=== PATIENT | female | born 1950 | race Caucasian/White ===

== ENCOUNTER 2017-02-08 09:54 | Emergency (ER) | payer MEDICARE ==
[~2017-02-08] VITALS: Ht 165.1 cm; Wt 76.8 kg
[~2017-02-08 09:54] MED LIST: BACL20TA PO; INSU100I13 SUBQ; INSU100I18 SUBQ; LEVO112T4 PO; MAGN400T4 PO; MERO1VIA IV; MULT-1073 PO; MUPI1OIN6 TP; NIAC500C3 PO; NYST15PO5 TP; POTA20TA16 PO; VANC125C3 PO; WARF3TAB7 PO
[2017-02-08 09:59] VITALS: BP 129/77; PULSE 107; RESP 17; O2SAT 94
--- NOTE | 2017-02-08 10:11 | ED.REPORT ---
HPI-General Illness Date of Service Feb 08, 2017 ED Provider: Vinny Salmon MD The patient is a 67 year old female with history of MS with paresis (diagnosed in 1983), hypertension, diabetes mellitus, recurrent UTIs, atrial fibrillation on Coumadin, and breast cancer s/p mastectomy, who presents to the emergency department for a fever and lethargy that was noted by her family member this morning. The patient has had similar symptoms in the past when she has has UTIs. She has a suprapubic catheter in place. She denies cough, shortness of breath, diarrhea, vomiting or rash. Nursing Notes Stated Complaint: FEVER,DEC LOC Chief Complaint: General Complaint Nursing Notes Reviewed: Yes Allergies: Coded Allergies: metronidazole (Verified Allergy, Severe, N/V, 02/17/16) Cephalosporins (Verified Allergy, Unknown, UNKNOWN (IS TAKING ORAL CEFTIN) , 02/17/16) Quinolones (Verified Allergy, Unknown, UNKNOWN Reaction is to Cipro, ) ciprofloxacin (Verified Allergy, Unknown, 02/17/16) levofloxacin (Verified Allergy, Unknown, UNKNOWN, 02/17/16) metoclopramide HCl (Verified Allergy, Unknown, UNKNOWN, 02/17/16) nitrofurantoin (Verified Allergy, Unknown, UNKNOWN, 02/17/16) scopolamine (Verified Allergy, Unknown, UNKNOWN, 02/17/16) trimethoprim (Verified Allergy, Unknown, TONGUE SWELLING, 03/04/16) Leloqgq-Njh-Xlk Reductase Inhibitor (Verified Adverse Reaction, Severe, ELEVATED LIVER ENZYMES, 02/17/16) Sulfa (Sulfonamide Antibiotics) (Verified Adverse Reaction, Severe, NUMB MOUTH, 02/17/16) Uncoded Allergies: HOSPITAL LINENS (Allergy, Unknown, UNKNOWN, 01/10/14) PLASTIC TAPE (Adverse Reaction, Severe, SKIN IRRITATION, BLISTERS, 01/10/14) Scheduled Baclofen (Baclofen) 20 Mg Tablet 20 MG PO BID Insulin Glargine (Lantus U100 Solostar Insulin Pen) 100 Unit/1 Ml Insuln.pen 30 UNIT SUBQ QAM Insulin Glargine (Lantus U100 Solostar Insulin Pen) 100 Unit/1 Ml Insuln.pen 40 UNIT SUBQ QPM Levothyroxine (Levothyroxine) 112 Mcg Tablet 112 MCG PO DAILY Magnesium Oxide (Magnesium Oxide) 400 Mg Tablet 400 MG PO DAILY Meropenem (Meropenem) 1 Gm Vial 1 GM IV BID Multivits-Min/FA/Lycopene/Lut (Centrum Silver Tablet) 1 Each Tablet 1 EACH PO DAILY Mupirocin (Mupirocin) 2 % Oin.pf.david 0.25 GM TP BID Niacin (Niacin) 500 Mg Capsule.er 500 MG PO BID Nystatin (Nystatin) 15 Gm Powder 1 APPLIC TP TID Potassium Chloride (Potassium Chloride) 20 Meq Tab.er.prt 20 MEQ PO DAILY TAKE WITH FOOD Vancomycin (Vancomycin) 125 Mg Capsule 125 MG PO Q12 Warfarin Sodium (Warfarin Sodium) 3 Mg Tablet 0.5-2 TAB PO DAILY Scheduled PRN Insulin Lispro (HumaLOG U100 Insulin Pen) 100 Unit/1 Ml Insuln.pen 5-10 UNIT SUBQ SS PRN PRN hyperglycemia sliding scale insulin General Time Seen by MD: 10:10 Chief Complaint Fever Hx Obtained From: Patient, Daughter Arrived By: Wheelchair Sudden in Onset?: No Onset Occurred: 5 - 8 hours ago Symptom Duration: Since onset Severity: Current: No pain currently Severity: Maximum: No pain Recent Healthcare: No recent hospitalization Similar Sx Previous: Yes Past Medical History Past Medical History Multiple Sclerosis with paresis Nephrolithiasis Recurrent sacral decubitus ulcers Hypothyroid Chronic coumadin anticoagulation DVT and PE Breast cancer Mouth cancer AFib Aspiration penumonia GI Bleeds Liver Disease MRSA Reports: Diabetes mellitus, Hypertension Past Surgical History Mastectomy (Right) Chronic suprapubic catheter Colostomy Pacemaker Family History Noncontributory Smoking History Never Smoker Social History Other Social History: Good social support, Local resident Ambulatory Status Wheelchair Review of Systems Full Review of Systems Constitutional: Reports: Fatigue, Fever, Lethargy Respiratory: Denies: Non-productive cough, Shortness of breath GI: Denies: Diarrhea, Vomiting Skin: Denies Rash Complete sys rev & neg: except as marked. Physical Exam Vital Signs Vital Signs Date Time Temp Pulse Resp B/P Pulse Ox O2 Delivery O2 Flow Rate FiO2 02/08/17 09:59 37.1 107 17 129/77 94 Room Air Initial VS: Reviewed Head / Eyes: Atraumatic, Normocephalic, PERRL ENT: Mucous membranes moist, Conjunctiva normal, No scleral icterus Neck: Supple, Non-tender, Full range of motion Respiratory: Breath sounds normal, Clear to auscultation, No respiratory distress Cardiovascular: Regular rate & rhythm, Heart sounds normal, Intact distal pulses Abdomen / GI: Soft, Non-tender, No guarding, No rebound, No distention Lymphatic: No lymphadenopathy Extremities: No swelling, No tenderness Skin: Warm, Dry, No cyanosis Neurologic: Alert, Oriented, Nonfocal Psychiatric: Mood/affect normal, Behavior normal, Normal thought content General/Constitutional: Awake, Alert, Cooperative Wheelchair bound. Sleepy but alert, and easily arousable. Interpretation & Diagnostics Lab Results Interpretation Test 02/08/17 10:40 Urine Color Bloody (YELLOW) Urine Appearance Turbid (CLEAR,HAZY) Urine pH 8.5 (5.0-8.0) Urine Specific [place] 1.020 (1.003-1.035) Urine Protein 100mg/dL (NEG,TRACE) Urine Glucose (UA) Negativemg/dL (NEGATIVE) Urine Ketones Negativemg/dL (NEGATIVE) Urine Occult Blood Large (NEGATIVE) Urine Nitrite Negative (NEGATIVE) Urine Bilirubin Negative (NEGATIVE) Urine Urobilinogen Normalmg/dL (NORMAL) Urine Leukocyte Esterase Large (NEGATIVE) Urine RBC 11-50/hpf (0-2) Urine WBC 11-50/hpf (0-5) Urine Epithelial Cells Occasional/hpf (NONE-MOD) Urine Crystals None seen (NONE SEEN) Urine Bacteria Moderate/hpf (NONE-FEW) Urine Hyaline Casts None/lpf (NONE) Urine Granular Casts None seen (NONE SEEN) Urine Waxy Casts None seen (NONE SEEN) Urine Red Blood Cell Casts None seen (NONE SEEN) Urine White Blood Cell Casts None seen (NONE SEEN) Urine Mucus Present (None Seen) Urine Trichomonas None seen (NONE SEEN) Urine Yeast None (NONE SEEN) Urinalysis Comment None Urine Culture Reflexed Indicated Re-Eval/Medical Decision Source of Hx: Old records, Family Time of Eval: 11:44 Re-Evaluation/Progress Note: Rechecked the patient. Discussed plan for discharge with antibiotics. She understands and agrees. All questions were addressed. Consultation : Referral / Consult Name: Akbar Marroquin MD Call Returned at: 11:42 Note: Spoke with infectious disease specialist, Dr. Marroquin. He recommends fosfomycin 3 g by mouth once. Counseled Regarding: Diagnosis, Lab results, Need for follow-up, When/why to return to ED Discharge & Departure Primary Impression: Urinary tract infection Urinary tract infection type: catheter-associated UTI Encounter type: initial encounter Qualified Code: T83.51XA - Infection and inflammatory reaction due to indwelling urinary catheter, initial encounter Disposition: Home Discharge Condition All VS Reviewed: Yes Condition: Stable Patient Instructions: Urinary Tract Infection in Women (ED) Additional Instructions: Thank you for entrusting us with your care today. Your urinalysis does show evidence of a urinary tract infection. After speaking with Dr. Marroquin he recommended a one time dose of fosfomycin. We have given you the dose in the emergency department today. Make sure to drink plenty of fluids. Call Dr. Marroquin's office today to schedule a close followup appointment. I also recommend following up with an assembly leader to look further into your drug allergies. Please return to the emergency department if you develop a fever, vomiting, rash, difficulty breathing, or any other new or concerning symptoms. Referrals: Tali Menjivar MD (PCP) Akbar Marroquin MD Attestation Portions of this note were transcribed by Rita Cuevas. I, Dr. Salmon personally performed the history, physical exam and medical decision-making; I reviewed and confirmed the accuracy of the information in the transcribed note. Signed by: Oscar Weston, 02/08/2017 and 1200. copies to: Tali Menjivar MD; Akbar Marroquin MD, Kirk H MD Feb 08, 2017 10:11 Rita Cuevas Feb 08, 2017 10:19 Rita Cuevas Feb 08, 2017 10:19
[2017-02-08 11:11] LABS: APPEARANCE,URINE TURBID (CLEAR,HAZY); COLOR,URINE BLOODY (YELLOW); OCCULT BLOOD,URINE LARGE (NEGATIVE); PH,URINE 8.5 (5.0-8.0); UROBILINOGEN,URINE NORMAL (NORMAL)
[2017-02-08 12:06] VITALS: BP 106/63; PULSE 99; RESP 16; O2SAT 99
[2017-05-07] MEDS ORDERED: DIPH1TAB PO (08:11)
[2017-05-07] MEDS ORDERED: SODI126M NS (08:11)
== END 2017-02-08 12:09 | disposition home or self-care (01) ==
LOC: SED 09:54
DX: T83.511A Infection and inflammatory reaction due to indwelling urethral catheter, initial encounter (principal); R53.83 Other fatigue; B96.89 Other specified bacterial agents as the cause of diseases classified elsewhere; I11.9 Hypertensive heart disease without heart failure; E11.59 Type 2 diabetes mellitus with other circulatory complications; I48.91 Unspecified atrial fibrillation; G35 Multiple sclerosis; E03.9 Hypothyroidism, unspecified; Z86.14 Personal history of Methicillin resistant Staphylococcus aureus infection; Z87.440 Personal history of urinary (tract) infections; Z95.0 Presence of cardiac pacemaker; Z79.01 Long term (current) use of anticoagulants; Z79.4 Long term (current) use of insulin; Z88.1 Allergy status to other antibiotic agents; Z88.2 Allergy status to sulfonamides; Z88.8 Allergy status to other drugs, medicaments and biological substances

== ENCOUNTER 2017-02-24 11:25 | Inpatient (IN) | payer MEDICARE ==
[~2017-02-24] VITALS: Ht 165.1 cm; Wt 78.3 kg
[2017-02-24 11:29] VITALS: BP 122/64; PULSE 95; RESP 18; O2SAT 95
--- NOTE | 2017-02-24 11:52 | ED.REPORT ---
HPI-Abd Pain F 40 and Over Date of Service Feb 24, 2017 ED Provider: Dr. Washington Pt is a 67 y/o female w/ a hx of MS, A-fib on Coumadin, GI bleed, HTN, IDDM, presenting to the ED c/o generalized weakness onset 2 days ago. She c/o associated generalized confusion, nausea, subjective fever, decreased appetite. Pt denies abdominal pain, vomiting, chills, flank pain. She has had UTIs previously with very similar symptoms. Nursing Notes Stated Complaint: POSSIBLE UTI Chief Complaint: Female Abdominal Pain Nursing Notes Reviewed: Yes Allergies: Coded Allergies: metronidazole (Verified Allergy, Severe, N/V, 02/24/17) Cephalosporins (Verified Allergy, Unknown, UNKNOWN (IS TAKING ORAL CEFTIN) , 02/24/17) Quinolones (Verified Allergy, Unknown, UNKNOWN Reaction is to Cipro, ) ciprofloxacin (Verified Allergy, Unknown, 02/24/17) levofloxacin (Verified Allergy, Unknown, UNKNOWN, 02/24/17) metoclopramide HCl (Verified Allergy, Unknown, UNKNOWN, 02/24/17) nitrofurantoin (Verified Allergy, Unknown, UNKNOWN, 02/24/17) scopolamine (Verified Allergy, Unknown, UNKNOWN, 02/24/17) trimethoprim (Verified Allergy, Unknown, TONGUE SWELLING, 02/24/17) Mnbejyg-Aix-Par Reductase Inhibitor (Verified Adverse Reaction, Severe, ELEVATED LIVER ENZYMES, 02/24/17) Sulfa (Sulfonamide Antibiotics) (Verified Adverse Reaction, Severe, NUMB MOUTH, 02/24/17) Uncoded Allergies: HOSPITAL LINENS (Allergy, Unknown, UNKNOWN, 01/10/14) PLASTIC TAPE (Adverse Reaction, Severe, SKIN IRRITATION, BLISTERS, 01/10/14) Scheduled Baclofen (Baclofen) 20 Mg Tablet 20 MG PO BID Levothyroxine (Levothyroxine) 112 Mcg Tablet 112 MCG PO DAILY Magnesium Oxide (Magnesium Oxide) 400 Mg Tablet 400 MG PO DAILY Multivits-Min/FA/Lycopene/Lut (Centrum Silver Tablet) 1 Each Tablet 1 EACH PO DAILY NPH, Human Insulin Isophane (HUMulin-N U100 Insulin Vial) 100 Unit/1 Ml Vial 35 UNIT SUBQ QAM NPH, Human Insulin Isophane (HUMulin-N U100 Insulin Vial) 100 Unit/1 Ml Vial 45 UNIT SUBQ QPM Niacin (Niacin) 500 Mg Capsule.er 500 MG PO BID Potassium Chloride (Potassium Chloride) 20 Meq Tab.er.prt 20 MEQ PO DAILY TAKE WITH FOOD Tamsulosin (Flomax) 0.4 Mg Capsule 0.4 MG PO HS Warfarin Sodium (Warfarin Sodium) 4 Mg Tablet 4 MG PO DAILY Scheduled PRN Insulin Lispro (HumaLOG U100 Insulin Pen) 100 Unit/1 Ml Insuln.pen 5-10 UNIT SUBQ ACHS PRN PRN hyperglycemia sliding scale insulin Nystatin (Nystatin) 15 Gm Powder 1 APPLIC TP TID PRN PRN rash General Time Seen by MD: 11:51 Chief Complaint Other (Weakness) Hx Obtained From: Patient, Spouse Arrived By: Wheelchair Sudden in Onset?: No Onset Occurred: 2 days ago Symptom Duration: Since onset Severity: Current: No pain currently Severity: Maximum: No pain Recent Healthcare: Previous diagnosis Similar Sx Previous: Yes Past Medical History Past Medical History Multiple Sclerosis with paresis Nephrolithiasis Recurrent sacral decubitus ulcers Hypothyroid Chronic coumadin anticoagulation DVT and PE Breast cancer Mouth cancer AFib Aspiration penumonia GI Bleeds Liver Disease MRSA Hx UTIs Reports: Diabetes mellitus, Hypertension Past Surgical History Mastectomy (Right) Chronic suprapubic catheter Colostomy Pacemaker Family History Noncontributory Smoking History Never Smoker Social History Other Social History: Good social support, Local resident Ambulatory Status Wheelchair Review of Systems Constitutional: Reports: Fatigue, Fever, Weakness - generalized, Denies: Chills Cardiovascular: Denies: Chest pain, Dyspnea on exertion GI: Reports: Nausea, Denies: Abdominal pain, Vomiting Complete sys rev & neg: except as marked. Physical Exam Vital Signs Vital Signs (First) Date Time Temp Pulse Resp B/P Pulse Ox O2 Delivery O2 Flow Rate FiO2 02/24/17 11:29 36.8 95 18 122/64 95 Room Air Initial VS: Reviewed, Vital signs normal Head / Eyes: Atraumatic, Normocephalic, PERRL ENT: Mucous membranes moist, Conjunctiva normal, No scleral icterus Neck: Supple, Full range of motion Extremities: Vascular intact, No swelling, No tenderness Skin: Warm, Dry, No cyanosis Neurologic: Alert, Oriented Psychiatric: Mood/affect normal, Behavior normal, Normal thought content General/Constitutional: Awake, Alert, No acute distress, Cooperative, Not toxic appearing Respiratory / Chest: Atraumatic, Breath sounds NL, Breath sounds = bilat, No respiratory distress, No rales, No rhonchi, No wheezing, No retractions, No stridor, No chest tenderness, No chest wall deformity, No crepitus Cardiovascular: Heart rate NL, Regular rhythm, Heart sounds NL, No gallop, No murmurs, No rubs, Cap refill not delayed, Peripheral circulation NL Abdomen: Atraumatic, Soft, Non-tender, No guarding, No rebound, No distention Colostomy in place Suprapubic catheter with cloudy urine in place Back: Painless range of motion, No CVA tenderness Interpretation & Diagnostics Interpretation & Diagnostics: CT KUB w/out contrast: IMPRESSION: 1. Bilateral renal calcifications. 2. Less prominent appearance of calcifications within the left kidney, particularly the layering renal pelvic calcifications, as described above. There is a distal left ureteral calcification measuring 5 mm causing moderate hydronephrosis and hydroureter. 3. Unchanged appearance of Peacock catheter within the bladder and numerous bladder calcifications. 4. Unchanged cholelithiasis. 5. Poorly defined area of questionable low attenuation along the anterior aspect of the liver as described above. This could represent artifact or variability of hepatic steatosis. However, a mass within this region cannot be definitively excluded. Followup with focal ultrasound is recommended. Dictated by: Melody Rea M.D. on 02/24/2017 at 14:28 Approved by: Melody Rea M.D. on 02/24/2017 at 14:35 Lab Results Interpretation Result Diagram: 02/24/17 1240 02/24/17 1240 Test 02/24/17 12:14 02/24/17 12:15 02/24/17 12:40 02/24/17 13:13 Urine Color Straw (YELLOW) Urine Appearance Cloudy (CLEAR,HAZY) Urine pH 8.5 (5.0-8.0) Urine Specific [place] 1.010 (1.003-1.035) Urine Protein 100mg/dL (NEG,TRACE) Urine Glucose (UA) Negativemg/dL (NEGATIVE) Urine Ketones Tracemg/dL (NEGATIVE) Urine Occult Blood Moderate (NEGATIVE) Urine Nitrite Positive (NEGATIVE) Urine Bilirubin Negative (NEGATIVE) Urine Urobilinogen Normalmg/dL (NORMAL) Urine Leukocyte Esterase Large (NEGATIVE) Urine RBC 3-10/hpf (0-2) Urine WBC 0-5/hpf (0-5) Urine Epithelial Cells Occasional/hpf (NONE-MOD) Urine Crystals Triple phosphate Urine Bacteria Many/hpf (NONE-FEW) Urine Hyaline Casts None/lpf (NONE) Urine Granular Casts None seen (NONE SEEN) Urine Waxy Casts None seen (NONE SEEN) Urine Red Blood Cell Casts None seen (NONE SEEN) Urine White Blood Cell Casts None seen (NONE SEEN) Urine Mucus None seen (None Seen) Urine Trichomonas None seen (NONE SEEN) Urine Yeast None (NONE SEEN) Urinalysis Comment None Urine Culture Reflexed Indicated Hold Urine Received (Received) White Blood Count 11.9th/mm3 (3.8-10.1) Red Blood Count 3.93mil/mm3 (3.90-5.20) Hemoglobin 10.9g/dL (12.0-15.6) Hematocrit 34.0% (35.0-46.0) Mean Corpuscular Volume 86.5fL (81-100) Mean Corpuscular Hemoglobin 27.7pg (27.0-35.0) Mean Corpuscular Hemoglobin Concent 32.1% (32.0-37.0) Red Cell Distribution Width 15.5% (12.3-15.4) Platelet Count 184bil/L (150-400) Neutrophils (%) (Auto) 86.3% (40-74) Lymphocytes (%) (Auto) 6.3% (14-46) Monocytes (%) (Auto) 6.4% (4-12) Eosinophils (%) (Auto) 0.3% (0-5) Basophils (%) (Auto) 0.2% (0-3) Sodium Level 134mEq/L (134-144) Potassium Level 4.7mEq/L (3.5-5.2) Chloride Level 100mEq/L (97-108) Carbon Dioxide Level 15mmol/L (18-29) Blood Urea Nitrogen 46mg/dL (8-27) Creatinine 2.30mg/dL (0.57-1.00) Estimat Glomerular Filtration Rate 30mL/min (>59) Glucose Level 310mg/dL (60-99) Lactic Acid Level 1.8mmol/L (0.4-2.0) Calcium Level 10.5mg/dL (8.5-10.1) Hold Grider Top Tube Received (Received) Ketones Negative (Negative) Hold Purple Top Tube Received (Received) Hold Blue Top Tube Received (Received) Procalcitonin 51.38ng/mL (0.00-0.08) Hold [place] Top Tube Received (Received) Re-Eval/Medical Decision Med Decision/Clinical Course Acute kidney injury and probable UTI, incidentally there is a left kidney stone. Urology is consulted for this. Cefuroxime will be given IV. After discussion with the patient, her , and the admitting physician this seemed like the most reasonable choice as the patient has tolerated this in the past. Given the acute kidney injury, patient will be admitted for IV hydration. Source of Hx: Old records Re-Evaluation/Progress : Time of Eval: 13:24 Re-Evaluation/Progress Note: Pt rechecked. Informed pt of need for admission for kidney injury management. Pt understands and agrees with plan for admission. All questions addressed. Consultation #1: Referral / Consult Name: Krishna Leary MD Consulted With: Hospitalist Call Returned at: 13:39 Furrier Apprentice: Will see patient, Agrees with eval, Agrees with plan, Accepts admit Note: Recommends to give Cefuroxime 13:50 - I called back Dr. Leary regarding the patient's allergies. The patient's states she had an anaphylactic reaction the last time it was given. He would still like Cefuroxime to be administered. Consultation #2: Referral / Consult Name: Leigha Arora MD Consulted With: Urology Call Returned at: 15:08 Furrier Apprentice: Agrees with eval, Agrees with plan Note: Agrees with plan for admit for hydration and antibiotics, at this point there is no indication for stenting, keep NPO at midnight, will have PA come and see her. Counseled Regarding: Diagnosis, Lab results, Need for admission Discharge & Departure Primary Impression: Acute kidney injury Disposition: ADMITTED TO HOSPITAL Discharge Condition All VS Reviewed: Yes Condition: Stable Referrals: Tali Menjivar MD (PCP) Scribe Attestation Portions of this note were transcribed by Sancho Irizarry. I, Dr. Washington, personally performed the history, physical exam and medical decision-making; I reviewed and confirmed the accuracy of the information in the transcribed note. Signed by Oscar Mensah, 02/24/17 - 1230 copies to: Tali Menjivar MD, Timothy S DO Feb 24, 2017 11:52 SANCHO IRIZARRY Feb 24, 2017 12:18
[2017-02-24] MEDS ORDERED: 0.9% Sodium Chloride 500 ML IV ONE (12:15)
[2017-02-24 12:50] LABS: BASOPHILS % (AUTO) 0.2 % (0-3); EOSINOPHILS % (AUTO) 0.3 % (0-5); MONOCYTES % (AUTO) 6.4 % (4-12); Mean Corpuscular Hemoglobin 27.7 pg (27.0-35.0); Mean Corpuscular Volume 86.5 fL (81-100); NEUTROPHILS % (AUTO) 86.3 % (40-74); Platelet Count 184 bil/L (150-400)
[2017-02-24 13:10] LABS: APPEARANCE,URINE CLOUDY (CLEAR,HAZY); COLOR,URINE STRAW (YELLOW); OCCULT BLOOD,URINE MODERATE (NEGATIVE); PH,URINE 8.5 (5.0-8.0); UROBILINOGEN,URINE NORMAL (NORMAL)
[2017-02-24] MEDS ORDERED: NPH,100V11 SUBQ ×2 (13:43)
[2017-02-24] MEDS ORDERED: WARF4TAB6 PO (13:43)
[2017-02-24] MEDS ORDERED: TAMS0.4C98 PO (13:44)
[2017-02-24] MEDS ORDERED: Cefuroxime Inj 1,500 MG in Dextrose 5% 100 ML IV ONE (13:50)
[2017-02-24] MEDS ORDERED: 0.9% Sodium Chloride 1,000 ML IV SCH (14:02)
[2017-02-24] MEDS ORDERED: Alum-Mag Hydrox-Simeth 30 mL Suspension PO PRN ×2 (14:05→14:10)
[2017-02-24] MEDS ORDERED: Ondansetron 2 mg/mL 2 mL Inj IVPUSH PRN ×2 (14:05→14:10)
[2017-02-24] MEDS ORDERED: Polyethylene Glycol (PEG) 17 Gm Powder PO PRN (14:10)
[2017-02-24] MEDS: 0.9% Sodium Chloride 1,000 ML IV SCH ×3 (14:11→20:27)
--- NOTE | 2017-02-24 14:36 | DRSVH ---
PROCEDURE: CT KUB ([id number]) INDICATIONS: leukocytosis, h/o stones, UTI TECHNIQUE: Noncontrast 5 mm thick sections acquired from the diaphragms to the symphysis. 5 mm thick coronal an d sagittal reformats were then performed. For radiation dose reduction, the following was used: aut omated exposure control, adjustment of mA and/or kV according to patient size. COMPARISON: [facility], CT, CT KUB, 09/17/2016, 13:17. FINDINGS: Image quality: Excellent. Lung bases: Lung bases are clear. Heart size is normal. Urinary system: Both kidneys are mildly atrophic. The right kidney demonstrates an unchanged exophyt ic cyst with partial rim calcification. There are several punctate nonobstructing calcifications with in the inferior pole. There are unchanged. The left kidney demonstrates approximately 10-12 calcifica tions throughout the kidney the largest in the posterior aspect of the midpole measuring approximatel y 10 mm Hounsfield units 376. There are dependent layering calcifications within the renal pelvis, a less prominent when compared to prior exam. There is a distal right ureteral calculus measuring 5 mm, Hounsfield units to 72. There is moderate hydronephrosis and hydroureter on the left. A suprapubic F oley catheter is present. Once again, there are multiple calcifications within the bladder lumen. Other solid organs: Liver and spleen are normal in size. There is poorly defined questionable low a ttenuation along the anterior left and right hepatic lobes seen on series 2 image 22. The liver overa ll demonstrates steatosis. Gallbladder demonstrate a large luminal calcification without wall thicken ing. No interval change.. Pancreas is normal in contours. No adrenal nodules. Peritoneum and bowel: Unenhanced bowel loops demonstrate normal wall thickness and caliber. No free fluid or air. Nodes and vessels: No retroperitoneal or mesenteric adenopathy by size criteria. Aorta and inferior vena cava are normal in caliber. Abdominal wall: No ventral hernias. Pelvis: No free pelvic fluid. No inguinal hernias or adenopathy. Bones: No suspicious bony lesions. No vertebral body compression fractures. IMPRESSION: 1. Bilateral renal calcifications. 2. Less prominent appearance of calcifications within the left kidney, particularly the layering ora l pelvic calcifications, as described above. There is a distal left ureteral calcification measuring 5 mm causing moderate hydronephrosis and hydroureter. 3. Unchanged appearance of Peacock catheter within the bladder and numerous bladder calcifications. 4. Unchanged cholelithiasis. 5. Poorly defined area of questionable low attenuation along the anterior aspect of the liver as desc ribed above. This could represent artifact or variability of hepatic steatosis. However, a mass withi n this region cannot be definitively excluded. Followup with focal ultrasound is recommended. Dictated by: Melody Rea M.D. on 02/24/2017 at 14:28 Approved by: Melody Rea M.D. on 02/24/2017 at 14:35
[2017-02-24 14:55] VITALS: BP 144/84; PULSE 104; RESP 18; O2SAT 94
[2017-02-24 14:56] VITALS: BP 144/84; PULSE 104; RESP 18; O2SAT 94
[2017-02-24 16:41] LABS: INR 1.12 ratio
--- NOTE | 2017-02-24 17:17 | PCM.PNSURG ---
Subjective Date of Service: Feb 24, 2017 Date of Service: Feb 24, 2017 Visit Information: Reason for Visit [place] Date of Admission: Feb 24, 2017 at 14:38 Hospital Day #1 Subjective: Pt went for renal u/s during time of visit, unable to see her as she was not yet brought [place] [facility] [place] Vital Sign- Last 8 Hours Date Time Temp Pulse Resp B/P Pulse Ox O2 Delivery O2 Flow Rate FiO2 02/24/17 14:56 36.8 104 18 144/84 94 Room Air 02/24/17 14:55 104 18 144/84 94 Room Air 02/24/17 11:29 36.8 95 18 122/64 95 Room Air Result Diagram: 02/24/17 1240 02/24/17 1240 Diagnostics: CT KUB 02/24/17: 1. Bilateral renal calcifications. 2. Less prominent appearance of calcifications within the left kidney, particularly the layering renal pelvic calcifications, as described above. There is a distal left ureteral calcification measuring 5 mm causing moderate hydronephrosis and hydroureter. 3. Unchanged appearance of Peacock catheter within the bladder and numerous bladder calcifications. 4. Unchanged cholelithiasis. 5. Poorly defined area of questionable low attenuation along the anterior aspect of the liver as described above. This could represent artifact or variability of hepatic steatosis. However, a mass within this region cannot be definitively excluded. Followup with focal ultrasound is recommended Assessment & Plan Impression Pt is a 67YOF with PMH significant for MS, afib on coumadin, GI bleed, HTN, DM, known to our service for h/o bladder neck contractures, chronic suprapubic catheter, and nephrolithiasis. She presented to the ER today with c/o weakness, confusion, nausea, subjective fever, poor appetite ongoing x 2 days. She denied any abdominal or flank pain, denied any vomiting, chills. CT revealed 5mm LEFT distal ureteral calculus with moderate associated hydroureteronephrosis. 1) Acute Kidney Injury- Pt admitted for IV hydration and treatment of presumed UTI with IV antibiotics. Elevated Creatinine 2.30 on admission, Baseline around 1.0, will continue to monitor 2) LEFT ureteral calculus- We will continue medical management, no indication for stent placement at this time. Pt should remain NPO. We will continue to monitor. Indications for stent placement include unresolved kidney injury, fever , signs of sepsis. 3) UTI- Urine culture is pending , pt started on IV Cefuroxime 4) Leukocytosis- WBC 11.9 on admission, will continue to monitor 5) NPO- please keep NPO at midnight Problems: Chelita Vega PA-C Feb 24, 2017 17:17
[2017-02-24 17:49] VITALS: PULSE 93
--- NOTE | 2017-02-24 17:59 | NUR ---
admission patient arrived to bed 249-1 at 1745hrs. denies any pain/discomfort. denies SOB, N/V, dizziness, or lightheaded. patient total care, bedrest secondary to MS history. Homa lift to wheelchair at baseline.
--- NOTE | 2017-02-24 18:11 | DRSVH ---
PROCEDURE: US RENAL SONOGRAM INDICATIONS: Possible Hydronephrosis TECHNIQUE: Real-time scanning was performed of the kidneys and bladder, with image documentation. COMPARISON: [facility], CT, CT KUB, 02/24/2017, 14:19. FINDINGS: Kidneys: Kidneys are normal in size. Right kidney measures 11.3 cm long; left kidney measures 15.6 cm long. Right renal cortical thickness is 1.5 cm; left renal cortical thickness is 1.2 cm. there i s a 4.0 x 3.0 x 3.3 cm right renal cyst with mural calcification. This measured 3.6 x 3.0 x 3.3 cm on the study dated 01/21/16. There is severe left hydronephrosis. A cluster of punctate renal calculi ar e present within the central left renal collecting system. The nonobstructing calcifications are also present within the left lower pole. The proximal left ureter is markedly dilated. Bladder: The bladder is decompressed and a Peacock catheter is present. Miscellaneous: No free pelvic fluid. IMPRESSION: 1. Severe left hydronephrosis with multiple nonobstructing calculi. 2. Right renal cyst with mural calcification. If further characterization is warranted, renal mass pr otocol CT may be helpful to evaluate for mural nodularity. Dictated by: Carmen Matias M.D. on 02/24/2017 at 18:04 Approved by: Carmen Matias M.D. on 02/24/2017 at 18:09
[2017-02-24 18:54] VITALS: BP 128/69; PULSE 102; RESP 22; O2SAT 95
--- NOTE | 2017-02-24 20:09 | PCM.CONPHA ---
Subjective Date of Service: Feb 24, 2017 Reason for Pharmacy Consult: Anticoagulation Management Objective Vital Signs Date Time Temp Pulse Resp B/P Pulse Ox O2 Delivery O2 Flow Rate FiO2 02/24/17 18:54 37.2 102 22 128/69 95 Room Air 02/24/17 17:49 93 02/24/17 14:56 36.8 104 18 144/84 94 Room Air 02/24/17 14:55 104 18 144/84 94 Room Air 02/24/17 11:29 36.8 95 18 122/64 95 Room Air Weight (Kilograms): 76.82 Height (Feet): 5 Height (Inches): 5 Test 02/24/17 12:14 02/24/17 12:15 02/24/17 12:40 02/24/17 13:13 Urine Color Straw (YELLOW) Urine Appearance Cloudy (CLEAR,HAZY) Urine pH 8.5 (5.0-8.0) Urine Specific [place] 1.010 (1.003-1.035) Urine Protein 100mg/dL (NEG,TRACE) Urine Glucose (UA) Negativemg/dL (NEGATIVE) Urine Ketones Tracemg/dL (NEGATIVE) Urine Occult Blood Moderate (NEGATIVE) Urine Nitrite Positive (NEGATIVE) Urine Bilirubin Negative (NEGATIVE) Urine Urobilinogen Normalmg/dL (NORMAL) Urine Leukocyte Esterase Large (NEGATIVE) Urine RBC 3-10/hpf (0-2) Urine WBC 0-5/hpf (0-5) Urine Epithelial Cells Occasional/hpf (NONE-MOD) Urine Crystals Triple phosphate Urine Bacteria Many/hpf (NONE-FEW) Urine Hyaline Casts None/lpf (NONE) Urine Granular Casts None seen (NONE SEEN) Urine Waxy Casts None seen (NONE SEEN) Urine Red Blood Cell Casts None seen (NONE SEEN) Urine White Blood Cell Casts None seen (NONE SEEN) Urine Mucus None seen (None Seen) Urine Trichomonas None seen (NONE SEEN) Urine Yeast None (NONE SEEN) Urinalysis Comment None Urine Culture Reflexed Indicated Hold Urine Received (Received) White Blood Count 11.9th/mm3 (3.8-10.1) Red Blood Count 3.93mil/mm3 (3.90-5.20) Hemoglobin 10.9g/dL (12.0-15.6) Hematocrit 34.0% (35.0-46.0) Mean Corpuscular Volume 86.5fL (81-100) Mean Corpuscular Hemoglobin 27.7pg (27.0-35.0) Mean Corpuscular Hemoglobin Concent 32.1% (32.0-37.0) Red Cell Distribution Width 15.5% (12.3-15.4) Platelet Count 184bil/L (150-400) Neutrophils (%) (Auto) 86.3% (40-74) Lymphocytes (%) (Auto) 6.3% (14-46) Monocytes (%) (Auto) 6.4% (4-12) Eosinophils (%) (Auto) 0.3% (0-5) Basophils (%) (Auto) 0.2% (0-3) Sodium Level 134mEq/L (134-144) Potassium Level 4.7mEq/L (3.5-5.2) Chloride Level 100mEq/L (97-108) Carbon Dioxide Level 15mmol/L (18-29) Blood Urea Nitrogen 46mg/dL (8-27) Creatinine 2.30mg/dL (0.57-1.00) Estimat Glomerular Filtration Rate 30mL/min (>59) Glucose Level 310mg/dL (60-99) Lactic Acid Level 1.8mmol/L (0.4-2.0) Calcium Level 10.5mg/dL (8.5-10.1) Hold Grider Top Tube Received (Received) Ketones Negative (Negative) Hold Purple Top Tube Received (Received) Prothrombin Time 12.0sec (8.1-12.5) Prothromb Time International Ratio 1.12ratio Hold Blue Top Tube Received (Received) Procalcitonin 51.38ng/mL (0.00-0.08) Hold Germfask Top Tube Received (Received) Assessment/Plan Assessment/Plan Warfarin management per pharmacy Indication: hx of DVT/PE per previous Rx records INR goal: 2-3 Home dose: 4 mg daily per med rec; previous Rx records indicate 4 mg two days per week and 2 mg on all other days of the week. Pertinent info: - Anticoagulated with heparin 5000 u Q12H - UTI treated with cefuroxime - Pending stent placement tomorrow - INR today: 1.12 - Per RN, patient states she has not missed any doses (usually prepared by who is not present). Previous records indicate questionable compliance. - On previous admit, patient was therapeutically anticoagulated with ~3 mg daily. Given subtherapeutic INR, will give one time bolus dose tonight. Give warfarin 5 mg PO once this evening. Serial INRs x5 have been ordered. Pharmacy to continue to monitor and dose warfarin daily. Thank you, Kasandra Aguayo Pharmacist Kasandra Aguayo Feb 24, 2017 20:09
[2017-02-24] MEDS ORDERED: CEFUROXIME IV SCH (20:30)
[2017-02-24] MEDS ORDERED: DEXTROSE 5% IV SCH (20:30)
[2017-02-24] MEDS: Heparin 5,000 Unit/mL Inj SUBQ SCH (20:35)
--- NOTE | 2017-02-24 21:22 | PCM.HPMED ---
Subjective Date of Service Feb 24, 2017 Primary Provider: Admitting Physician: Krishna Leary MD Primary Care Physician: Tali Menjivar MD Attending Physician: Krishna Leary MD Admit Status: From the Emergency Department, Admit to [place] Team Chief Complaint: "Foul-smelling urine" History of Present Illness: The patient is a pleasant 67-year-old white female with history of multiple sclerosis, atrial fibrillation on Coumadin, hypertension, and insulin-dependent diabetes mellitus who presented to the emergency room department at [facility] brought in in a private vehicle by her complaining of generalized weakness onset 2 days ago. The reason she decided to come in when she did this because she had "foul-smelling urine" according to her . Patient also complained of generalized confusion, nausea, subjective fever, decreased appetite the patient denied abdominal pain, vomiting, chills, flank pain. Patient has had a history of recurrent urinary tract infections previously with very similar symptoms. The patient was evaluated in the emergency room by Dr. Curt Galdamez who felt that the patient had an acute kidney injury and probable urinary tract infection. Incidentally noted that there was a left ureteral stone. Urology was consulted for this after consultation with possible cervicitis or cefuroxime was given in the emergency room. Patient has multiple drug allergies. The patient tolerated the cefuroxime very well. The patient was admitted to the hospital service for further evaluation and treatment. Review of Systems: General the patient has not lost any weight recently or has any other constitutional symptoms. HEENT: Patient has no headache, patient has no diplopia, patient has no changes in vision. Patient has no problems with their ears, nose or throat. Patient has no known new dental problems. Patient has no pharyngitis or history of thrush. Neck: Patient has no stiffness in the neck. Patient has no lymphadenopathy. Patient has no other problems with their neck. Pulmonary: Patient has no shortness of breath, no cough, no expectoration of sputum. Patient has no pleurisy. Patient has no chest pain. Patient has no history of asthma or COPD. Cardiovascular: Patient has no chest pain. Patient has no history of heart murmur. Patient has no palpitations. Patient has no history of myocardial infarction. Patient has no history of coronary artery disease. Patient has a pacemaker and has a history of atrial fibrillation. Gastrointestinal: Patient has no history of hepatitis A, B or C. Patient has no history of peptic ulcer disease. Patient has no history of gastroesophageal reflux disease. Patient has no history of nausea, vomiting, or diarrhea. Patient has no history of hematemesis, hematochezia, or melena. Patient has no history of colitis. The computerized history states that the patient has a history of liver disease. However, she is unaware of this and her Angel is unaware of this. Renal: Patient has no history of kidney disease. However, patient has a history of recurrent kidney stones and has been told to stop drinking ice tea to help reduce the number of stones. She is also had recurrent urinary tract infections. Genitourinary: Patient has no history of dysuria, frequency, or incontinence. Patient has no previous history of genitourinary problems. Musculoskeletal: Patient has no history of muscular skeletal problems. Neurologic: The patient has a history of multiple sclerosis and is bedridden and has been so for probably 10 years. She is unable to move her lower extremities. Patient has no history of stroke, no history of seizure, no history of TIA. Psychiatric: Patient has no history of psychiatric problems. The remainder of the entire review of systems was reviewed with patient and is as mentioned above otherwise negative. Allergies Coded Allergies: metronidazole (Verified Allergy, Severe, N/V, 02/24/17) Cephalosporins (Verified Allergy, Unknown, UNKNOWN (IS TAKING ORAL CEFTIN) , 02/24/17) Quinolones (Verified Allergy, Unknown, UNKNOWN Reaction is to Cipro, ) ciprofloxacin (Verified Allergy, Unknown, 02/24/17) levofloxacin (Verified Allergy, Unknown, UNKNOWN, 02/24/17) metoclopramide HCl (Verified Allergy, Unknown, UNKNOWN, 02/24/17) nitrofurantoin (Verified Allergy, Unknown, UNKNOWN, 02/24/17) scopolamine (Verified Allergy, Unknown, UNKNOWN, 02/24/17) trimethoprim (Verified Allergy, Unknown, TONGUE SWELLING, 02/24/17) Wvpajpv-Fcp-Ubp Reductase Inhibitor (Verified Adverse Reaction, Severe, ELEVATED LIVER ENZYMES, 02/24/17) Sulfa (Sulfonamide Antibiotics) (Verified Adverse Reaction, Severe, NUMB MOUTH, 02/24/17) Uncoded Allergies: HOSPITAL LINENS (Allergy, Unknown, UNKNOWN, 01/10/14) PLASTIC TAPE (Adverse Reaction, Severe, SKIN IRRITATION, BLISTERS, 01/10/14) Home Medications Scheduled Baclofen (Baclofen) 20 Mg Tablet 20 MG PO BID Levothyroxine (Levothyroxine) 112 Mcg Tablet 112 MCG PO DAILY Magnesium Oxide (Magnesium Oxide) 400 Mg Tablet 400 MG PO DAILY Multivits-Min/FA/Lycopene/Lut (Centrum Silver Tablet) 1 Each Tablet 1 EACH PO DAILY NPH, Human Insulin Isophane (HUMulin-N U100 Insulin Vial) 100 Unit/1 Ml Vial 35 UNIT SUBQ QAM NPH, Human Insulin Isophane (HUMulin-N U100 Insulin Vial) 100 Unit/1 Ml Vial 45 UNIT SUBQ QPM Niacin (Niacin) 500 Mg Capsule.er 500 MG PO BID Potassium Chloride (Potassium Chloride) 20 Meq Tab.er.prt 20 MEQ PO DAILY TAKE WITH FOOD Tamsulosin (Flomax) 0.4 Mg Capsule 0.4 MG PO HS Warfarin Sodium (Warfarin Sodium) 4 Mg Tablet 4 MG PO DAILY Scheduled PRN Insulin Lispro (HumaLOG U100 Insulin Pen) 100 Unit/1 Ml Insuln.pen 5-10 UNIT SUBQ ACHS PRN PRN hyperglycemia sliding scale insulin Nystatin (Nystatin) 15 Gm Powder 1 APPLIC TP TID PRN PRN rash PMH Multiple Sclerosis with paresis. Patient and her estimates that she has had multiple sclerosis for approximately 30 years. Nephrolithiasis. Patient states that she has had frequent recurrences of nephrolithiasis. She has been told to stop drinking iced tea. Recurrent sacral decubitus ulcers History of Hypothyroid after thyroidectomy resection and radiation therapy Chronic coumadin anticoagulation History of DVT and PE History of Breast cancer History of Mouth cancer History of AFib History of Aspiration penumonia History of GI Bleeds listed in the computerized record. However, the patient and the patient's do not recall this history. History of Liver Disease is listed in the computerized record. However, the patient and the patient's are also unaware this History of MRSA History of recurrent UTIs History of insulin-dependent Diabetes mellitus History of Hypertension Surgical History Mastectomy (Right) performed by Dr. Akbar Elizalde. Chronic suprapubic catheter placement Colostomy Pacemaker Muscle flap for decubitus ulcer 2 Tonsillectomy Family History Patient's mother at 82 Conditions of dementia. Patient's father at the age of 80 of leukemia. Patient has one cousin with multiple sclerosis Patient's great grandfather had multiple sclerosis Patient has 2 brothers one has prostate cancer and one has a melanoma with metastasis to the brain and is on chemotherapy. Social History Hx Alcohol Use: Yes (occasional) Hx Substance Use: No Hx Tobacco Use: No Smoking Status: Never Smoker Living Arrangement: with Family (The patient lives with her Angel) Additional Information The patient was born in [place] and grew up in [place]. Her great grandfather was Joby Tracey who founded [place] and there is a statue of him in town. The patient went to [employer] and graduated. The patient went to [employer] for 1 year and had a tough time with chemistry and dropped out. 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 The patient met her Angel through her best friend and she has been for 43 years. She is today 2 children one boy who is in [place] and one girl who was in [place] living with the patient and Angel. The patient has been bedbound for approximately 10 years now. She has a lift to get her into a wheelchair for transportation. Exam Vital Signs Vital Sign - Last Date Time Temp Pulse Resp B/P Pulse Ox O2 Delivery O2 Flow Rate FiO2 02/24/17 18:54 37.2 102 22 128/69 95 Room Air Exam General: Patient is in no apparent distress. She is lying comfortably supine in bed. HEENT: Head is atraumatic and normocephalic. Eyes: Pupils are equally round and reactive to light and accommodation. Extraocular muscles are intact. Sclera are white, anicteric. Subconjunctival mucosa is pink. Ears and nose are unremarkable. Oropharynx: There is no mucosal lesions, there is no thrush, there is no pharyngitis. Dentition is poor Neck: Is supple, there are no nodes, or masses or tenderness. Chest: Is clear to auscultation and percussion. There are no rales, rhonchi, wheezes or rubs. Heart: Rate is controlled, rhythm is irregular. There is no murmur, rub or gallop. Abdomen: Good bowel sounds are present. Abdomen is obese, soft, nontender, no organomegaly or masses were appreciated. Colostomy bag is present on the left side of the abdomen as well functional. There is a suprapubic catheter. Extremities: Are symmetrical and well perfused. There is no edema, there is no cellulitis, no rash. She has a small decubitus ulcer in the sacral area which is only a few millimeters in diameter and appears to have some purulent drainage. Neurologic: Cranial nerves II through XII are intact. The patient is essentially paraplegic with no movement of the lower extremities. Her upper extremities are weak but strength is symmetrical. There is bilateral foot drop. Psychiatric: Patients mood is calm and shows no sign of agitation. Genital: Deferred Rectal: Deferred Lab and Diagnostics Result Diagram: 02/24/17 1240 02/24/17 1240 Microbiology 1 and urine cultures are pending. X-Rays, CTs and MRIs PROCEDURE: US RENAL SONOGRAM INDICATIONS: Possible Hydronephrosis TECHNIQUE: Real-time scanning was performed of the kidneys and bladder, with image documentation. COMPARISON: [facility], CT, CT KUB, 02/24/2017, 14:19. FINDINGS: Kidneys: Kidneys are normal in size. Right kidney measures 11.3 cm long; left kidney measures 15.6 cm long. Right renal cortical thickness is 1.5 cm; left renal cortical thickness is 1.2 cm. there is a 4.0 x 3.0 x 3.3 cm right renal cyst with mural calcification. This measured 3.6 x 3.0 x 3.3 cm on the study dated 01/21/16. There is severe left hydronephrosis. A cluster of punctate renal calculi are present within the central left renal collecting system. The nonobstructing calcifications are also present within the left lower pole. The proximal left ureter is markedly dilated. Bladder: The bladder is decompressed and a Peacock catheter is present. Miscellaneous: No free pelvic fluid. IMPRESSION: 1. Severe left hydronephrosis with multiple nonobstructing calculi. 2. Right renal cyst with mural calcification. If further characterization is warranted, renal mass protocol CT may be helpful to evaluate for mural nodularity. Dictated by: Carmen Matias M.D. on 02/24/2017 at 18:04 Approved by: Carmen Matias M.D. on 02/24/2017 at 18:09 PROCEDURE: CT KUB ([id number]) INDICATIONS: leukocytosis, h/o stones, UTI TECHNIQUE: Noncontrast 5 mm thick sections acquired from the diaphragms to the symphysis. 5 mm thick coronal and sagittal reformats were then performed. For radiation dose reduction, the following was used: automated exposure control, adjustment of mA and/or kV according to patient size. COMPARISON: [facility], CT, CT KUB, 09/17/2016, 13:17. FINDINGS: Image quality: Excellent. Lung bases: Lung bases are clear. Heart size is normal. Urinary system: Both kidneys are mildly atrophic. The right kidney demonstrates an unchanged exophytic cyst with partial rim calcification. There are several punctate nonobstructing calcifications within the inferior pole. There are unchanged. The left kidney demonstrates approximately 10-12 calcifications throughout the kidney the largest in the posterior aspect of the midpole measuring approximately 10 mm Hounsfield units 376. There are dependent layering calcifications within the renal pelvis, a less prominent when compared to prior exam. There is a distal right ureteral calculus measuring 5 mm, Hounsfield units to 72. There is moderate hydronephrosis and hydroureter on the left. A suprapubic Peacock catheter is present. Once again, there are multiple calcifications within the bladder lumen. Other solid organs: Liver and spleen are normal in size. There is poorly defined questionable low attenuation along the anterior left and right hepatic lobes seen on series 2 image 22. The liver overall demonstrates steatosis. Gallbladder demonstrate a large luminal calcification without wall thickening. No interval change.. Pancreas is normal in contours. No adrenal nodules. Peritoneum and bowel: Unenhanced bowel loops demonstrate normal wall thickness and caliber. No free fluid or air. Nodes and vessels: No retroperitoneal or mesenteric adenopathy by size criteria. Aorta and inferior vena cava are normal in caliber. Abdominal wall: No ventral hernias. Pelvis: No free pelvic fluid. No inguinal hernias or adenopathy. Bones: No suspicious bony lesions. No vertebral body compression fractures. IMPRESSION: 1. Bilateral renal calcifications. 2. Less prominent appearance of calcifications within the left kidney, particularly the layering renal pelvic calcifications, as described above. There is a distal left ureteral calcification measuring 5 mm causing moderate hydronephrosis and hydroureter. 3. Unchanged appearance of Peacock catheter within the bladder and numerous bladder calcifications. 4. Unchanged cholelithiasis. 5. Poorly defined area of questionable low attenuation along the anterior aspect of the liver as described above. This could represent artifact or variability of hepatic steatosis. However, a mass within this region cannot be definitively excluded. Followup with focal ultrasound is recommended. Dictated by: Melody Rea M.D. on 02/24/2017 at 14:28 Approved by: Melody Rea M.D. on 02/24/2017 at 14:35 Assessment & Plan The patient is a pleasant 67-year-old white female with history of multiple sclerosis, atrial fibrillation on Coumadin, hypertension, and insulin-dependent diabetes mellitus who presented to the emergency room department at [facility] brought in in a private vehicle by her complaining of generalized weakness onset 2 days ago. The reason she decided to come in when she did this because she had "foul-smelling urine" according to her . Patient also complained of generalized confusion, nausea, subjective fever, decreased appetite the patient denied abdominal pain, vomiting, chills, flank pain. Patient has had a history of recurrent urinary tract infections previously with very similar symptoms. The patient was evaluated in the emergency room by Dr. Curt Galdamez who felt that the patient had an acute kidney injury and probable urinary tract infection. Incidentally noted that there was a left ureteral stone. Urology was consulted for this after consultation with possible cervicitis or cefuroxime was given in the emergency room. Patient has multiple drug allergies. The patient tolerated the cefuroxime very well. The patient was admitted to the hospital service for further evaluation and treatment. # Urinary tract infection with sepsis presenting with confusion, nausea and subjective fever and decreased appetite. - Patient has numerous drug allergies (see list) we have decided to treat the patient was cefuroxime which she has tolerated in the past. - Continue cefuroxime awaiting urine culture results. - Patient tolerated her first dose of cefuroxime quite well. - IV hydration # Multiple sclerosis - Patient is bedridden with suprapubic catheter and is unable to move her lower extremities. - She has a constant risk for recurrent infection despite having a suprapubic catheter changed every 2 weeks. - Patient is a small decubitus ulcer which we will culture and consult the wound care team. - Continue supportive care. - We will consult physical therapy and occupational therapy. # Atrial fibrillation - Rate appears to be controlled with pacemaker - We will continue Coumadin per pharmacy - Check daily PT/INR # Nephrolithiasis - Urology has been consulted and appreciate their input. Will follow the recommendations - Patient to be nothing by mouth after midnight in the event she may need surgery due to severe hydronephrosis on the left with left ureteral calculi as seen on ultrasound. - Continue IV hydration and cefuroxime. - Continue Flomax. # History of DVT and pulmonary embolism - Continue Coumadin per pharmacy. # History of MRSA nasal swab. - We will repeat nasal swab for MRSA. - Check decubitus ulcer, which is quite small, for culture # Decreased level of consciousness - Likely due to sepsis from the urinary tract infection - We will have speech therapy evaluate the patient. Disposition: Patient is admitted as an inpatient as patient is to be for more than 2 midnights for the evaluation and treatment of the above condition. Pain Evaluation: Adequate Pain Control GI Prophylaxis: Not indicated VTE Prophylaxis: Sub-Q Heparin (Unfractionated) Resuscitation Status: CPR: Attempt Resuscitation Krishna Leary MD Feb 24, 2017 21:22
[2017-02-24] MEDS: Insulin Human NPH 100 Unit/mL 3 mL Inj SUBQ SCH (21:26)
[2017-02-24 23:00] VITALS: BP 135/71; PULSE 101; RESP 16; O2SAT 94
[2017-02-25] VITALS (8 sets, daily range): BP systolic 126–153; BP diastolic 53–78; PULSE 54–104; RESP 16–20; O2SAT 94–98
[2017-02-25] MEDS: CEFUROXIME IV SCH ×2 (02:04→13:45)
[2017-02-25] MEDS: DEXTROSE 5% IV SCH ×2 (02:04→13:45)
[2017-02-25] MEDS: 0.9% Sodium Chloride 1,000 ML IV SCH ×5 (02:40→22:50)
--- NOTE | 2017-02-25 06:04 | NUR ---
Shift note Pt. care started at 1900, a/o but forgetful tonight, continues with IVF and intermittent IV ABO, pt. on bedrest unable to ambulate r/t hx. of MS, 2 RN's skin checks done, pressure ulcer protocol initiated, pt. placed on P500 SANDRA bed, Q2 hours turned, heels and elbow protection foam on, noted open area on her tailbone wound care consulting this am, noted of mucous thread in urine, chest xray done, mrsa swab sent results pending, attempted to obtain wound drain sample, wound checkedx2, no drainage throughout night, special call light within pt. reach, qhourly checks done.
[2017-02-25 06:31] LABS: BASOPHILS % (AUTO) 0.2 % (0-3); EOSINOPHILS % (AUTO) 0.7 % (0-5); MONOCYTES % (AUTO) 6.2 % (4-12); Mean Corpuscular Hemoglobin 27.9 pg (27.0-35.0); Mean Corpuscular Volume 87.9 fL (81-100); NEUTROPHILS % (AUTO) 85.3 % (40-74); Platelet Count 174 bil/L (150-400)
[2017-02-25 06:48] LABS: INR 1.44 ratio
[2017-02-25 08:27] LABS: Magnesium 2.1 mg/dL (1.6-2.6)
[2017-02-25] MEDS: Potassium Chloride 20 mEq SR Tablet PO SCH (08:30)
[2017-02-25] MEDS: Heparin 5,000 Unit/mL Inj SUBQ SCH ×2 (09:26→21:18)
[2017-02-25] MEDS: Insulin Human NPH 100 Unit/mL 3 mL Inj SUBQ SCH ×2 (09:29→21:23)
--- NOTE | 2017-02-25 10:07 | DRSVH ---
PROCEDURE: X-RAY CHEST ONE VIEW, PORTABLE ([id number]) INDICATIONS: Possible infiltrate/decreaseasedlevel of conscious TECHNIQUE: One view of the chest was acquired. COMPARISON: [facility], CR, XR CHEST 1VW, 09/20/2016, 12:53. [facility], CR , XR CHEST 1VW (PORTABLE), 01/23/2016, 15:19. FINDINGS: Surgical changes and devices: Stable positioning of left cardiac pacer. Right breast surgical clips redemonstrated.. Lungs and pleura: No pleural effusions or pneumothorax. Elevation of the right hemidiaphragm and me dial right basilar airspace opacity present. Mediastinum: Mediastinal contours appear normal. Heart size is normal. Bones and chest wall: No suspicious bony lesions. Overlying soft tissues appear unremarkable. IMPRESSION: 1. Right atelectasis versus aspiration or pneumonia. Correlate clinically. Dictated by: Vineet Price RRA Interpreted: Criss Roach MD on 02/25/2017 at 10:06 Transcribed by: JULIETA on 02/25/2017 at 10:06 Approved by: Criss Roach MD, PhD on 02/25/2017 at 16:31
--- NOTE | 2017-02-25 10:08 | PCM.PHAPRO ---
Progress Date of Service: Feb 25, 2017 Warfarin dosing Date Feb 25-Jan INR 1.12 1.44 INR change 0.32 Warf Dose 5 mg 5 mg Jeff Galeana Feb 25, 2017 10:08
--- NOTE | 2017-02-25 10:55 | NUR ---
Screened pt. for OT need. Discussed with her the home setup/arrangement, ADL routine, caregiver support. provides most needs. Live-in daughter contributes. Bath aid 3 times weekly. Pt. bedbound except for when she's up in her power wheelchair for doctor appointments. She reports general satisfaction with routine. She presented as positive in demeanor and thankful for family and support. No further OT needs identified. Physical therapy notified with this information. No charge. Ismael Manriquez, OTR/L
--- NOTE | 2017-02-25 12:42 | PCM.PNSURG ---
Subjective Date of Service: Feb 25, 2017 Date of Service: Feb 25, 2017 Visit Information: Reason for Visit [place] Date of Admission: Feb 24, 2017 at 14:38 Hospital Day #2 Subjective: pt supine during in bed, denies any LEFT flank pain, denies any nausea, denies any new complaints at this time. Postop General: No Shortness of Breath, No Chest Pain Neurological: Weakness Postop Activity: Ambulating Independently Objective Vital Sign- Last 8 Hours Date Time Temp Pulse Resp B/P Pulse Ox O2 Delivery O2 Flow Rate FiO2 02/25/17 11:27 36.9 103 16 127/72 94 Room Air 02/25/17 05:40 37.0 90 16 138/76 98 Room Air 02/25/17 05:08 93 Intake and Output- Last 8 Hour 02/25/17 Cumulative From/Thru 07:00 02/24/17 11:29 - 02/25/17 05:42 Intake Total 1420 ml 1920 ml Output Total 1550 ml 1550 ml Balance -130 ml 370 ml Intake Oral 120 ml 120 ml IV Total 1300 ml 1800 ml Output Urine Total 1050 ml 1050 ml Stool Total 500 ml 500 ml General: Alert (sleepy during exam), No Acute Distress Neck: Supple Lungs: Normal Air Movement Abdomen: Soft, Non-tender, Non-distended, Other (colostomy in place) Extremities: Distal Pulses Palpable Neuro: Grossly Neurologically Intact Catheters: Suprapubic (cloudy urine, catheter draining well) Result Diagram: 02/25/17 0615 02/25/17 0615 Lab & Micro Results: WBC 02/24/17 11.9 WBC 02/25/17 9.5 Final UA culture 02/25/17 mixed urogenital dary Diagnostics: CT KUB 02/24/17 1. Bilateral renal calcifications. 2. Less prominent appearance of calcifications within the left kidney, particularly the layering renal pelvic calcifications, as described above. There is a distal left ureteral calcification measuring 5 mm causing moderate hydronephrosis and hydroureter. 3. Unchanged appearance of Peacock catheter within the bladder and numerous bladder calcifications. 4. Unchanged cholelithiasis. 5. Poorly defined area of questionable low attenuation along the anterior aspect of the liver as described above. This could represent artifact or variability of hepatic steatosis. However, a mass within this region cannot be definitively excluded. Followup with focal ultrasound is recommended. Renal u/s 1. Severe left hydronephrosis with multiple nonobstructing calculi. 2. Right renal cyst with mural calcification. If further characterization is warranted, renal mass protocol CT may be helpful to evaluate for mural nodularity. Assessment & Plan Plan Pt is a pleasant 67YOF with PMH significant for MS, afib on coumadin, GI bleed, HTN, DM, known to our service for h/o bladder neck contractures, chronic suprapubic catheter, and nephrolithiasis. She presented to the ER today with c/ o weakness, confusion, nausea, subjective fever, poor appetite ongoing x 2 days. She denied any abdominal or flank pain, denied any vomiting, chills. CT revealed 5mm LEFT distal ureteral calculus with moderate associated hydroureteronephrosis. 1) Acute Kidney Injury- Pt admitted for IV hydration and treatment of presumed UTI with IV antibiotics. Elevated Creatinine 2.30 on admission, Baseline around 1.0, today is 1.87, will continue to monitor 2) LEFT ureteral calculus- We will continue medical management, no indication for stent placement at this time as pt is afebrile, WBC trending down, no pain. Pt should remain NPO. We will continue to monitor. Indications for stent placement include unresolved kidney injury, fever, signs of sepsis. 3) UTI- Final urine culture showed mixed urogenital dary , continue IV Cefuroxime for now, continue flomax and IV hydration 4) Leukocytosis- WBC 11.9 on admission, trending down at 9.5 today, will continue to monitor 5) Diet- Pt may resume PO diet today, please make NPO at midnight tonight VTE Prophylaxis: Sub-Q Heparin (Unfractionated) Resuscitation Status: CPR: Attempt Resuscitation Chelita Vega PA-C Feb 25, 2017 12:42 - She has a constant risk for recurrent infection despite having a suprapubic catheter changed every 2 weeks. - Patient is a small decubitus ulcer which we will culture and consult the wound care team. - Continue supportive care. - We will consult physical therapy and occupational therapy. # Atrial fibrillation - Rate appears to be controlled with pacemaker - We will continue Coumadin per pharmacy - Check daily PT/INR # Nephrolithiasis - Urology has been consulted and appreciate their input. Will follow the recommendations - Patient to be nothing by mouth after midnight in the event she may need surgery due to severe hydronephrosis on the left with left ureteral calculi as seen on ultrasound. - Continue IV hydration and cefuroxime. - Continue Flomax. # History of DVT and pulmonary embolism - Continue Coumadin per pharmacy. # History of MRSA nasal swab. - We will repeat nasal swab for MRSA. - Check decubitus ulcer, which is quite small, for culture # Decreased level of consciousness - Likely due to sepsis from the urinary tract infection - We will have speech therapy evaluate the champ. VTE Prophylaxis: Sub-Q Heparin (Unfractionated) Resuscitation Status: CPR: Attempt Resuscitation Chelita Vega PA-C Feb 25, 2017 12:42
[2017-02-25] MEDS ORDERED: fentaNYL-PF 50 mCg/mL 2 mL Inj ONE (14:00)
[2017-02-25] MEDS ORDERED: Propofol 10,000 mCg/mL 20 mL Inj ONE (14:00)
--- NOTE | 2017-02-25 16:16 | CONS ---
[address] [address] CONSULTATION REPORT PATIENT: GARY GORDON : 1950 MR#: [id number] ADMIT: 02/24/2017 JOB ID: [id number] DATE OF SERVICE: 02/25/2017 INFECTIOUS DISEASE CONSULTATION: REASON FOR CONSULTATION: Complicated urinary tract infection in a patient with advanced multiple sclerosis. HISTORY OF PRESENT ILLNESS: The patient is a 67-year-old white female, known to me from numerous prior admissions related to complications arising from her multiple sclerosis. Most recently, the patient was admitted to this facility in August when she had a complicated urinary tract infection with upper tract disease and a left-sided stone. She had a stent placed at that time, and did well. She was subsequently seen in the emergency department here about two weeks ago for what appeared to be another urinary tract infection. I was contacted by the ED physician, and we decided to try fosfomycin rather than admit the patient immediately. She did reasonably well until just a couple days ago when she developed weakness, confusion, nausea, malaise and some fever. It was also noted that her urine was malodorous. These are often the symptoms that suggest she has another complicated urinary tract infection, and for that reason, she was brought to the hospital and admitted. Imaging has shown another left-sided stone and there are plans to address this surgically tomorrow. ID consultation was requested by Dr. Leary, whom I thank for this consult, regarding antibiotic choice and management in this woman with an extraordinary history of allergies to antibiotics and other related problems. The patient was seen in her room this afternoon. She reports she is already feeling better and denies fevers, chills, sweats today. She states that she is already thinking about going home as she is feeling so much improved. She denies any ongoing pulmonary symptoms. PAST MEDICAL HISTORY: 1. Multiple sclerosis with paraplegia, neurogenic bladder and multiple decubitus ulcers. 2. History of multi-drug resistant urinary tract infections. 3. History of MRSA wound infections. 4. Recurrent aspiration pneumonia. 5. Insulin-dependent type 2 diabetes. 6. Hypothyroidism. 7. Chronic DVTs with pulmonary embolism, chronic anticoagulation. 8. History of breast cancer. 9. History of tongue cancer. 10. Paroxysmal atrial fibrillation. 11. History of GI bleeds. ALLERGIES: 1. SULFA DRUGS. 2. CEPHALOSPORINS. 3. QUINOLONES. 4. NITROFURANTOIN. 5. METRONIDAZOLE. 6. The patient tolerates carbapenems quite well and is currently tolerating cefuroxime. SOCIAL HISTORY: The patient lives in [place] with her and one daughter. She neither drinks nor smokes. FAMILY HISTORY: Negative for TB in first degree relatives. REVIEW OF SYSTEMS: Was done. The patient says she has no headache, no sore throat. No cough, shortness of breath, chest pain. She did have some nausea earlier but it has resolved. No vomiting or diarrhea. She voids through a suprapubic tube and has for many, many years. She notes that her weakness and diffuse malaise seem to be improving. Otherwise review of systems negative. PHYSICAL EXAMINATION: Reveals an afebrile woman. Temperature 36.9, pulse 87, respiratory rate 16, blood pressure 127/72. She is saturating well on room air. She appears about as she has on many prior admissions when I have seen her. Examination of the head: No trauma. Eyes without conjunctivitis. Oral cavity, no thrush or pharyngitis. Neck without appreciable abnormality, not stiff. Lungs relatively clear bilaterally. Cardiac tones: Irregular rate and rhythm without a significant murmur. Abdomen: Somewhat obese, soft and nontender. The patient has a colostomy on the left and suprapubic catheter in the midline. These appear functional and noninfected. Lower extremities showed considerable atrophy without cellulitis. She has no functional strength below the waist. No evidence of synovitis. No other notable abnormalities on physical. LABORATORIES: Include white count 9500, platelet count 174. Note that her white count was 12,000 yesterday but rapidly normalized overnight. Creatinine 1.87. Her baseline appears to be around 1. Lactic acid 1.8. ALT is 41, albumin 3.0, procalcitonin 51. Procalcitonin back in December when she was last admitted here was 0.89 so this is dramatically elevated. Urinalysis strangely without white cells at the time of this admission. When she was seen in the ED back in mid January and received the fosfomycin, she had 11-50 white cells. Hep C was previously checked, was negative. Cultures from this admission of the urine growing mixed dary. Dr. Leary has asked the lab to try and figure which is her predominant organism present there. A culture from February 08 also grew mixed dary. Culture from last August had a Morganella which was quite resistant though was sensitive to second and third generation cephalosporins. It was quite resistant to cefuroxime and it was sensitive to Cipro as well as carbapenems and Bactrim. On prior admissions, there has been Proteus in the urine as well as Pseudomonas and E. coli. Chest x-ray shows atelectasis versus infiltrate on the right. The retroperitoneal ultrasound showed severe left hydronephrosis with multiple nonobstructing stones and a right renal cyst with mural calcification. IMPRESSION: This patient once again presents with a complicated urinary tract infection. This is not strictly speaking, pyelonephritis as there is a stone and abnormal anatomy present. Complicated urinary tract infections in patients such as this who are frequently hospitalized often involve multi-drug resistant organisms. The patient was started on cefuroxime in the emergency department, and Dr. Leary, the hospitalist, has decided to continue with this antibiotic despite her history of cephalosporin allergy. It does appear that the patient is tolerating the antibiotic well though I wonder if its spectrum will be adequate given that her most recent urinary isolate was Morganella back in August which was quite resistant to cefuroxime. Nonetheless, at this point, the patient seems to be doing reasonably well, and in fact, is improved over where she was admitted. RECOMMENDATIONS: 1. I am going to contact the microbiology lab and see if they can tease out a predominant organism and do susceptibilities. 2. Will continue with the cefuroxime for the time being. 3. We await urological intervention tomorrow.
--- NOTE | 2017-02-25 17:30 | NUR ---
Wound Care Wound orders received, patient seen at bedside with nursing. 67 yo female with MS who is completely dependent on others for all adl's. Presents with colostomy and super pubic catheter. Inspection of skin reveals no pressure related skin issues at this time. Colostomy appliance was changed today using a 70mm oval moldable flat 2 piece with an eakins ring. Patient is on a p500 bed and has heel and elbow pads in place. No wound care needs at this time.
--- NOTE | 2017-02-25 17:34 | NUR ---
Evaluation completed. Please go to "Notes" then click on "Assessments and Notes" (bottom left corner of screen). Then select appropriate discipline tab on top of screen.
--- NOTE | 2017-02-25 18:17 | NUR ---
Skin Patient was seen by Alejandro, wound care nurse this am, requires no further wound care need at this time. Patient pleasant, eating and drinking well. Will place on NPO after mid night per surgical team for a possible procedure tomorrow. Turning schedule implemented. Will continue to monitor.
--- NOTE | 2017-02-25 23:28 | PCM.PNMED ---
Subjective Date of Service Feb 25, 2017 Subjective Patient appears be slightly more lucid today. She is feeling a little bit better today and has no new complaints. Exam Vital Signs Vital Sign - Last Date Time Temp Pulse Resp B/P Pulse Ox O2 Delivery O2 Flow Rate FiO2 02/25/17 21:53 37.6 54 18 126/53 94 Room Air Intake and Output 02/24/17 02/24/17 02/25/17 Cumulative From/Thru 15:00 23:00 07:00 02/24/17 11:29 - 02/25/17 05:42 Intake Total 500 ml 1420 ml 1920 ml Output Total 1550 ml 1550 ml Balance 500 ml -130 ml 370 ml Intake Oral 120 ml 120 ml IV Total 500 ml 1300 ml 1800 ml Output Urine Total 1050 ml 1050 ml Stool Total 500 ml 500 ml Exam General: Patient is in no apparent distress. She is lying comfortably supine in bed. Patient is more lucid today HEENT: Head is atraumatic and normocephalic. Eyes: Pupils are equally round and reactive to light and accommodation. Extraocular muscles are intact. Sclera are white, anicteric. Subconjunctival mucosa is pink. Ears and nose are unremarkable. Oropharynx: There is no mucosal lesions, there is no thrush, there is no pharyngitis. Dentition is poor Neck: Is supple, there are no nodes, or masses or tenderness. Chest: Is clear to auscultation and percussion. There are no rales, rhonchi, wheezes or rubs. Heart: Rate is controlled, rhythm is irregular. There is no murmur, rub or gallop. Abdomen: Good bowel sounds are present. Abdomen is obese, soft, nontender, no organomegaly or masses were appreciated. Colostomy bag is present on the left side of the abdomen as well functional. There is a suprapubic catheter. Extremities: Are symmetrical and well perfused. There is no edema, there is no cellulitis, no rash. She has a small decubitus ulcer in the sacral area which is only a few millimeters in diameter and appears to have some purulent drainage. Neurologic: Cranial nerves II through XII are intact. The patient is essentially paraplegic with no movement of the lower extremities. Her upper extremities are weak but strength is symmetrical. There is bilateral foot drop. Patient is more lucid today Psychiatric: Patients mood is calm and shows no sign of agitation. Genital: Deferred Rectal: Deferred Lab and Diagnostics Result Diagram: 02/25/1761402/25/17614 Microbiology Urine culture is nonrevealing. Dr. Marroquin and I have independently called the microbiology lab and asked them to try to isolate a predominant pathogen within the "mixed dary" Blood cultures pending.. Name: GARY GORDON Age/Sex: 67/F Attend Dr: Krishna Leary Acct: [id number] Unit: [id number] Status: ADM IN Location: [facility] 249-1 Re02/24/17 Disch: Specimen: [id number] Collected: 02/24/17 Status: COMP Req#: [id number] Received: 02/25/17 Source: [facility] Guillaume Desc : Subm Dr: Krishna Leary MD Ordered: GISELLE MRSA PCR Comments: Collected by Nurse/Unit? Y/N Y Procedure Result Verified Site Microbiology GISELLE MRSA PCR Final 02/25/17-717 MRSA BY PCR NEGATIVE REFERENCE INTERVAL NEGATIVE X-Rays, CTs and MRIs PROCEDURE: US RENAL SONOGRAM INDICATIONS: Possible Hydronephrosis TECHNIQUE: Real-time scanning was performed of the kidneys and bladder, with image documentation. COMPARISON: [facility], CT, CT KUB, 02/24/2017, 14:19. FINDINGS: Kidneys: Kidneys are normal in size. Right kidney measures 11.3 cm long; left kidney measures 15.6 cm long. Right renal cortical thickness is 1.5 cm; left renal cortical thickness is 1.2 cm. there is a 4.0 x 3.0 x 3.3 cm right renal cyst with mural calcification. This measured 3.6 x 3.0 x 3.3 cm on the study dated 01/21/16. There is severe left hydronephrosis. A cluster of punctate renal calculi are present within the central left renal collecting system. The nonobstructing calcifications are also present within the left lower pole. The proximal left ureter is markedly dilated. Bladder: The bladder is decompressed and a Peacock catheter is present. Miscellaneous: No free pelvic fluid. IMPRESSION: 1. Severe left hydronephrosis with multiple nonobstructing calculi. 2. Right renal cyst with mural calcification. If further characterization is warranted, renal mass protocol CT may be helpful to evaluate for mural nodularity. Dictated by: Carmen Matias M.D. on 02/24/2017 at 18:04 Approved by: Carmen Matias M.D. on 02/24/2017 at 18:09 PROCEDURE: CT KUB ([id number]) INDICATIONS: leukocytosis, h/o stones, UTI TECHNIQUE: Noncontrast 5 mm thick sections acquired from the diaphragms to the symphysis. 5 mm thick coronal and sagittal reformats were then performed. For radiation dose reduction, the following was used: automated exposure control, adjustment of mA and/or kV according to patient size. COMPARISON: [facility], CT, CT KUB, 09/17/2016, 13:17. FINDINGS: Image quality: Excellent. Lung bases: Lung bases are clear. Heart size is normal. Urinary system: Both kidneys are mildly atrophic. The right kidney demonstrates an unchanged exophytic cyst with partial rim calcification. There are several punctate nonobstructing calcifications within the inferior pole. There are unchanged. The left kidney demonstrates approximately 10-12 calcifications throughout the kidney the largest in the posterior aspect of the midpole measuring approximately 10 mm Hounsfield units 376. There are dependent layering calcifications within the renal pelvis, a less prominent when compared to prior exam. There is a distal right ureteral calculus measuring 5 mm, Hounsfield units to 72. There is moderate hydronephrosis and hydroureter on the left. A suprapubic Peacock catheter is present. Once again, there are multiple calcifications within the bladder lumen. Other solid organs: Liver and spleen are normal in size. There is poorly defined questionable low attenuation along the anterior left and right hepatic lobes seen on series 2 image 22. The liver overall demonstrates steatosis. Gallbladder demonstrate a large luminal calcification without wall thickening. No interval change.. Pancreas is normal in contours. No adrenal nodules. Peritoneum and bowel: Unenhanced bowel loops demonstrate normal wall thickness and caliber. No free fluid or air. Nodes and vessels: No retroperitoneal or mesenteric adenopathy by size criteria. Aorta and inferior vena cava are normal in caliber. Abdominal wall: No ventral hernias. Pelvis: No free pelvic fluid. No inguinal hernias or adenopathy. Bones: No suspicious bony lesions. No vertebral body compression fractures. IMPRESSION: 1. Bilateral renal calcifications. 2. Less prominent appearance of calcifications within the left kidney, particularly the layering renal pelvic calcifications, as described above. There is a distal left ureteral calcification measuring 5 mm causing moderate hydronephrosis and hydroureter. 3. Unchanged appearance of Peacock catheter within the bladder and numerous bladder calcifications. 4. Unchanged cholelithiasis. 5. Poorly defined area of questionable low attenuation along the anterior aspect of the liver as described above. This could represent artifact or variability of hepatic steatosis. However, a mass within this region cannot be definitively excluded. Followup with focal ultrasound is recommended. Dictated by: Melody Rea M.D. on 02/24/2017 at 14:28 Approved by: Melody Rea M.D. on 02/24/2017 at 14:35 Assessment & Plan The patient is a pleasant 67-year-old white female with history of multiple sclerosis, atrial fibrillation on Coumadin, hypertension, and insulin-dependent diabetes mellitus who presented to the emergency room department at [facility] brought in in a private vehicle by her complaining of generalized weakness onset 2 days ago. The reason she decided to come in when she did this because she had "foul-smelling urine" according to her . Patient also complained of generalized confusion, nausea, subjective fever, decreased appetite the patient denied abdominal pain, vomiting, chills, flank pain. Patient has had a history of recurrent urinary tract infections previously with very similar symptoms. The patient was evaluated in the emergency room by Dr. Curt Galdaemz who felt that the patient had an acute kidney injury and probable urinary tract infection. Incidentally noted that there was a left ureteral stone. Urology was consulted for this after consultation with possible cervicitis or cefuroxime was given in the emergency room. Patient has multiple drug allergies. The patient tolerated the cefuroxime very well. The patient was admitted to the hospital service for further evaluation and treatment. # Urinary tract infection with sepsis presenting with confusion, nausea and subjective fever and decreased appetite. - Patient has numerous drug allergies (see list) we have decided to treat the patient was cefuroxime which she has tolerated in the past. - Continue cefuroxime awaiting urine culture results. - Patient tolerated her first dose of cefuroxime quite well. - IV hydration - I have consulted Dr. Akbar Holden of infectious disease referring my patient and greatly appreciate his consultation and input. I agree with continuing cefuroxime for now. Dr. Marroquin and I have both independently called microbiology lab and asked them to try to isolate a predominant pathogen from the "mixed dary". # Acute encephalopathy - History secondary to the urinary tract infection. - Continue antibiotics. - Continue hydration # Multiple sclerosis - Patient is bedridden with suprapubic catheter and is unable to move her lower extremities. - She has a constant risk for recurrent infection despite having a suprapubic catheter changed every 2 weeks. - Patient was thought to have a small decubitus ulcer. However, the wound care team sees no evidence of any decubiti. - Continue supportive care. - We will consult physical therapy and occupational therapy. # Atrial fibrillation - Rate appears to be controlled with pacemaker - We will continue Coumadin per pharmacy - Check daily PT/INR # Nephrolithiasis - Urology has been consulted and appreciate their input. Will follow the recommendations - Patient to be nothing by mouth after midnight in the event she may need surgery due to severe hydronephrosis on the left with left ureteral calculi as seen on ultrasound. - Continue IV hydration and cefuroxime. - Continue Flomax. # History of DVT and pulmonary embolism - Continue Coumadin per pharmacy. # History of MRSA nasal swab. - We will repeat nasal swab for MRSA. - Check decubitus ulcer, which is quite small, for culture # Decreased level of consciousness - Likely due to sepsis from the urinary tract infection - We will have speech therapy evaluate the patient. Disposition: Patient will likely be here at least another 48 hours for the evaluation treatment the above problem Pain Evaluation: Adequate Pain Control GI Prophylaxis: Not indicated VTE Prophylaxis: Sub-Q Heparin (Unfractionated) Resuscitation Status: CPR: Attempt Resuscitation Krishna Leary MD Feb 25, 2017 23:28
[2017-02-26] VITALS (10 sets, daily range): BP systolic 111–153; BP diastolic 44–79; PULSE 67–95; RESP 12–18; O2SAT 95–98
[2017-02-26] MEDS: 0.9% Sodium Chloride 1,000 ML IV SCH ×3 (01:19→12:35)
[2017-02-26] MEDS: CEFUROXIME IV SCH ×2 (01:19→13:31)
[2017-02-26] MEDS: DEXTROSE 5% IV SCH ×2 (01:19→13:31)
--- NOTE | 2017-02-26 02:34 | NUR ---
Temperature/Skin pt T at 2200 was 37.6. Double checked with another thermometer showed 37.9. Administered PO PRN 975 mg Tylenol, but it was ineffective (T. 37.8). after Applied cold compress,T reading trending down to 37.5 and 37.3. pt has been turning Q2 hrs, cleaned and applied skin protection. heals and elbow protection foam in place. Obtained sacral drainage sample per order. pt A&O X3, but forgetful at times. soft touch call light within reach. will continue to monitor. Addendum: 02/26/17 at 0701 by OCTAVIO SHERMAN RN T. this morning is 37.1. Denies pain. Urine out put 550 ml. colostomy output was also 550ml.
[2017-02-26 06:46] LABS: BASOPHILS % (AUTO) 0.2 % (0-3); EOSINOPHILS % (AUTO) 1.6 % (0-5); MONOCYTES % (AUTO) 8.2 % (4-12); Mean Corpuscular Hemoglobin 28.2 pg (27.0-35.0); Mean Corpuscular Volume 87.6 fL (81-100); NEUTROPHILS % (AUTO) 78.6 % (40-74); Platelet Count 161 bil/L (150-400)
[2017-02-26 07:02] LABS: INR 2.64 ratio
[2017-02-26 07:17] LABS: Magnesium 1.8 mg/dL (1.6-2.6)
[2017-02-26] MEDS: Potassium Chloride 20 mEq SR Tablet PO SCH (08:30)
--- NOTE | 2017-02-26 08:40 | PCM.PNSURG ---
Subjective Date of Service: Feb 26, 2017 Date of Service: Feb 26, 2017 Visit Information: Reason for Visit [place] Surgery/Surgery Date Post-Op Day # Date of Admission: Feb 24, 2017 at 14:38 Hospital Day # 3 Subjective: Ms Lutz states she is feeling fine--when questioned, she states she doesn't feel any weaker or ill. Postop General: No Complaints Objective Vital Sign- Last 8 Hours Date Time Temp Pulse Resp B/P Pulse Ox O2 Delivery O2 Flow Rate FiO2 02/26/17 08:00 95 02/26/17 06:04 37.1 93 16 112/63 95 Room Air 02/26/17 04:55 88 02/26/17 02:26 37.3 67 18 132/64 95 Room Air 02/26/17 00:45 37.5 Intake and Output- Last 8 Hour 02/26/17 Cumulative From/Thru 06:59 02/24/17 11:29 - 02/26/17 06:38 Intake Total 1277 ml 4880 ml Output Total 1100 ml 3600 ml Balance 177 ml 1280 ml Intake Oral 1177 ml 1997 ml IV Total 100 ml 2883 ml Output Urine Total 550 ml 2200 ml Stool Total 550 ml 1400 ml General: Alert (appearing in her normal, debilitated state) Abdomen: Benign, Soft Extremities: Warm, Other (no edema) Neuro: Cranial Nerves 2-12 nl Result Diagram: 02/26/1741 02/26/17 0641 Assessment & Plan Impression LEFT distal ureteral stone Problems: Plan We reviewed her CT findings - Bladder stones - LEFT distal ureteral stone We reviewed her clinical course - Her Cr has improved, but at HD# 3, her Cr is 1.7, whereas she has normal baseline Cr We discussed her history of developing sepsis secondary to ureteral stones Options were reviewed - Surveillance: risks are continued renal insufficiency; and while she has avoided signs of sepsis at present, this is a possible risk - Cysto and stent: we discussed stent, nature of, which she understands well, having had this before. We reviewed risks. She understands well that the stone will not be treated today in light of possible UTI. She understands definitive mgt would come at a later date. I have called the OR; time is pending for cysto and LEFT ureteral stent Very much appreciate hospitalist team managing her care. She has been NPO at [place]. Anticipate she may resume diet after her procedure this afternoon. VTE Prophylaxis: Sub-Q Heparin (Unfractionated) Resuscitation Status: CPR: Attempt Resuscitation Leigha Arora MD Feb 26, 2017 08:40
[2017-02-26] MEDS ORDERED: Ertapenem Inj 1,000 MG in 0.9% Sodium Chloride 50 ML IV ONE (09:25)
[2017-02-26] MEDS: Insulin Human NPH 100 Unit/mL 3 mL Inj SUBQ SCH ×2 (09:45→20:43)
[2017-02-26] MEDS: Heparin 5,000 Unit/mL Inj SUBQ SCH (09:46)
--- NOTE | 2017-02-26 10:11 | NUR ---
KEVIN KEVIN signed
--- NOTE | 2017-02-26 10:19 | PROG NOTE ---
[address] [address] PROGRESS NOTE PATIENT: GARY GORDON : 1950 MR#: [id number] ADMIT: 02/24/2017 JOB ID: [id number] DATE: 02/26/2017 INFECTIOUS DISEASE FOLLOW UP NOTE: REASON FOR FOLLOWUP: Complicated urinary tract infection in a multiple sclerosis patient with a suprapubic tube. INTERVAL HISTORY: The patient reports she is feeling fine. No fevers, chills, shortness of breath or abdominal pain. No skin rash noted. This case was discussed in detail with her and daughter who were present in the room this morning. PHYSICAL EXAMINATION: Revealed an afebrile woman. Temperature 37.1, pulse 95, respiratory rate 16, blood pressure 112/63. She is saturating well on room air. In no acute distress. Oral cavity negative. Lungs clear though with poor excursion. Abdomen essentially negative. Cardiac tones without new murmur. LABORATORIES: Include a white count 8700, platelet count 161. Creatinine 1.7 which is down a bit from yesterday's 1.87 and two days ago it was 2.3 so creatinine is improving. Procalcitonin is still very high. It was 51.4 when she came in, now 18.7. MRSA screen negative. Blood cultures negative. The urine is growing multiple organisms. I have asked the lab to do some additional evaluation. I discussed this in detail with the micro shelving supervisor today who believes there is probably either a Morganella or Providencia in addition to a Proteus and then several other organisms. 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 IMPRESSION: This is an unfortunate woman with advanced multiple sclerosis who has hydronephrosis due to stones and a complicated urinary tract infection. We are not certain of the organism as there are many organisms present. We are not certain which ones are causing the problem or their susceptibility pattern. She has been started on cefuroxime which she is tolerating surprisingly well and her fever and procalcitonin are improving so I think we are having a good impact. Given the fact that she is going to have surgery later today, however, I think it is reasonable to give a preop dose of ertapenem just as insurance against the possible development of a bacteremia secondary to a multi-drug resistant organism. RECOMMENDATIONS: 1. Continue with cefuroxime until we get back the susceptibilities at least. 2. A single dose of ertapenem has been ordered for 1 hour before surgery. 3. ID will continue to follow this patient with you. 4. If the patient is doing very well postop and her predominant urinary tract pathogens are due to cefuroxime, this could conceivably be switched to an oral therapy and she could be discharged. If there is ambiguity about the resistance pattern or it appears she has a multi-drug resistant organism, it may be reasonable to switch her therapy to ertapenem and watch her bit longer in the hospital.
--- NOTE | 2017-02-26 13:40 | PCM.HPANE ---
Patient Data Surgeon Admitting Provider:Krishna Leary MD Attending Provider:Krishna Leary MD Primary Care Physician:Tali Menjivar MD Other Provider: Reason for Visit CALIXTO Ht/WT & BMI Height (Feet): 5 Height (Inches): 5 Weight (Kilograms): 78.300 Body Mass Index .00 Allergies Coded Allergies: metronidazole (Verified Allergy, Severe, N/V, 02/24/17) Cephalosporins (Verified Allergy, Unknown, UNKNOWN (IS TAKING ORAL CEFTIN) , 02/24/17) Quinolones (Verified Allergy, Unknown, UNKNOWN Reaction is to Cipro, ) ciprofloxacin (Verified Allergy, Unknown, 02/24/17) levofloxacin (Verified Allergy, Unknown, UNKNOWN, 02/24/17) metoclopramide HCl (Verified Allergy, Unknown, UNKNOWN, 02/24/17) nitrofurantoin (Verified Allergy, Unknown, UNKNOWN, 02/24/17) scopolamine (Verified Allergy, Unknown, UNKNOWN, 02/24/17) trimethoprim (Verified Allergy, Unknown, TONGUE SWELLING, 02/24/17) Vwdhttd-Svp-Tby Reductase Inhibitor (Verified Adverse Reaction, Severe, ELEVATED LIVER ENZYMES, 02/24/17) Sulfa (Sulfonamide Antibiotics) (Verified Adverse Reaction, Severe, NUMB MOUTH, 02/24/17) Uncoded Allergies: HOSPITAL LINENS (Allergy, Unknown, UNKNOWN, 01/10/14) PLASTIC TAPE (Adverse Reaction, Severe, SKIN IRRITATION, BLISTERS, 01/10/14) Past Anesthesia History Anesthesia History: Positive for:: Abnormal Airway (pt describes awake intubation, last few anesthetics at [facility] c/ glidescope), Anesthesia Reactions ( DIFFICULT INTUBATIONS), Difficult Intubation, Denies:: Malignant Hyperthermia Diabetes History Hx Diabetes?: Yes Type of Diabetes: Type II Glycemic Control: Insulin Dependent Current Bedside Blood Glucose: 125 MRSA MRSA: Yes Medications Blood Thinner: Coumadin Reported Medications Tamsulosin (Flomax)0.4 Mg Capsule0.4 Mg PO HS 02/24/17 NPH, Human Insulin Isophane (HUMulin-N U100 Insulin Vial)100 Unit/1 Ml Vial45 Unit SUBQ QPM 02/24/17 NPH, Human Insulin Isophane (HUMulin-N U100 Insulin Vial)100 Unit/1 Ml Vial35 Unit SUBQ QAM 02/24/17 Warfarin Sodium 4 Mg Tablet4 Mg PO DAILY 02/24/17 Potassium Chloride 20 Meq Tab.er.prt20 Meq PO DAILY TAKE WITH FOOD 09/17/16 Nystatin 15 Gm Powder1 Applic TP TID PRN rash 09/17/16 Levothyroxine 112 Mcg Qwniqk366 Mcg PO DAILY For Thyroid Replacement 09/17/16 Baclofen 20 Mg Nnlmch60 Mg PO BID 09/07/15 Magnesium Oxide 400 Mg Icgstm957 Mg PO DAILY 10/19/14 Insulin Lispro (HumaLOG U100 Insulin Pen)100 Unit/1 Ml Insuln.pen5-10 Unit SUBQ ACHS PRN hyperglycemia sliding scale insulin 08/22/14 Niacin 500 Mg Capsule.er500 Mg PO BID 08/22/14 Multivits-Min/FA/Lycopene/Lut (Centrum Silver Tablet)1 Each Tablet1 Each PO DAILY 03/16/14 Discontinued Reported Medications Mupirocin 2 % Oin.pf.app0.25 Gm TP BID 09/17/16 Warfarin Sodium 3 Mg Tablet0.5-2 Tab PO DAILY 09/07/15 Insulin Glargine (Lantus U100 Solostar Insulin Pen)100 Unit/1 Ml Insuln.pen40 Unit SUBQ QPM 09/06/15 Insulin Glargine (Lantus U100 Solostar Insulin Pen)100 Unit/1 Ml Insuln.pen30 Unit SUBQ QAM 09/06/15 Discontinued Scripts Meropenem 1 Gm Vial1 Gm IV BID #20 VIAL Prov:Gary Ji MD 09/20/16 Vancomycin 125 Mg Slyhslt994 Mg PO Q12 #18 CAPSULE Prov:Gary Ji MD 09/20/16 History History of ENT Problems?: Yes HEENT History: Positive for:: Abnormal Airway (pt describes awake intubation, last few anesthetics at [facility] c/ glidescope) Difficult Intubation Denies:: Cataracts Dysphagia (hx aspiration pneumonia) Glaucoma Hearing Problem Sinus Problem TMJ Other HEENT Pertinent History: hx mouth ca Hx of Heart Problems?: Yes Cardiovascular History: Positive for:: Atrial Fibrillation (SVT 2002) Cardiac Surgery (S/P PACEMAKER 12/2015) Edema Hypertension (HYPERLIPIDEMIA) 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) Pacemaker (placed 12/2015) Thrombophlebitis (1994 DVT, HX PE W/ IVC FILTER) Denies:: Chest Pain Congestive Heart Failure Heart Murmur (ECHO 12/2015) Hx of Respiratory Problem?: Yes Respiratory History: Positive for:: Dyspnea (PARK) Pneumonia (hx aspiration pneumonia) Pulmonary Embolism (Hx of S/P BROOK FILTER) Denies:: Asthma COPD Chest Surgery Emphysema Hemoptysis Tuberculosis Use of C-PAP Machine (SNORES) Hx Neurologic Problems?: Yes Neurological History: Positive for:: Multiple Sclerosis (unable to use legs, wheelchair bound) Denies:: Alzheimer's Disease CVA Dementia Dizziness Headaches Parkinson's Disease Seizures Hx of GI Problems?: Yes Gastrointestinal History: Positive for:: Heartburn Denies:: Diverticulitis Gastroesphageal Reflux Gastrointestinal Bleeding Hepatitis Hiatal Hernia Rectal Bleeding Hx of Problems?: Yes Genitourinary History: Positive for:: Kidney Stones (LT KIDNEY STONE=CURRENT PROBLEM S/P CYSTO,LT STENT 02/12/16) Urinary Tract Infection (Chronic condition. Hx of urosepsis) Denies:: HX of Hemodialysis HX of Peritoneal Dialysis: No Female Hx: Positive for:: Problems with Breasts? (S/P RT BREAST BX, MASTECTOMY FOR CA) Denies:: Currently Endometriosis Pelvic Inflammatory Skin History: Positive for:: Pressure Ulcers (heels,buttocks,sacrum, wound clinic currently) Denies:: History Skin Disorders? Hx Musculoskeletal Problems?: Yes Musculoskeletal History: Denies:: Back Injury Joint Replacement Musculoskeletal Trauma Hx of Psycho/Social Problems?: No Psycho Social History: Denies:: Anxiety Bipolar Disorder Hx Depression Suicide Attempt Hx Surgeries?: Yes (colostomy placement, mastectomy, suprapubic cath,CYSTO/ STENT,IVC, Pacemaker) Hx Any Other Health Problems?: Yes Other History: Positive for:: Cancer (mouth ca, breast ca) Hospitalization (UTI, Sepsis) Thyroid Disease Denies:: Endocrine Disease History Blood Transfusions: Positive for:: Blood Transfusions Denies:: Accept Blood Products? Blood Transfuse Reaction Hx Diabetes: YesBedside Blood Glucose: 125 Hx Alcohol Use: Yes (occasional)Hx Substance Use: No Smoking Status: Never Smoker Have You Smoked inLast 12 mo: No Stop/Bang Treated for Sleep Apnea?: No Do You Have a CPAP Machine?: No S-Snoring: Do You Snore Loudly: No T-Tired: feel tired, fatigued: Yes O-Obsered: Observed not breath: No P-Blood Pressure: treated: No B- Body Mass Index > 35 kg/m2: No A- Age over 50: Yes N- Neck Large Circumference: Yes G- Gender Male: No TK Total Score: 2 TK Risk Assessment: Low Risk, <3 Yes Risk Assessment Category Category 1A: Patient has history of documented sleep apnea, and HAS NOT received any narcotic, sedative or anesthesia administration during this stay. Category 1B: Patient has history of documented sleep apnea, and HAS received any narcotic , sedative or anesthesia administration during this stay Category 2: Patient has SUSPECTED Obstructive Sleep Apnea, and HAS received any narcotic , sedative or anesthesia administration during this stay. Category 3: Patient has SUSPECTED Obstructive Sleep Apnea and HAS NOT received narcotic, sedative or anesthesia administration during this stay. Category 4: Outpatient in Procedural Areas with known sleep apnea or who screen positive for High Risk via the STOP/BANG questionnaire. Exam Exam Vital Signs Vital Signs Date Time Temp Pulse Resp B/P Pulse Ox O2 Delivery O2 Flow Rate FiO2 02/26/17 10:00 36.6 90 18 130/70 98 Room Air 02/26/17 08:00 95 02/26/17 06:04 37.1 93 16 112/63 95 Room Air General Appearance: Alert, Oriented X3, Cooperative, No Acute Distress HEENT/AIRWAY: MP 3, Neck Movement Lungs: Clear to Auscultation, Normal Air Movement Heart: Exam Unremarkable, Regular Rate/Rhythm, No Murmurs/Rubs/Gallops Meds/Labs/Diagnostics Admission Meds Current Medications Warfarin Sodium (Coumadin) 5 mg OT ONCE PO Last administered on 02/25/17t 16: 59; Start 02/25/17 at 17:00; Stop 02/25/17 at 17:01; Status DC Bedside Blood Glucose: 125 Labs Test 02/24/17 12:14 02/24/17 12:15 02/24/17 12:40 02/24/17 13:13 Urine Color Straw (YELLOW) Urine Appearance Cloudy (CLEAR,HAZY) Urine pH 8.5 (5.0-8.0) Urine Specific Dunbar 1.010 (1.003-1.035) Urine Protein 100mg/dL (NEG,TRACE) Urine Glucose (UA) Negativemg/dL (NEGATIVE) Urine Ketones Tracemg/dL (NEGATIVE) Urine Occult Blood Moderate (NEGATIVE) Urine Nitrite Positive (NEGATIVE) Urine Bilirubin Negative (NEGATIVE) Urine Urobilinogen Normalmg/dL (NORMAL) Urine Leukocyte Esterase Large (NEGATIVE) Urine RBC 3-10/hpf (0-2) Urine WBC 0-5/hpf (0-5) Urine Epithelial Cells Occasional/hpf (NONE-MOD) Urine Crystals Triple phosphate Urine Bacteria Many/hpf (NONE-FEW) Urine Hyaline Casts None/lpf (NONE) Urine Granular Casts None seen (NONE SEEN) Urine Waxy Casts None seen (NONE SEEN) Urine Red Blood Cell Casts None seen (NONE SEEN) Urine White Blood Cell Casts None seen (NONE SEEN) Urine Mucus None seen (None Seen) Urine Trichomonas None seen (NONE SEEN) Urine Yeast None (NONE SEEN) Urinalysis Comment None Urine Culture Reflexed Indicated Hold Urine Received (Received) Lactic Acid Level 1.8mmol/L (0.4-2.0) Hold Grider Top Tube Received (Received) Ketones Negative (Negative) Hold Purple Top Tube Received (Received) Hold Blue Top Tube Received (Received) Hold [place] Top Tube Received (Received) Test 02/25/17 06:15 02/26/17 06:41 Thyroid Stimulating Hormone (TSH) 1.140uIU/mL (0.450-4.500) White Blood Count 8.7th/mm3 (3.8-10.1) Red Blood Count 3.55mil/mm3 (3.90-5.20) Hemoglobin 10.0g/dL (12.0-15.6) Hematocrit 31.1% (35.0-46.0) Mean Corpuscular Volume 87.6fL (81-100) Mean Corpuscular Hemoglobin 28.2pg (27.0-35.0) Mean Corpuscular Hemoglobin Concent 32.2% (32.0-37.0) Red Cell Distribution Width 15.8% (12.3-15.4) Platelet Count 161bil/L (150-400) Neutrophils (%) (Auto) 78.6% (40-74) Lymphocytes (%) (Auto) 11.1% (14-46) Monocytes (%) (Auto) 8.2% (4-12) Eosinophils (%) (Auto) 1.6% (0-5) Basophils (%) (Auto) 0.2% (0-3) Prothrombin Time 28.8sec (8.1-12.5) Prothromb Time International Ratio 2.64ratio Sodium Level 135mEq/L (134-144) Potassium Level 4.0mEq/L (3.5-5.2) Chloride Level 106mEq/L (97-108) Carbon Dioxide Level 15mmol/L (18-29) Blood Urea Nitrogen 30mg/dL (8-27) Creatinine 1.70mg/dL (0.57-1.00) Estimat Glomerular Filtration Rate 43mL/min (>59) Glucose Level 140mg/dL (60-99) Calcium Level 9.0mg/dL (8.5-10.1) Magnesium Level 1.8mg/dL (1.6-2.6) Total Bilirubin 0.4mg/dL (0.0-1.2) Aspartate Amino Transf (AST/SGOT) 99U/L (0-50) Alanine Aminotransferase (ALT/SGPT) 111U/L (0-32) Alkaline Phosphatase 232U/L (25-165) Total Protein 5.5g/dL (6.4-8.4) Albumin 2.9g/dL (3.4-5.0) Procalcitonin 18.66ng/mL (0.00-0.08) Plan Impression Patient chart reviewed, patient interviewed and anesthestic plan with risks, benefits, and alternatives discussed, and informed consent obtained. NPO Status: 03/03 1900 ASA Physical Status: ASA3 Severe Disease Anesthetic Plan: MAC Bene/Risks/Altern/Consents: Yes HP Complete Prior to Induction: Yes Clint Li MD Feb 26, 2017 13:40
--- NOTE | 2017-02-26 14:26 | NUR ---
[facility] Patient transferred to OR for left stent placement. Report given to Jovita. Pre op Ertapenem to start right after Cefuroxime infusion. OR staff aware to run antibiotic. Thank you. Patient's ring and bracelet given to .
[2017-02-26] MEDS ORDERED: Lactated Ringer's 1,000 ML IV ONE (14:55)
--- NOTE | 2017-02-26 15:00 | PCM.PHAPRO ---
Progress Date of Service: Feb 26, 2017 Warfarin management per pharmacy Indication: hx of DVT/PE per previous Rx records INR goal: 2-3 Home dose: 4 mg daily per med rec; previous Rx records indicate 4 mg two days per week and 2 mg on all other days of the week. Date Feb 25-Feb 26-Jan INR 1.12 1.44 2.64 INR change 0.32 1.2 Warf Dose 5 mg 5 mg XXXXX Pertinent info: - Anticoagulated with heparin 5000 u Q12H -- paged Dr Leary and this has been discontinued. - UTI treated with cefuroxime - Per RN, patient states she has not missed any doses (usually prepared by who is not present). Previous records indicate questionable compliance. - On previous admit, patient was therapeutically anticoagulated with ~3 mg daily. INR is therapeutic. However, given that the uptrend has been aggressive over the last 2 days (patient received 2 bolus doses), will hold dose tonight. Dr. Leary agrees with this plan as patient is to receive a stent. Heparin has been discontinued. Pharmacy to continue to monitor and dose warfarin daily. Thank you, Kasandra Aguayo Pharmacist Kasandra Aguayo Feb 26, 2017 15:00
[2017-02-26] MEDS ORDERED: Iopamidol-300 50 mL Inj IV ONE (15:23)
[2017-02-26] MEDS ORDERED: Lactated Ringer's 500 ML IV PRN (15:42)
[2017-02-26] MEDS ORDERED: Lactated Ringer's 1,000 ML IV SCH (15:42)
[2017-02-26] MEDS ORDERED: fentaNYL-PF 50 mCg/mL 2 mL Inj IVPUSH PRN (15:45)
[2017-02-26] MEDS ORDERED: Ondansetron 2 mg/mL 2 mL Inj IVPUSH PRN (15:45)
[2017-02-26] MEDS ORDERED: HYDROmorphone 1 mg/mL Inj IVPUSH PRN (15:45)
[2017-02-26] MEDS ORDERED: EPHEDrine Sulfate 50 mg/mL Inj IVPUSH PRN (15:45)
[2017-02-26] MEDS ORDERED: Atropine 0.4 mg/mL Inj IVPUSH PRN (15:45)
[2017-02-26] MEDS ORDERED: Dexamethasone 4 mg/mL Inj IVPUSH PRN (15:45)
[2017-02-26] MEDS ORDERED: Labetalol 5 mg/mL 4 mL Inj IV PRN (15:45)
[2017-02-26] MEDS ORDERED: Phenylephrine 10,000 mCg/mL Inj IVPUSH PRN (15:45)
--- NOTE | 2017-02-26 16:13 | PCM.ANEP1 ---
Post Anesthesia Phase 1 PACU Phase 1 Assessment Date of Service: Feb 26, 2017 Vital Signs Vital Signs Date Time Temp Pulse Resp B/P Pulse Ox O2 Delivery O2 Flow Rate FiO2 02/26/17 10:00 36.6 90 18 130/70 98 Room Air Anesthetic Administered: MAC Level of Alertness: Awake, talking CHRISTIAN's with Equal Strength: No Pain: No Nausea or Vomiting: No Oxygen Delivery: Simple Mask Lungs: Clear to Auscultation, Normal Air Movement Dermatome Level: T4 (Nipple Line) Summary Patient has severe paraplegia. Clint Li MD Feb 26, 2017 16:13
--- NOTE | 2017-02-26 16:14 | PCM.ANEP2 ---
Post Anesthesia Evaluation ASA/CMS Post Anesthesia VS in Patient's Normal Range?: Yes Resp Stable; Airway Patent?: Yes CV Function & Hydration Stable: Yes Mental Status Recovered?: Yes Pain control Satisfactory?: Yes N/V Control Satisfactory?: Yes Clint Li MD Feb 26, 2017 16:14
--- NOTE | 2017-02-26 16:41 | DRSVH ---
PROCEDURE: X-RAY RETROGRADE UROGRAPHY INDICATIONS: CYSTOSCOPY, LEFT STENT PLACEMENT TECHNIQUE: 2 intra-operative images acquired by the Urology service. COMPARISON: [facility], CT, CT KUB, 02/24/2017, 14:19. FINDINGS: Exam limited to to submitted images. Within these limits IVC filter is present. There is mild dilatation of the left renal collecting system and multiple intraluminal filling defects of sherry radha sizes. Ureteral stent was placed. IMPRESSION: 1. Mild left hydronephrosis and multiple intraluminal filling defects seen within the left renal kong ecting system. Correlate with real-time examination. 2. Placement of left ureteral stent. Dictated by: Vineet NAVARRO Interpreted: Criss Roach MD on 02/26/2017 at 16:24 Transcribed by: JULIETA on 02/26/2017 at 16:25 Approved by: Criss Roach MD, PhD on 02/26/2017 at 16:39
--- NOTE | 2017-02-26 17:00 | NUR ---
[facility] [place] Patient back to [facility], S/P left Urethral stent placement, with IVF patent and infusing well. Denies any pain at this time. Resume diet per Dr. Arora. patient made comfortable in bed, will continue to monitor.
--- NOTE | 2017-02-26 17:00 | NUR ---
Social Work-initial assessment: Data & Assessment: See initial assessment. Pt is a 67 y/o female who was admitted on 02/24/17 for CALIXTO per H&P. Pt's insurance is [employer] and PCP is Tlai Menjivar MD. EMR Reviewed. Pt's readmission score is 4-high risk. SW met with patient to discuss discharge planning, initial assessment complete and SW role explained. Pt is alert and oriented x3. Pt resides at home with spouse in a single level home with one step to enter. Pt uses a electronic WC at baseline does not drive. Pt has HH with [facility] and no SNF history. Patient plans to resume HH with [facility] when discharged for Nurse, bath aide, PT and OT.. [facility] will be given access to the patient's chart. patient has 24-hour family care. Pt does not have a completed DPOA/ advanced directive and is not interested in information. Pt has no prison care or VA benefits. Pt's family have been assisting her at home. Pt's family to provide transport home at discharge. SW provided phone number and plan on white board in room. SW will continue to follow. Plan:Pt to likely discharge home with resume [facility]. Pt's family is supportive. SW will continue to follow. Darci Townsend LMSW, FREDDY Addendum: 02/26/17 at 1708 by DARCI TOWNSEND SS Amended: Links added.
--- NOTE | 2017-02-26 19:07 | OP ---
[address] [address] OPERATIVE REPORT PATIENT: LEIGHA GORDON : 1950 MR#: [id number] ADMIT: 02/24/2017 JOB ID: [id number] DATE OF SURGERY: 02/26/2017 PREOPERATIVE DIAGNOSIS(ES): 1. Left ureteral stone. 2. Bladder stones. POSTOPERATIVE DIAGNOSIS(ES): 1. Left ureteral stone. 2. Bladder stones. PROCEDURE PERFORMED: 1. Cystoscopy. 2. Cystolithotomy. 3. Left retrograde pyelogram. 4. Left ureteral stent placement. (Modifier 22 is being requested, as this procedure took well over 100% longer than the standard time for this case given the patient's limb contractures due to history of MS as well as a bladder augmentation and history of bladder neck obliteration and bladder augmentation. Her bladder was quite dysmorphic creating extreme difficulty for this procedure.). SURGEON: Leigha Arora MD CORE SHAPER SIDES: None. FINDINGS: 1. Bladder neck contracture. 2. Diffuse bullous edema within the bladder, especially over the left ureteral orifice. 3. Multiple bladder stones. 4. Bladder morphology consistent with bladder augmentation. ANESTHESIA: Monitored anesthesia care. ESTIMATED BLOOD LOSS: Less than 2 mL. DRAINS: A 6 x 22 left double-J ureteral stent. SPECIMENS: None. COMPLICATIONS: None. CONDITION: Stable. INDICATION FOR PROCEDURE: The patient is a 67-year-old woman with a history of MS. She has had multiple episodes of urinary tract stones, as well as prior history of obstructing ureteral stone in the setting of sepsis. She was hospitalized for possible urinary tract infection, as well as this left ureteral stone. She had been monitored over the past few days from her admission on February 24, 2017 and had received intravenous hydration and intravenous antibiotics. Her creatinine did improve from 2.3 on the date of admission to 1.87 yesterday and then to 1.7 today. However, considering her normal baseline and her history of septic stone, as well as multiple medical problems, it was discussed with her cystoscopy and left stent placement. DESCRIPTION OF PROCEDURE: After informed consent was obtained, the patient was taken to the operating room. Monitored anesthesia care was smoothly induced. She was placed in a modified lithotomy position given the patient's severe contractures. All pressure points were identified and appropriately padded. Her genitals were then prepped and draped in usual sterile fashion. Given her history of bladder neck obliteration and history of successful cystoscopy November 2015 with this provider, it was attempted to place a 17-Brazilian sheath within the urethra. It was advanced. Upon approaching the bladder neck, there was seen a contracture there with a thin veil of tissue that was easily bypassed with the cystoscope. Upon entry into the bladder, the bladder was surveyed. It was consistent with a history of bladder augmentation. There was quite a bit of bullous edema throughout the bladder. There were multiple stones there. The stones were evacuated through the cystoscope. There were larger stones present that will be treated at a later date, but innumerable stones were retrieved in this fashion. It was attempted to cannulate the left ureteral orifice. Several attempts were made over a lengthy procedure time of approximately over 45 minutes. Eventually with the use of a Pollack catheter and switching from a Sensor tip to a Glidewire, the left ureteral orifice was identified. While this procedure typically takes less than 2 minutes, this procedure time was quite lengthy considering her dysmorphic bladder and edema. A Glidewire was placed within the suspected renal pelvis. The Pollack was loaded over it to the mid ureter, and the Glidewire was then removed. Contrast was used for retrograde pyelogram, ensuring that the placement was correct within the ureter. This verified correct position. The Pollack was then used to guide a Sensor tip wire back into the renal pelvis. The Pollack was then removed, and the wire was backloaded into a 22-Brazilian rigid cystoscope. A 6 x 22 double-J ureteral stent was advanced to the renal pelvis as seen under fluoroscopy. The wire was then removed leaving a nice coil in the patient's bladder as seen under direct vision. The bladder was then drained. The patient was then taken to the PACU in good and stable condition. JESSY
--- NOTE | 2017-02-26 22:55 | PCM.PNMED ---
Subjective Date of Service Feb 26, 2017 Subjective Patient has no new complaints. She was seen after stent placement and was in no discomfort and no pain. She has no fever. She appears to be slightly more lucid. Exam Vital Signs Vital Sign - Last Date Time Temp Pulse Resp B/P Pulse Ox O2 Delivery O2 Flow Rate FiO2 02/26/17 22:26 36.7 94 16 153/79 96 Room Air 02/26/17 16:15 10 Intake and Output 02/25/17 02/25/17 02/26/17 Cumulative From/Thru 15:00 23:00 07:00 02/24/17 11:29 - 02/26/17 06:38 Intake Total 1683 ml 1277 ml 5030 ml Output Total 950 ml 1100 ml 3600 ml Balance 733 ml 177 ml 1430 ml Intake Oral 700 ml 100 ml 920 ml IV Total 983 ml 1177 ml 4110 ml Output Urine Total 600 ml 550 ml 2200 ml Stool Total 350 ml 550 ml 1400 ml Exam General: Patient is in no apparent distress. She is lying comfortably supine in bed. Patient is more lucid again today HEENT: Head is atraumatic and normocephalic. Eyes: Pupils are equally round and reactive to light and accommodation. Extraocular muscles are intact. Sclera are white, anicteric. Subconjunctival mucosa is pink. Ears and nose are unremarkable. Oropharynx: There is no mucosal lesions, there is no thrush, there is no pharyngitis. Dentition is poor. Neck: Is supple, there are no nodes, or masses or tenderness. Chest: Is clear to auscultation and percussion. There are no rales, rhonchi, wheezes or rubs. Heart: Rate is controlled, rhythm is irregular. There is no murmur, rub or gallop. Abdomen: Good bowel sounds are present. Abdomen is obese, soft, nontender, no organomegaly or masses were appreciated. Colostomy bag is present on the left side of the abdomen as well functional. There is a suprapubic catheter. Extremities: Are symmetrical and well perfused. There is no edema, there is no cellulitis, no rash. She has a small decubitus ulcer in the sacral area which is only a few millimeters in diameter and appears to have some purulent drainage. Neurologic: Cranial nerves II through XII are intact. The patient is essentially paraplegic with no movement of the lower extremities. Her upper extremities are weak but strength is symmetrical. There is bilateral foot drop. Patient is more lucid today Psychiatric: Patients mood is calm and she shows no sign of agitation. Genital: Deferred Rectal: Deferred Lab and Diagnostics Result Diagram: 02/26/1764002/26/17640 Microbiology Urine culture is nonrevealing. Dr. Marroquin and I have independently called the microbiology lab and asked them to try to isolate a predominant pathogen within the "mixed adry" Blood cultures pending.. Name: EVANGARY L Age/Sex: 67/F Attend Dr: Krishna Leary Acct: [id number] Unit: [id number] Status: ADM IN Location: [facility] [place] 249-1 Re02/24/17 Disch: Specimen: [id number] Collected: 02/24/17 Status: COMP Req#: [id number] Received: 02/25/17 Source: JUANPABLO Guillaume Desc : Subm Dr: Krishna Leary MD Ordered: GISELLE MRSA PCR Comments: Collected by Nurse/Unit? Y/N Y Procedure Result Verified Site Microbiology GISELLE MRSA PCR Final 02/25/17-18 MRSA BY PCR NEGATIVE REFERENCE INTERVAL NEGATIVE X-Rays, CTs and MRIs PROCEDURE: US RENAL SONOGRAM INDICATIONS: Possible Hydronephrosis TECHNIQUE: Real-time scanning was performed of the kidneys and bladder, with image documentation. COMPARISON: [facility], CT, CT KUB, 02/24/2017, 14:19. FINDINGS: Kidneys: Kidneys are normal in size. Right kidney measures 11.3 cm long; left kidney measures 15.6 cm long. Right renal cortical thickness is 1.5 cm; left renal cortical thickness is 1.2 cm. there is a 4.0 x 3.0 x 3.3 cm right renal cyst with mural calcification. This measured 3.6 x 3.0 x 3.3 cm on the study dated 01/21/16. There is severe left hydronephrosis. A cluster of punctate renal calculi are present within the central left renal collecting system. The nonobstructing calcifications are also present within the left lower pole. The proximal left ureter is markedly dilated. Bladder: The bladder is decompressed and a Peacock catheter is present. Miscellaneous: No free pelvic fluid. IMPRESSION: 1. Severe left hydronephrosis with multiple nonobstructing calculi. 2. Right renal cyst with mural calcification. If further characterization is warranted, renal mass protocol CT may be helpful to evaluate for mural nodularity. Dictated by: Carmen Matias M.D. on 02/24/2017 at 18:04 Approved by: Carmen Matias M.D. on 02/24/2017 at 18:09 PROCEDURE: CT KUB ([id number]) INDICATIONS: leukocytosis, h/o stones, UTI TECHNIQUE: Noncontrast 5 mm thick sections acquired from the diaphragms to the symphysis. 5 mm thick coronal and sagittal reformats were then performed. For radiation dose reduction, the following was used: automated exposure control, adjustment of mA and/or kV according to patient size. COMPARISON: [facility], CT, CT KUB, 09/17/2016, 13:17. FINDINGS: Image quality: Excellent. Lung bases: Lung bases are clear. Heart size is normal. Urinary system: Both kidneys are mildly atrophic. The right kidney demonstrates an unchanged exophytic cyst with partial rim calcification. There are several punctate nonobstructing calcifications within the inferior pole. There are unchanged. The left kidney demonstrates approximately 10-12 calcifications throughout the kidney the largest in the posterior aspect of the midpole measuring approximately 10 mm Hounsfield units 376. There are dependent layering calcifications within the renal pelvis, a less prominent when compared to prior exam. There is a distal right ureteral calculus measuring 5 mm, Hounsfield units to 72. There is moderate hydronephrosis and hydroureter on the left. A suprapubic Peacock catheter is present. Once again, there are multiple calcifications within the bladder lumen. Other solid organs: Liver and spleen are normal in size. There is poorly defined questionable low attenuation along the anterior left and right hepatic lobes seen on series 2 image 22. The liver overall demonstrates steatosis. Gallbladder demonstrate a large luminal calcification without wall thickening. No interval change.. Pancreas is normal in contours. No adrenal nodules. Peritoneum and bowel: Unenhanced bowel loops demonstrate normal wall thickness and caliber. No free fluid or air. Nodes and vessels: No retroperitoneal or mesenteric adenopathy by size criteria. Aorta and inferior vena cava are normal in caliber. Abdominal wall: No ventral hernias. Pelvis: No free pelvic fluid. No inguinal hernias or adenopathy. Bones: No suspicious bony lesions. No vertebral body compression fractures. IMPRESSION: 1. Bilateral renal calcifications. 2. Less prominent appearance of calcifications within the left kidney, particularly the layering renal pelvic calcifications, as described above. There is a distal left ureteral calcification measuring 5 mm causing moderate hydronephrosis and hydroureter. 3. Unchanged appearance of Peacock catheter within the bladder and numerous bladder calcifications. 4. Unchanged cholelithiasis. 5. Poorly defined area of questionable low attenuation along the anterior aspect of the liver as described above. This could represent artifact or variability of hepatic steatosis. However, a mass within this region cannot be definitively excluded. Followup with focal ultrasound is recommended. Dictated by: Melody Rea M.D. on 02/24/2017 at 14:28 Approved by: Melody Rea M.D. on 02/24/2017 at 14:35 Assessment & Plan The patient is a pleasant 67-year-old white female with history of multiple sclerosis, atrial fibrillation on Coumadin, hypertension, and insulin-dependent diabetes mellitus who presented to the emergency room department at [facility] brought in in a private vehicle by her complaining of generalized weakness onset 2 days ago. The reason she decided to come in when she did this because she had "foul-smelling urine" according to her . Patient also complained of generalized confusion, nausea, subjective fever, decreased appetite the patient denied abdominal pain, vomiting, chills, flank pain. Patient has had a history of recurrent urinary tract infections previously with very similar symptoms. The patient was evaluated in the emergency room by Dr. Curt Galdamez who felt that the patient had an acute kidney injury and probable urinary tract infection. Incidentally noted that there was a left ureteral stone. Urology was consulted for this after consultation with possible cervicitis or cefuroxime was given in the emergency room. Patient has multiple drug allergies. The patient tolerated the cefuroxime very well. The patient was admitted to the hospital service for further evaluation and treatment. # Urinary tract infection with sepsis presenting with confusion, nausea and subjective fever and decreased appetite. - Patient has numerous drug allergies (see list) we have decided to treat the patient was cefuroxime which she has tolerated in the past. - Continue cefuroxime awaiting urine culture results. - Patient tolerated her first dose of cefuroxime quite well. - IV hydration - I have consulted Dr. Akbar Marroquin of infectious disease referring my patient and greatly appreciate his consultation and input. I agree with continuing cefuroxime for now. Dr. Marroquin and I have both independently called microbiology lab and asked them to try to isolate a predominant pathogen from the "mixed dary". Patient was given a dose of ertapenem preoperatively. 2 different isolates of gram-negative rods have been isolated. We will check final culture and susceptibility results. # Acute encephalopathy - History secondary to the urinary tract infection. - Continue antibiotics. - Continue hydration # Multiple sclerosis - Patient is bedridden with suprapubic catheter and is unable to move her lower extremities. - She has a constant risk for recurrent infection despite having a suprapubic catheter changed every 2 weeks. - Patient was thought to have a small decubitus ulcer. However, the wound care team sees no evidence of any decubiti. - Continue supportive care. - We will consult physical therapy and occupational therapy. # Atrial fibrillation - Rate appears to be controlled with pacemaker - We will continue Coumadin per pharmacy - Check daily PT/INR # Nephrolithiasis - Urology has been consulted and appreciate their input. Will follow the recommendations - Patient to be nothing by mouth after midnight in the event she may need surgery due to severe hydronephrosis on the left with left ureteral calculi as seen on ultrasound. - Continue IV hydration and cefuroxime. - Continue Flomax. # History of DVT and pulmonary embolism - Continue Coumadin per pharmacy. # History of MRSA nasal swab. - We will repeat nasal swab for MRSA. - Check decubitus ulcer, which is quite small, for culture # Decreased level of consciousness - Likely due to sepsis from the urinary tract infection - We will have speech therapy evaluate the patient. Disposition: Patient will likely be here at least another 48 hours for the evaluation treatment the above problem Pain Evaluation: Adequate Pain Control GI Prophylaxis: Not indicated VTE Prophylaxis: Theraputic Anticoag with Warfarin Resuscitation Status: CPR: Attempt Resuscitation Krsihna Leary MD Feb 26, 2017 22:55
[2017-02-27] VITALS (9 sets, daily range): BP systolic 97–147; BP diastolic 55–77; PULSE 74–87; RESP 14–16; O2SAT 94–96
[2017-02-27] MEDS: 0.9% Sodium Chloride 1,000 ML IV SCH ×4 (02:08→12:21)
[2017-02-27] MEDS: CEFUROXIME IV SCH ×2 (02:11→14:36)
[2017-02-27] MEDS: DEXTROSE 5% IV SCH ×2 (02:11→14:36)
--- NOTE | 2017-02-27 06:25 | NUR ---
Urine output/skin care pt void 1425 ml sediment teresa brownish urine per Peacock catheter. pt spent most of the night by resting quietly with eyes closed. Denies pain and nausea. pt has been turning Q2 hrs, cleaned and applied skin protection. heals and elbow protection foam in place. soft touch call light within reach. will continue to monitor.
[2017-02-27 06:59] LABS: BASOPHILS % (AUTO) 0.4 % (0-3); EOSINOPHILS % (AUTO) 1.5 % (0-5); MONOCYTES % (AUTO) 8.4 % (4-12); Mean Corpuscular Hemoglobin 27.5 pg (27.0-35.0); Mean Corpuscular Volume 88.2 fL (81-100); NEUTROPHILS % (AUTO) 75.4 % (40-74); Platelet Count 176 bil/L (150-400)
[2017-02-27 07:40] LABS: INR 3.93 ratio
[2017-02-27 07:41] LABS: Magnesium 1.8 mg/dL (1.6-2.6)
--- NOTE | 2017-02-27 07:57 | PCM.PHAPRO ---
Progress Warfarin Management by Pharmacy: -inr is supratherapeutic at 3.93, will hold dose this evening Leigha Henriquez [facility] Feb 27, 2017 07:57
[2017-02-27] MEDS: Insulin Human NPH 100 Unit/mL 3 mL Inj SUBQ SCH ×3 (08:09→20:28)
[2017-02-27] MEDS: Potassium Chloride 20 mEq SR Tablet PO SCH (08:24)
--- NOTE | 2017-02-27 10:49 | NUR ---
Morning Rounds Staffed patient's case with Dr. Leary and case managment. Dr. Leary stated urine cultures are pending, which will determine continued course of IV vs PO antibiotic. No plan for discharge at this time, possible in the next 48 hours.
[2017-02-27] MEDS ORDERED: Ertapenem Inj 1,000 MG in 0.9% Sodium Chloride 50 ML IV ONE (14:30)
--- NOTE | 2017-02-27 14:38 | PCM.PNMED ---
Subjective Date of Service Feb 27, 2017 Subjective Patient states she does not feel any different. She is slowly eating her breakfast. He has no new complaints. Exam Vital Signs Vital Sign - Last Date Time Temp Pulse Resp B/P Pulse Ox O2 Delivery O2 Flow Rate FiO2 02/27/17 10:13 87 02/27/17 10:03 37.1 14 97/59 94 Room Air 02/26/17 16:15 10 Intake and Output 02/26/17 02/26/17 02/27/17 Cumulative From/Thru 15:00 23:00 07:00 02/24/17 11:29 - 02/27/17 06:22 Intake Total 150 ml 1182 ml 1356 ml 7718 ml Output Total 1400 ml 1425 ml 6425 ml Balance 150 ml -218 ml -69 ml 1293 ml Intake Oral 100 ml 200 ml 1220 ml IV Total 150 ml 1082 ml 1156 ml 6498 ml Output Urine Total 900 ml 1425 ml 4525 ml Stool Total 500 ml 0 ml 1900 ml Exam General: Patient is in no apparent distress lying supine in bed with head elevated. She is slowly trying to peel away the cover to the jelly that she is going to spread on her Indonesian muffin. She does not want any help and is determined to do it by herself. HEENT: Head is atraumatic and normocephalic. Eyes: Pupils are equally round and reactive to light and accommodation. Extraocular muscles are intact. Sclera are white, anicteric. Subconjunctival mucosa is pink. Ears and nose are unremarkable. Oropharynx: There is no mucosal lesions, there is no thrush, there is no pharyngitis. Dentition is poor. Neck: Is supple, there are no nodes, or masses or tenderness. Chest: Is clear to auscultation and percussion. There are no rales, rhonchi, wheezes or rubs. Heart: Rate is controlled, rhythm is irregular. There is no new murmur, rub or gallop. Abdomen: Good bowel sounds are present. Abdomen is obese, soft, nontender, no organomegaly or masses were appreciated. Colostomy bag is present on the left side of the abdomen and is functioning well. There is a suprapubic catheter in place. Extremities: Are symmetrical and well perfused. There is no edema, there is no cellulitis, no rash. She has a small decubitus ulcer in the sacral area which is only a few millimeters in diameter and appears to have some purulent drainage. Neurologic: Cranial nerves II through XII are intact. The patient is essentially paraplegic with no movement of the lower extremities. Her upper extremities are weak but strength is symmetrical. There is bilateral foot drop. Patient is more lucid again today. Psychiatric: Patients mood is calm and she shows no sign of agitation. Genital: Deferred Rectal: Deferred Lab and Diagnostics Result Diagram: 02/27/1764202/27/17642 Microbiology Urine culture is nonrevealing. Dr. Marroquin and I have independently called the microbiology lab and asked them to try to isolate a predominant pathogen within the "mixed dary" Blood cultures pending.. Name: GARY GORDON Age/Sex: 67/F Attend Dr: Krishna Leary Acct: [id number] Unit: [id number] Status: ADM IN [place] [facility] [place] 249-1 Re02/24/17 Disch: Specimen: [id number] Collected: 02/24/17 Status: ENOCH Ruiz#: [id number] Received: 02/25/17 Source: JUANPABLO Guillaume Desc : Subm Dr: Krishna Leary MD Ordered: GISELLE MRSA PCR Comments: Collected by Nurse/Unit? Y/N Y Procedure Result Verified Site Microbiology GISELLE MRSA PCR Final 02/25/17-717 MRSA BY PCR NEGATIVE REFERENCE INTERVAL NEGATIVE X-Rays, CTs and MRIs PROCEDURE: US RENAL SONOGRAM INDICATIONS: Possible Hydronephrosis TECHNIQUE: Real-time scanning was performed of the kidneys and bladder, with image documentation. COMPARISON: [facility], CT, CT KUB, 02/24/2017, 14:19. FINDINGS: Kidneys: Kidneys are normal in size. Right kidney measures 11.3 cm long; left kidney measures 15.6 cm long. Right renal cortical thickness is 1.5 cm; left renal cortical thickness is 1.2 cm. there is a 4.0 x 3.0 x 3.3 cm right renal cyst with mural calcification. This measured 3.6 x 3.0 x 3.3 cm on the study dated 01/21/16. There is severe left hydronephrosis. A cluster of punctate renal calculi are present within the central left renal collecting system. The nonobstructing calcifications are also present within the left lower pole. The proximal left ureter is markedly dilated. Bladder: The bladder is decompressed and a Peacock catheter is present. Miscellaneous: No free pelvic fluid. IMPRESSION: 1. Severe left hydronephrosis with multiple nonobstructing calculi. 2. Right renal cyst with mural calcification. If further characterization is warranted, renal mass protocol CT may be helpful to evaluate for mural nodularity. Dictated by: Carmen Matias M.D. on 02/24/2017 at 18:04 Approved by: Carmen Matias M.D. on 02/24/2017 at 18:09 PROCEDURE: CT KUB ([id number]) INDICATIONS: leukocytosis, h/o stones, UTI TECHNIQUE: Noncontrast 5 mm thick sections acquired from the diaphragms to the symphysis. 5 mm thick coronal and sagittal reformats were then performed. For radiation dose reduction, the following was used: automated exposure control, adjustment of mA and/or kV according to patient size. COMPARISON: [facility], CT, CT KUB, 09/17/2016, 13:17. FINDINGS: Image quality: Excellent. Lung bases: Lung bases are clear. Heart size is normal. Urinary system: Both kidneys are mildly atrophic. The right kidney demonstrates an unchanged exophytic cyst with partial rim calcification. There are several punctate nonobstructing calcifications within the inferior pole. There are unchanged. The left kidney demonstrates approximately 10-12 calcifications throughout the kidney the largest in the posterior aspect of the midpole measuring approximately 10 mm Hounsfield units 376. There are dependent layering calcifications within the renal pelvis, a less prominent when compared to prior exam. There is a distal right ureteral calculus measuring 5 mm, Hounsfield units to 72. There is moderate hydronephrosis and hydroureter on the left. A suprapubic Peacock catheter is present. Once again, there are multiple calcifications within the bladder lumen. Other solid organs: Liver and spleen are normal in size. There is poorly defined questionable low attenuation along the anterior left and right hepatic lobes seen on series 2 image 22. The liver overall demonstrates steatosis. Gallbladder demonstrate a large luminal calcification without wall thickening. No interval change.. Pancreas is normal in contours. No adrenal nodules. Peritoneum and bowel: Unenhanced bowel loops demonstrate normal wall thickness and caliber. No free fluid or air. Nodes and vessels: No retroperitoneal or mesenteric adenopathy by size criteria. Aorta and inferior vena cava are normal in caliber. Abdominal wall: No ventral hernias. Pelvis: No free pelvic fluid. No inguinal hernias or adenopathy. Bones: No suspicious bony lesions. No vertebral body compression fractures. IMPRESSION: 1. Bilateral renal calcifications. 2. Less prominent appearance of calcifications within the left kidney, particularly the layering renal pelvic calcifications, as described above. There is a distal left ureteral calcification measuring 5 mm causing moderate hydronephrosis and hydroureter. 3. Unchanged appearance of Peacock catheter within the bladder and numerous bladder calcifications. 4. Unchanged cholelithiasis. 5. Poorly defined area of questionable low attenuation along the anterior aspect of the liver as described above. This could represent artifact or variability of hepatic steatosis. However, a mass within this region cannot be definitively excluded. Followup with focal ultrasound is recommended. Dictated by: Melody Rea M.D. on 02/24/2017 at 14:28 Approved by: Melody Rea M.D. on 02/24/2017 at 14:35 Assessment & Plan The patient is a pleasant 67-year-old white female with history of multiple sclerosis, atrial fibrillation on Coumadin, hypertension, and insulin-dependent diabetes mellitus who presented to the emergency room department at [facility] brought in in a private vehicle by her complaining of generalized weakness onset 2 days ago. The reason she decided to come in when she did is because she had "foul-smelling urine" according to her . Patient also complained of generalized confusion, nausea, subjective fever, decreased appetite the patient denied abdominal pain, vomiting, chills, flank pain. Patient has had a history of recurrent urinary tract infections previously with very similar symptoms. The patient was evaluated in the emergency room by Dr. Curt Galdamez who felt that the patient had an acute kidney injury and probable urinary tract infection. Incidentally noted that there was a left ureteral stone. Urology was consulted for this after consultation with possible cervicitis or cefuroxime was given in the emergency room. Patient has multiple drug allergies. The patient tolerated the cefuroxime very well. The patient was admitted to the hospital service for further evaluation and treatment. # Urinary tract infection with sepsis presenting with confusion, nausea and subjective fever and decreased appetite. - Patient has numerous drug allergies (see list) we have decided to treat the patient was cefuroxime which she has tolerated in the past. - Continue cefuroxime awaiting urine culture results. - Patient tolerated her first dose of cefuroxime quite well. - IV hydration - I have consulted Dr. Akbar Marroquin of infectious disease referring my patient and greatly appreciate his consultation and input. I agree with continuing cefuroxime for now. Dr. Marroquin and I have both independently called microbiology lab and asked them to try to isolate a predominant pathogen from the "mixed dary". Patient was given a dose of ertapenem preoperatively. We will also give another dose of ertapenem today pending final urine culture results. 2 different isolates of gram-negative rods have been isolated. We will check final culture and susceptibility results. # Acute encephalopathy - Secondary to the urinary tract infection. - Continue antibiotics. - Continue hydration # Multiple sclerosis - Patient is bedridden with suprapubic catheter and is unable to move her lower extremities. - She has a constant risk for recurrent infection despite having a suprapubic catheter changed every 2 weeks. She has multiple bladder stones which not all could be removed. - Patient was thought to have a small decubitus ulcer. However, the wound care team sees no evidence of any decubiti. - Continue supportive care. - We will consult physical therapy and occupational therapy. # Atrial fibrillation - Rate appears to be controlled with pacemaker - We will continue Coumadin per pharmacy - Check daily PT/INR, her INR is supratherapeutic today # Nephrolithiasis - Urology has been consulted and appreciate their input. Will follow the recommendations - Patient had severe hydronephrosis on the left with left ureteral calculi as seen on ultrasound. - Patient is postop day #1 ureteral stent placement on the left. Patient tolerated the procedure well. Patient also had numerous bladder stones found and several of them were removed during the procedure. - Continue IV hydration and cefuroxime. We will give another dose of ertapenem today pending urine culture results - Continue Flomax. # History of DVT and pulmonary embolism - Continue Coumadin per pharmacy. # History of MRSA nasal swab. - We will repeat nasal swab for MRSA. - Check decubitus ulcer, which is quite small, for culture # Decreased level of consciousness - Likely due to sepsis from the urinary tract infection - We will have speech therapy evaluate the patient. Disposition: Patient will likely be here at least another 48 hours for the evaluation treatment the above problem Pain Evaluation: Adequate Pain Control GI Prophylaxis: Proton Pump Inhibitor VTE Prophylaxis: Theraputic Anticoag with Warfarin Resuscitation Status: CPR: Attempt Resuscitation Krishna Leary MD Feb 27, 2017 14:38
--- NOTE | 2017-02-27 22:37 | NUR ---
MEDICATIONS Pt did not have applesauce with evening meds, at she reported she usually does. Had applesauce after medications, pt reported no GI symptoms. Will pass onto dayshift pt takes medications, especially niacin, with applesauce. Pt reports no complaints at this time. Hourly rounding.
[2017-02-28] VITALS (8 sets, daily range): BP systolic 115–165; BP diastolic 68–84; PULSE 70–77; RESP 14–16; O2SAT 93–96
[2017-02-28] MEDS: DEXTROSE 5% IV SCH (02:28)
[2017-02-28] MEDS: CEFUROXIME IV SCH (02:28)
[2017-02-28] MEDS: 0.9% Sodium Chloride 1,000 ML IV SCH ×3 (02:29→18:08)
[2017-02-28 07:45] LABS: INR 3.95 ratio
--- NOTE | 2017-02-28 08:24 | PCM.PHAPRO ---
Progress Warfarin Management: -inr remains supratherapeutic after being held for the past 2 days (inr = 3.95) . will hold dose this evening and follow Leigha Henriquez [facility] Feb 28, 2017 08:24
[2017-02-28] MEDS: Potassium Chloride 20 mEq SR Tablet PO SCH (08:32)
[2017-02-28] MEDS: Insulin Human NPH 100 Unit/mL 3 mL Inj SUBQ SCH ×2 (08:32→21:08)
[2017-02-28] MEDS: Pantoprazole 40 mg ER24 Tablet PO SCH (08:33)
[2017-02-28] MEDS: cefTRIAXone Inj 2,000 MG in Dextrose 5% Minibag Plus 50 ML IV SCH (10:19)
[2017-02-28 10:21] LABS: BASOPHILS % (AUTO) 1.1 % (0-3); MONOCYTES % (AUTO) 8.3 % (4-12); Mean Corpuscular Hemoglobin 27.9 pg (27.0-35.0); Mean Corpuscular Volume 87.1 fL (81-100); NEUTROPHILS % (AUTO) 60.9 % (40-74); Platelet Count 205 bil/L (150-400)
--- NOTE | 2017-02-28 10:30 | NUR ---
Morning Rounds Staffed patient's case with Dr. Leary and case management. Dr. Leary stated patient's antibiotics have been changed based on the urine culture results, even though the antibiotic is one listed as an allergy, and will likely discharge tomorrow.
--- NOTE | 2017-02-28 10:44 | NUR ---
KEVIN KEVIN signed
--- NOTE | 2017-02-28 11:00 | NUR ---
No Adverse Reaction to Antibiotic There has not been any adverse reaction noted in response to change in patient's antibiotic.
[2017-02-28 11:23] LABS: Magnesium 1.7 mg/dL (1.6-2.6)
--- NOTE | 2017-02-28 18:23 | NUR ---
Elevated BP Contacted Dr. Leary with the following cook page: Just to notify you, patient's BP is currently 165/84, which is the highest it's been since admission.
--- NOTE | 2017-02-28 23:52 | PCM.PNMED ---
Subjective Date of Service Feb 28, 2017 Subjective Patient has no new complaints. She continues to be well and there is questions appropriately. She appears comfortable laying in bed. Exam Vital Signs Vital Sign - Last Date Time Temp Pulse Resp B/P Pulse Ox O2 Delivery O2 Flow Rate FiO2 02/28/17 22:11 36.8 75 16 138/68 96 Room Air 02/26/17 16:15 10 Intake and Output 02/27/17 02/27/17 02/28/17 Cumulative From/Thru 15:00 23:00 07:00 02/24/17 11:29 - 02/28/17 06:19 Intake Total 2461 ml 1386 ml 89017 ml Output Total 1700 ml 1900 ml 35442 ml Balance 761 ml -514 ml 1540 ml Intake Oral 1240 ml 240 ml 2700 ml IV Total 1221 ml 1146 ml 8865 ml Output Urine Total 1250 ml 1750 ml 7525 ml Stool Total 450 ml 150 ml 2500 ml Exam General: Patient is in no apparent distress lying supine in bed with head elevated. She continues to see well and she continues to be as independent as possible. HEENT: Head is atraumatic and normocephalic. Eyes: Pupils are equally round and reactive to light and accommodation. Extraocular muscles are intact. Sclera are white, anicteric. Subconjunctival mucosa is pink. Ears and nose are unremarkable. Oropharynx: There is no mucosal lesions, there is no thrush, there is no pharyngitis. Dentition is poor. Neck: Is supple, there are no nodes, or masses or tenderness. Chest: Is clear to auscultation and percussion. There are no rales, rhonchi, wheezes or rubs. Heart: Rate is controlled, rhythm is irregular. There is no new murmur, rub or gallop. Abdomen: Good bowel sounds are present. Abdomen is obese, soft, nontender, no organomegaly or masses were appreciated. Colostomy bag is present on the left side of the abdomen and is functioning well. There is a suprapubic catheter in place. Extremities: Are symmetrical and well perfused. There is no edema, there is no cellulitis, no rash. She has a small decubitus ulcer in the sacral area which is only a few millimeters in diameter and appears to have some purulent drainage. Neurologic: Cranial nerves II through XII are intact. The patient is essentially paraplegic with no movement of the lower extremities. Her upper extremities are weak but strength is symmetrical. There is bilateral foot drop. Patient is more lucid again today. Psychiatric: Patients mood is calm and she shows no sign of agitation. Genital: Deferred Rectal: Deferred Lab and Diagnostics Result Diagram: 02/28/17 1015 02/28/17 1015 Microbiology Urine culture is nonrevealing. Dr. Marroquin and I have independently called the microbiology lab and asked them to try to isolate a predominant pathogen within the "mixed dary" Blood cultures pending.. Name: GARY GORDON Age/Sex: 67/F Attend Dr: Krishna Leary Acct: [id number] Unit: [id number] Status: ADM IN Location: [facility] [place] 249-1 Re02/24/17 Disch: Specimen: [id number] Collected: 02/24/17 Status: COMP Req#: [id number] Received: 02/25/17 Source: JUANPABLO Guillaume Desc : Subm Dr: Krishna Leary MD Ordered: GISELLE MRSA PCR Comments: Collected by Nurse/Unit? Y/N Y Procedure Result Verified Site Microbiology GISELLE MRSA PCR Final 02/25/17-717 MRSA BY PCR NEGATIVE REFERENCE INTERVAL NEGATIVE X-Rays, CTs and MRIs PROCEDURE: US RENAL SONOGRAM INDICATIONS: Possible Hydronephrosis TECHNIQUE: Real-time scanning was performed of the kidneys and bladder, with image documentation. COMPARISON: [facility], CT, CT KUB, 02/24/2017, 14:19. FINDINGS: Kidneys: Kidneys are normal in size. Right kidney measures 11.3 cm long; left kidney measures 15.6 cm long. Right renal cortical thickness is 1.5 cm; left renal cortical thickness is 1.2 cm. there is a 4.0 x 3.0 x 3.3 cm right renal cyst with mural calcification. This measured 3.6 x 3.0 x 3.3 cm on the study dated 01/21/16. There is severe left hydronephrosis. A cluster of punctate renal calculi are present within the central left renal collecting system. The nonobstructing calcifications are also present within the left lower pole. The proximal left ureter is markedly dilated. Bladder: The bladder is decompressed and a Peacock catheter is present. Miscellaneous: No free pelvic fluid. IMPRESSION: 1. Severe left hydronephrosis with multiple nonobstructing calculi. 2. Right renal cyst with mural calcification. If further characterization is warranted, renal mass protocol CT may be helpful to evaluate for mural nodularity. Dictated by: Carmen Matias M.D. on 02/24/2017 at 18:04 Approved by: Carmen Matias M.D. on 02/24/2017 at 18:09 PROCEDURE: CT KUB ([id number]) INDICATIONS: leukocytosis, h/o stones, UTI TECHNIQUE: Noncontrast 5 mm thick sections acquired from the diaphragms to the symphysis. 5 mm thick coronal and sagittal reformats were then performed. For radiation dose reduction, the following was used: automated exposure control, adjustment of mA and/or kV according to patient size. COMPARISON: [facility], CT, CT KUB, 09/17/2016, 13:17. FINDINGS: Image quality: Excellent. Lung bases: Lung bases are clear. Heart size is normal. Urinary system: Both kidneys are mildly atrophic. The right kidney demonstrates an unchanged exophytic cyst with partial rim calcification. There are several punctate nonobstructing calcifications within the inferior pole. There are unchanged. The left kidney demonstrates approximately 10-12 calcifications throughout the kidney the largest in the posterior aspect of the midpole measuring approximately 10 mm Hounsfield units 376. There are dependent layering calcifications within the renal pelvis, a less prominent when compared to prior exam. There is a distal right ureteral calculus measuring 5 mm, Hounsfield units to 72. There is moderate hydronephrosis and hydroureter on the left. A suprapubic Peacock catheter is present. Once again, there are multiple calcifications within the bladder lumen. Other solid organs: Liver and spleen are normal in size. There is poorly defined questionable low attenuation along the anterior left and right hepatic lobes seen on series 2 image 22. The liver overall demonstrates steatosis. Gallbladder demonstrate a large luminal calcification without wall thickening. No interval change.. Pancreas is normal in contours. No adrenal nodules. Peritoneum and bowel: Unenhanced bowel loops demonstrate normal wall thickness and caliber. No free fluid or air. Nodes and vessels: No retroperitoneal or mesenteric adenopathy by size criteria. Aorta and inferior vena cava are normal in caliber. Abdominal wall: No ventral hernias. Pelvis: No free pelvic fluid. No inguinal hernias or adenopathy. Bones: No suspicious bony lesions. No vertebral body compression fractures. IMPRESSION: 1. Bilateral renal calcifications. 2. Less prominent appearance of calcifications within the left kidney, particularly the layering renal pelvic calcifications, as described above. There is a distal left ureteral calcification measuring 5 mm causing moderate hydronephrosis and hydroureter. 3. Unchanged appearance of Peacock catheter within the bladder and numerous bladder calcifications. 4. Unchanged cholelithiasis. 5. Poorly defined area of questionable low attenuation along the anterior aspect of the liver as described above. This could represent artifact or variability of hepatic steatosis. However, a mass within this region cannot be definitively excluded. Followup with focal ultrasound is recommended. Dictated by: Melody Rea M.D. on 02/24/2017 at 14:28 Approved by: Melody Rea M.D. on 02/24/2017 at 14:35 Assessment & Plan The patient is a pleasant 67-year-old white female with history of multiple sclerosis, atrial fibrillation on Coumadin, hypertension, and insulin-dependent diabetes mellitus who presented to the emergency room department at [facility] brought in in a private vehicle by her complaining of generalized weakness onset 2 days ago. The reason she decided to come in when she did is because she had "foul-smelling urine" according to her . Patient also complained of generalized confusion, nausea, subjective fever, decreased appetite the patient denied abdominal pain, vomiting, chills, flank pain. Patient has had a history of recurrent urinary tract infections previously with very similar symptoms. The patient was evaluated in the emergency room by Dr. Curt Galdamez who felt that the patient had an acute kidney injury and probable urinary tract infection. Incidentally noted that there was a left ureteral stone. Urology was consulted for this after consultation with possible cervicitis or cefuroxime was given in the emergency room. Patient has multiple drug allergies. The patient tolerated the cefuroxime very well. The patient was admitted to the hospital service for further evaluation and treatment. # Urinary tract infection with sepsis presenting with confusion, nausea and subjective fever and decreased appetite. The primary pathogens at this time appear to be a Proteus species and an Alcaligenes species both of which are sensitive to Rocephin. - Patient has numerous drug allergies (see list) we have decided to treat the patient was cefuroxime which she has tolerated in the past. - We will change cefuroxime to ceftriaxone 2 g IV every 24 hours. - Patient tolerated cefuroxime quite well and should also be obtained to tolerate ceftriaxone just fine. - IV hydration - I have discussed case with Dr. Akbar Marroquin of infectious disease and greatly appreciate his consultation and input. # Acute encephalopathy - Secondary to the urinary tract infection. - Continue antibiotics. - Continue hydration # Multiple sclerosis - Patient is bedridden with suprapubic catheter and is unable to move her lower extremities. - She has a constant risk for recurrent infection despite having a suprapubic catheter changed every 2 weeks. She has multiple bladder stones which not all could be removed. - Patient was thought to have a small decubitus ulcer. However, the wound care team sees no evidence of any decubiti. - Continue supportive care. - We will continue physical therapy and occupational therapy. # Atrial fibrillation - Rate appears to be controlled with pacemaker - We will continue Coumadin per pharmacy - Check daily PT/INR, her INR is supratherapeutic today # Nephrolithiasis - Urology has been consulted and appreciate their input. Will follow the recommendations - Patient had severe hydronephrosis on the left with left ureteral calculi as seen on ultrasound. - Patient is postop day #3 ureteral stent placement on the left. Patient tolerated the procedure well. Patient also had numerous bladder stones found and several of them were removed during the procedure. - Continue IV hydration and cefuroxime. We will give another dose of ertapenem today pending urine culture results - Continue Flomax. # History of DVT and pulmonary embolism - Continue Coumadin per pharmacy. # History of MRSA nasal swab. - The repeat nasal swab for MRSA was negative. - Check decubitus ulcer, which is quite small, for culture. This is negative to date # Decreased level of consciousness resident at the time of admission and improved - Likely due to sepsis from the urinary tract infection - We will have speech therapy evaluate the patient. Disposition: Patient will likely be here at least another 24 -48 hours for the evaluation treatment the above problem Dr. Neil to follow in a.m. Pain Evaluation: Adequate Pain Control GI Prophylaxis: Proton Pump Inhibitor VTE Prophylaxis: Theraputic Anticoag with Warfarin Resuscitation Status: CPR: Attempt Resuscitation Krishna Leary MD Feb 28, 2017 23:52
[2017-03-01] VITALS (9 sets, daily range): BP systolic 124–166; BP diastolic 68–79; PULSE 68–83; RESP 16–18; O2SAT 94–95
[2017-03-01 06:34] LABS: Mean Corpuscular Hemoglobin 27.8 pg (27.0-35.0); Mean Corpuscular Volume 88.4 fL (81-100); Platelet Count 259 bil/L (150-400)
[2017-03-01 06:38] LABS: INR 2.74 ratio
[2017-03-01 07:05] LABS: Magnesium 1.6 mg/dL (1.6-2.6)
[2017-03-01 07:23] LABS: BASOPHILS % (AUTO) 1 % (0-3); EOSINOPHILS % (AUTO) 3 % (0-5); MONOCYTES % (AUTO) 7 % (4-12); NEUTROPHILS % (AUTO) 64 % (40-74)
[2017-03-01] MEDS: Potassium Chloride 20 mEq SR Tablet PO SCH (07:56)
[2017-03-01] MEDS: Pantoprazole 40 mg ER24 Tablet PO SCH (07:56)
[2017-03-01] MEDS: Insulin Human NPH 100 Unit/mL 3 mL Inj SUBQ SCH ×3 (08:05→20:26)
[2017-03-01] MEDS: cefTRIAXone Inj 2,000 MG in Dextrose 5% Minibag Plus 50 ML IV SCH (09:53)
--- NOTE | 2017-03-01 10:54 | PCM.PNMED ---
Subjective Date of Service Mar 01, 2017 Subjective no overnight event no n/v, pain, Exam Vital Signs Vital Sign - Last Date Time Temp Pulse Resp B/P Pulse Ox O2 Delivery O2 Flow Rate FiO2 03/01/17 08:43 72 03/01/17 06:06 36.6 18 166/79 94 Room Air 02/26/17 16:15 10 Intake and Output 02/28/17 02/28/17 03/01/17 Cumulative From/Thru 15:00 23:00 07:00 02/24/17 11:29 - 03/01/17 06:06 Intake Total 1693 ml 1073 ml 13289 ml Output Total 1300 ml 2700 ml 36085 ml Balance 393 ml -1627 ml 306 ml Intake Oral 960 ml 200 ml 3860 ml IV Total 733 ml 873 ml 04920 ml Output Urine Total 1100 ml 2200 ml 88962 ml Stool Total 200 ml 500 ml 3200 ml Exam NAD, comfortably laying down on the bed no JVD, MMM, no LAD RRR, nl s1, s2 no mrg CTAB, no w,c S,ND,NT,normoactive BS+ flacid BLE, suprapubic cath, ostomy bag in place, no surrounding erythema/ tenderness IVs and Medications Medications Reviewed: Medications were reviewed in detail Lab and Diagnostics Result Diagram: 03/01/1760403/01/17604 Microbiology Urine culture is nonrevealing. Dr. Marroquin and I have independently called the microbiology lab and asked them to try to isolate a predominant pathogen within the "mixed dary" Blood cultures pending.. Name: GARY GORDON Age/Sex: 67/F Attend Dr: Krishna Leary Acct: [id number] Unit: [id number] Status: ADM IN Location: [facility] [place] 249-1 Re02/24/17 Disch: Specimen: [id number] Collected: 02/24/17 Status: COMP Req#: [id number] Received: 02/25/17 Source: NSP Sp Desc : Subm Dr: Krishna Leary MD Ordered: GISELLE MRSA PCR Comments: Collected by Nurse/Unit? Y/N Y Procedure Result Verified Site Microbiology GISELLE MRSA PCR Final 02/25/17 MRSA BY PCR NEGATIVE REFERENCE INTERVAL NEGATIVE X-Rays, CTs and MRIs PROCEDURE: US RENAL SONOGRAM INDICATIONS: Possible Hydronephrosis TECHNIQUE: Real-time scanning was performed of the kidneys and bladder, with image documentation. COMPARISON: [facility], CT, CT KUB, 02/24/2017, 14:19. FINDINGS: Kidneys: Kidneys are normal in size. Right kidney measures 11.3 cm long; left kidney measures 15.6 cm long. Right renal cortical thickness is 1.5 cm; left renal cortical thickness is 1.2 cm. there is a 4.0 x 3.0 x 3.3 cm right renal cyst with mural calcification. This measured 3.6 x 3.0 x 3.3 cm on the study dated 01/21/16. There is severe left hydronephrosis. A cluster of punctate renal calculi are present within the central left renal collecting system. The nonobstructing calcifications are also present within the left lower pole. The proximal left ureter is markedly dilated. Bladder: The bladder is decompressed and a Peacock catheter is present. Miscellaneous: No free pelvic fluid. IMPRESSION: 1. Severe left hydronephrosis with multiple nonobstructing calculi. 2. Right renal cyst with mural calcification. If further characterization is warranted, renal mass protocol CT may be helpful to evaluate for mural nodularity. Dictated by: Carmen Matias M.D. on 02/24/2017 at 18:04 Approved by: Carmen Matias M.D. on 02/24/2017 at 18:09 PROCEDURE: CT KUB ([id number]) INDICATIONS: leukocytosis, h/o stones, UTI TECHNIQUE: Noncontrast 5 mm thick sections acquired from the diaphragms to the symphysis. 5 mm thick coronal and sagittal reformats were then performed. For radiation dose reduction, the following was used: automated exposure control, adjustment of mA and/or kV according to patient size. COMPARISON: [facility], CT, CT KUB, 09/17/2016, 13:17. FINDINGS: Image quality: Excellent. Lung bases: Lung bases are clear. Heart size is normal. Urinary system: Both kidneys are mildly atrophic. The right kidney demonstrates an unchanged exophytic cyst with partial rim calcification. There are several punctate nonobstructing calcifications within the inferior pole. There are unchanged. The left kidney demonstrates approximately 10-12 calcifications throughout the kidney the largest in the posterior aspect of the midpole measuring approximately 10 mm Hounsfield units 376. There are dependent layering calcifications within the renal pelvis, a less prominent when compared to prior exam. There is a distal right ureteral calculus measuring 5 mm, Hounsfield units to 72. There is moderate hydronephrosis and hydroureter on the left. A suprapubic Peacock catheter is present. Once again, there are multiple calcifications within the bladder lumen. Other solid organs: Liver and spleen are normal in size. There is poorly defined questionable low attenuation along the anterior left and right hepatic lobes seen on series 2 image 22. The liver overall demonstrates steatosis. Gallbladder demonstrate a large luminal calcification without wall thickening. No interval change.. Pancreas is normal in contours. No adrenal nodules. Peritoneum and bowel: Unenhanced bowel loops demonstrate normal wall thickness and caliber. No free fluid or air. Nodes and vessels: No retroperitoneal or mesenteric adenopathy by size criteria. Aorta and inferior vena cava are normal in caliber. Abdominal wall: No ventral hernias. Pelvis: No free pelvic fluid. No inguinal hernias or adenopathy. Bones: No suspicious bony lesions. No vertebral body compression fractures. IMPRESSION: 1. Bilateral renal calcifications. 2. Less prominent appearance of calcifications within the left kidney, particularly the layering renal pelvic calcifications, as described above. There is a distal left ureteral calcification measuring 5 mm causing moderate hydronephrosis and hydroureter. 3. Unchanged appearance of Peacock catheter within the bladder and numerous bladder calcifications. 4. Unchanged cholelithiasis. 5. Poorly defined area of questionable low attenuation along the anterior aspect of the liver as described above. This could represent artifact or variability of hepatic steatosis. However, a mass within this region cannot be definitively excluded. Followup with focal ultrasound is recommended. Dictated by: Melody Rea M.D. on 02/24/2017 at 14:28 Approved by: Melody Rea M.D. on 02/24/2017 at 14:35 Assessment & Plan The patient is a pleasant 67-year-old white female with history of multiple sclerosis, atrial fibrillation on Coumadin, hypertension, and insulin-dependent diabetes mellitus who presented to the emergency room department at [facility] brought in in a private vehicle by her complaining of generalized weakness onset 2 days ago. The reason she decided to come in when she did is because she had "foul-smelling urine" according to her . Patient also complained of generalized confusion, nausea, subjective fever, decreased appetite the patient denied abdominal pain, vomiting, chills, flank pain. Patient has had a history of recurrent urinary tract infections previously with very similar symptoms. The patient was evaluated in the emergency room by Dr. Curt Galdamez who felt that the patient had an acute kidney injury and probable urinary tract infection. Incidentally noted that there was a left ureteral stone. Urology was consulted for this after consultation with possible cervicitis or cefuroxime was given in the emergency room. Patient has multiple drug allergies. The patient tolerated the cefuroxime very well. The patient was admitted to the hospital service for further evaluation and treatment. #CALIX[place], postobstructive, POA, still trending down, -avoid renal toxin, i/o, trends cr, -if creatinine further improving tomorrow, likely d/c # Urinary tract infection with sepsis presenting with confusion, nausea and subjective fever and decreased appetite. The primary pathogens at this time appear to be a Proteus species and an Alcaligenes species both of which are sensitive to Rocephin. - Patient has numerous drug allergies (see list) we have decided to treat the patient was cefuroxime which she has tolerated in the past. - changed cefuroxime to ceftriaxone 2 g IV every 24 hours. awaits ID input for home regimen. - Patient tolerated cefuroxime quite well and should also be obtained to tolerate ceftriaxone just fine. - IV hydration # Acute encephalopathy - Secondary to the urinary tract infection. - Continue antibiotics. - Continue hydration # Multiple sclerosis - Patient is bedridden with suprapubic catheter and is unable to move her lower extremities. - She has a constant risk for recurrent infection despite having a suprapubic catheter changed every 2 weeks. She has multiple bladder stones which not all could be removed. - Patient was thought to have a small decubitus ulcer. However, the wound care team sees no evidence of any decubiti. - Continue supportive care. - We will continue physical therapy and occupational therapy. # Atrial fibrillation - Rate appears to be controlled with pacemaker - We will continue Coumadin per pharmacy - Check daily PT/INR, her INR is supratherapeutic today # Nephrolithiasis - Patient had severe hydronephrosis on the left with left ureteral calculi as seen on ultrasound. - Patient is postop day #4 ureteral stent placement on the left. Patient tolerated the procedure well. Patient also had numerous bladder stones found and several of them were removed during the procedure, likely needs outpt follow up with urology. - Continue IV hydration and cefuroxime. We will give another dose of ertapenem today pending urine culture results - Continue Flomax. # History of DVT and pulmonary embolism - Continue Coumadin per pharmacy. # History of MRSA nasal swab. - The repeat nasal swab for MRSA was negative. - Check decubitus ulcer, which is quite small, for culture. This is negative to date # Decreased level of consciousness resident at the time of admission and improved - Likely due to sepsis from the urinary tract infection - We will have speech therapy evaluate the patient. Disposition: likely tomorrow home with HH dvt ppx: systemic AC GI Prophylaxis: Proton Pump Inhibitor VTE Prophylaxis: Theraputic Anticoag with Warfarin Resuscitation Status: CPR: Attempt Resuscitation Time spent 35min Kierra Neil MD Mar 01, 2017 10:50
--- NOTE | 2017-03-01 11:35 | NUR ---
Wound Care [facility] Patient seen for follow up skin check. Patient with no evidence of redness to sacrum/coccyx. Sacral Mepilex placed for skin protection. Instructed patient in importance of continued turning q2 hours. RN arrives to reposition at end of wound care assessment. Patient positioned toward right following skin assessment. Nursing to cont q2 hour turning schedule. Wound care to follow up as needed.
--- NOTE | 2017-03-01 13:52 | PCM.PHAPRO ---
Progress WARFARIN DOSING PER PHARMACY [facility] DFF Date Feb 25-Feb 26-Jan 27-Feb 2-Feb 3-Feb INR 1.12 1.44 2.64 3.93 3.95 2.74 INR change 0.32 1.2 1.29 0.02 -1.21 Warf Dose 5 mg 5 mg hold HOLD HOLD 3 MG INR therapeutic following held doses past 3 evenings. Will initiate warfarin at lower dose with 3mg. Will continue to monitor. Ed Dominguez, PharmD Ed Dominguez Mar 01, 2017 13:52
[2017-03-01] MEDS: 0.9% Sodium Chloride 1,000 ML IV SCH ×2 (14:08→14:31)
--- NOTE | 2017-03-01 14:53 | NUR ---
Turning/Confusion Spoke with wound care after consult, and they stressed importance of turning patient Q2. I assured her that has been happening during the shift. Pt has moments of confusion, and is only orientated to person. After talking with patient she will clear up, and know where she is. Pt to discharge tomorrow per MD.
--- NOTE | 2017-03-01 18:26 | PROG NOTE ---
[address] [address] PROGRESS NOTE PATIENT: GARY GORDON : 1950 MR#: [id number] ADMIT: 02/24/2017 JOB ID: [id number] DATE: 03/01/2017 INTERVAL HISTORY: Over the weekend, the patient says she has felt fine. No fevers. No chills. No sweats. No cough, shortness of breath or abdominal pain. She continues of course to have the suprapubic catheter. PHYSICAL EXAMINATION: Reveals an afebrile, comfortable woman. Temp 36.6. She has been afebrile throughout this hospital stay. Pulse 72, respiratory rate 16, blood pressure 124/68. She has no skin rash. Her mentation seems at baseline. Lungs clear anteriorly with decreased excursion bilaterally. No new cardiac murmurs. Abdomen soft and nontender. Suprapubic is present. LABORATORIES: Include a white count which has normalized to 7400, hematocrit 30, platelet count 259, creatinine 1.12, which is steadily improving from 2.3 when she came in. Procalcitonin much improved from a high of 50-51 when she came in, now down to 2.69. Recall that urinalysis actually did not have white cells on the way in surprisingly. Blood cultures were negative but urine grew at least two different organisms, including Alcaligenes and Proteus. These organisms are both susceptible to ceftriaxone and Dr. Leary made the switch to ceftriaxone from cefuroxime because of this. IMPRESSION: This is an unfortunate woman with multiple sclerosis and a history of multiple complicated urinary tract infections. This one was associated with a left ureteral stone for which the patient underwent cystoscopy and with a left ureteral stent placement on February 26. Of interest, the patient's procalcitonin had started to fall and her overall condition seemed to be improving while she was receiving cefuroxime which would treat the Proteus but not the Alcaligenes. I think this makes it much more likely that the Proteus is the main bug here rather than the Alcaligenes, but nonetheless, since both were isolated and they can be pathogens, it is reasonable to continue with a course of ceftriaxone as it will cover both these organisms. RECOMMENDATIONS: 1. I would continue with IV ceftriaxone and the current dose of 2 g q.12 h. through March 10 to complete 10 days of effective therapy for both organisms. 2. I have written home IV antibiotic orders to this end. The ceftriaxone can be given either through peripheral lines or a midline as needed. I do not see the need for a PICC as we are only going to be going about nine more days. 3. I have asked that repeat labs be drawn on March 08 and sent to me just to make sure the patient does not suffer neutropenia or any other untoward hematologic complication of the ceftriaxone.
[2017-03-02 02:22] VITALS: BP 134/66; PULSE 79; RESP 16; O2SAT 95
--- NOTE | 2017-03-02 03:43 | NUR ---
Mentation Pt has been A&Ox3 all night, no forgetful or confused periods noted. Pt understands needs for q2 turning and has been compliant with this despite needing to be woken. Pt reports comfort and is appreciative of care, eager to d/c.
[2017-03-02 06:05] VITALS: BP 141/66; PULSE 77; RESP 16; O2SAT 95
[2017-03-02 07:14] LABS: INR 2.04 ratio
[2017-03-02] MEDS: Pantoprazole 40 mg ER24 Tablet PO SCH (07:48)
[2017-03-02] MEDS: Potassium Chloride 20 mEq SR Tablet PO SCH (07:49)
[2017-03-02] MEDS: Insulin Human NPH 100 Unit/mL 3 mL Inj SUBQ SCH ×2 (07:51→11:42)
--- NOTE | 2017-03-02 08:35 | PCM.PHAPRO ---
Progress Date of Service: Mar 02, 2017 WARFARIN DOSING Laboratory Tests Test 03/02/17 06:15 Prothrombin Time 22.2sec (8.1-12.5) Prothromb Time International Ratio 2.04ratio Sodium Level 139mEq/L (134-144) Potassium Level 4.1mEq/L (3.5-5.2) Chloride Level 110mEq/L (97-108) Carbon Dioxide Level 15mmol/L (18-29) Blood Urea Nitrogen 16mg/dL (8-27) Creatinine 1.04mg/dL (0.57-1.00) Estimat Glomerular Filtration Rate 75mL/min (>59) Glucose Level 122mg/dL (60-99) Calcium Level 8.5mg/dL (8.5-10.1) Total Bilirubin 0.2mg/dL (0.0-1.2) Aspartate Amino Transf (AST/SGOT) 31U/L (0-50) Alanine Aminotransferase (ALT/SGPT) 61U/L (0-32) Alkaline Phosphatase 287U/L (25-165) Total Protein 5.5g/dL (6.4-8.4) Albumin 2.7g/dL (3.4-5.0) Microbiology 02/24/17 Blood Culture - Final, Complete NO GROWTH AFTER 5 DAYS 02/24/17 MRSA (PCR) - Final, Complete 02/24/17 Urine Culture - Final, Complete Proteus Mirabilis Alcaligenes Species (Faecalis) Mixed Urogenital Donna 02/26/17 Gram Stain - Final, Resulted 02/26/17 Culture & Sensitivity - Preliminary, Resulted Insufficient growth, culture is reinc... Date Feb 25-Feb 26-Jan 27-Feb 28-Mar 01-Mar 02-Feb INR 1.12 1.44 2.64 3.93 3.95 2.74 2.04 INR change 0.32 1.2 1.29 0.02 -1.21 -0.7 Warf Dose 5 mg 5 mg hold HOLD HOLD 3 MG 4 MG Tiki Collado Pharm.D Mar 02, 2017 08:35
[2017-03-02 09:33] VITALS: BP 130/73; PULSE 79; RESP 16; O2SAT 94
[2017-03-02] MEDS: 0.9% Sodium Chloride 1,000 ML IV SCH (10:09)
[2017-03-02] MEDS: cefTRIAXone Inj 2,000 MG in Dextrose 5% Minibag Plus 50 ML IV SCH (10:10)
[2017-03-02 10:22] VITALS: PULSE 78
--- NOTE | 2017-03-02 10:38 | PROG NOTE ---
[address] [address] PROGRESS NOTE PATIENT: GARY GORDON : 1950 MR#: [id number] ADMIT: 02/24/2017 JOB ID: [id number] DATE: 03/02/2017 INFECTIOUS DISEASE FOLLOW UP NOTE: REASON FOR FOLLOWUP: Complicated urinary tract infection in a patient with multiple sclerosis. INTERVAL HISTORY: Overnight, the patient has had no fevers, chills or sweats. She denies cough or shortness of breath. No abdominal complaint. No problems with her antibiotics. PHYSICAL EXAMINATION: Reveals an afebrile woman. Temperature 36.9, pulse 79, blood pressure 130/73. She is saturating well on room air. Lungs are clear. Abdomen soft and nontender. No skin rash noted. She has a peripheral IV which is functioning well. LABORATORIES: Include a white count yesterday 7400, not repeated today. Creatinine today actually is 1.04, which is steadily improving. Alk phos is down to 287. ALT down to 61 and procalcitonin yesterday 2.69 down from 51. Recall that the urine grew Proteus and Alcaligenes, both sensitive to ceftriaxone which she is tolerating. IMPRESSION: This patient is doing well and is reaching a point where she might reasonably be discharged. She has a complicated urinary tract infection and I think Proteus is the main bug though there could be some contribution from Alcaligenes in terms of her initial presentation with leukocytosis and very elevated procalcitonin. RECOMMENDATIONS: 1. Will continue with ceftriaxone and the dose should be 2 g q.24 hours and yesterday's note in an error said q.12, but the dose is q.24 hours of ceftriaxone through March 10 to complete 10 days of therapy for both organisms. 2. I have written home IV orders and discussed this case in detail with [facility] as well as a socially responsible investment adviser today to make sure that we can set this up at home. 3. I would prefer to use peripheral IVs rather than a PICC as we only need therapy for eight or so more days. This patient has had a lot of medical care during her struggle with multiple sclerosis and I am afraid that if we use too many midlines and PICCs, we will end up without good venous access in the future and she only needs one more week of a once a day antibiotic, so hopefully the peripheral IVs will work and I have discussed this with the [facility] team. 4. If [facility] cannot start a peripheral IV, she can come back to the [facility] and have an IV started by our team as needed. Also note ID will be signing off today.
--- NOTE | 2017-03-02 10:51 | PCM.DIMED ---
Discharge Instructions Date of Service Mar 02, 2017 Dates of Hospitalization Feb 24, 2017 at 14:38 Discharge Diagnosis Discharge Diagnosis sepsis secondary to Urinary tract infection complicated by Nephrolithiasis s/p ureteral stent septic encephalopathy CALIXTO Medication Instructions Continue Ceftriaxone 2g q12h until 03/10 Diet No restrictions Activity Home Health Phyical Therapy Call your provider Fever or Chills Patient Instructions You were hospitalized with infected kidney stones, required stent placed in your ureter. You were also treated with antibiotics. Please follow up with as scheduled, You need to repeat blood works including CBC, CMP, procalcitonin on 03/08 then see Please follow medicine instruction, antibiotics well be set up at home, managed by home health service. The Pt has been set up with the resumption of [facility] (RN/PT/OT/bath aid) and home infusions through [facility] for IV ABx through Feb. Follow-up Provider: Tali Menjivar MD Follow-up with PCP in: 2 weeks Kierra Neil MD Mar 02, 2017 10:51
--- NOTE | 2017-03-02 14:14 | NUR ---
Discharge Pt discharged from unit, accompanied by and daughter. Homa lift used to place pt in her own electric wheelchair. Pt has her own transportation home. Home health and the infusions have been contacted/set up. Peripheral IV left in place for infusion tomorrow. Pt and family provided with information on diagnosis, follow up, and signs to watch for. Pt would prefer to schedule her own appointments with PCP and Dr. Marroquin. Pt escorted off floor to her van.
--- NOTE | 2017-03-02 14:51 | NUR ---
Social Work Note - Discharge: D/A: The Pt is a 67 y/o female that is now on day 6 of hospitalization for CALIXTO. ID consult completed, recommending home IV ABx through Feb. SW met with the Pt, explored IV ABx needs. Home Infusion list provided, no preference given. SW referred to rotating calendar, referral placed to [facility]. Access given. SW informed by [facility] that the ABx dose is incorrect in the discharge order, SW contacted MD and requested document to be updated for correct dose. [facility] also requested updated order from ID, paperwork faxed. Pt also to discharge home with resumed [facility] (RN/PT/OT/bath aide). SW placed call to [facility] regarding resumption of services and CBC request from ID for Feb, [facility] aware of pending discharge. The Pt denies any needs at this time, SW will continue to follow. The Pt reports that she will contact her family about discharge and transportation home. P: The Pt will likely discharge home today with resumed [facility] (RN/PT/OT/bath aide) and [facility] infusion through Feb. Family to provide POV transportation. The Pt denies any other needs at this time. Macie Rodriguez, PHOTOGRAPHIC INTELLIGENCE OFFICER Partner Integration Planner JOSUÉ Valdez
--- NOTE | 2017-03-03 12:31 | PCM.DC.MED ---
Discharge Summary Date of Service Mar 02, 2017 Dates of Hospitalization Date of Hospital Admission Feb 24, 2017 at 14:38 Date of Discharge: Mar 02, 2017 Providers: Admitting Physician: Krishna Leary MD Primary Care Physician: Tali Menjivar MD Attending Physician: Krishna Leary MD Diagnosis at Time of Discharge Diagnosis at Time of Discharge Sepsis secondary to Urinary tract infection Neprolithiasis with severe hydronephrosis on the left s/p ureteral stent Septic encephalopathy CALIXTO chronic, stable # Multiple sclerosis, # Atrial fibrillation, # History of DVT and pulmonary embolism # History of MRSA nasal swab, Consultations ID, Urology Procedures XRay, CTs & MRIs PROCEDURE: US RENAL SONOGRAM INDICATIONS: Possible Hydronephrosis TECHNIQUE: Real-time scanning was performed of the kidneys and bladder, with image documentation. COMPARISON: [facility], CT, CT KUB, 02/24/2017, 14:19. FINDINGS: Kidneys: Kidneys are normal in size. Right kidney measures 11.3 cm long; left kidney measures 15.6 cm long. Right renal cortical thickness is 1.5 cm; left renal cortical thickness is 1.2 cm. there is a 4.0 x 3.0 x 3.3 cm right renal cyst with mural calcification. This measured 3.6 x 3.0 x 3.3 cm on the study dated 01/21/16. There is severe left hydronephrosis. A cluster of punctate renal calculi are present within the central left renal collecting system. The nonobstructing calcifications are also present within the left lower pole. The proximal left ureter is markedly dilated. Bladder: The bladder is decompressed and a Peacock catheter is present. Miscellaneous: No free pelvic fluid. IMPRESSION: 1. Severe left hydronephrosis with multiple nonobstructing calculi. 2. Right renal cyst with mural calcification. If further characterization is warranted, renal mass protocol CT may be helpful to evaluate for mural nodularity. Dictated by: Carmen Matias M.D. on 02/24/2017 at 18:04 Approved by: Carmen Matias M.D. on 02/24/2017 at 18:09 PROCEDURE: CT KUB ([id number]) INDICATIONS: leukocytosis, h/o stones, UTI TECHNIQUE: Noncontrast 5 mm thick sections acquired from the diaphragms to the symphysis. 5 mm thick coronal and sagittal reformats were then performed. For radiation dose reduction, the following was used: automated exposure control, adjustment of mA and/or kV according to patient size. COMPARISON: [facility], CT, CT KUB, 09/17/2016, 13:17. FINDINGS: Image quality: Excellent. Lung bases: Lung bases are clear. Heart size is normal. Urinary system: Both kidneys are mildly atrophic. The right kidney demonstrates an unchanged exophytic cyst with partial rim calcification. There are several punctate nonobstructing calcifications within the inferior pole. There are unchanged. The left kidney demonstrates approximately 10-12 calcifications throughout the kidney the largest in the posterior aspect of the midpole measuring approximately 10 mm Hounsfield units 376. There are dependent layering calcifications within the renal pelvis, a less prominent when compared to prior exam. There is a distal right ureteral calculus measuring 5 mm, Hounsfield units to 72. There is moderate hydronephrosis and hydroureter on the left. A suprapubic Peacock catheter is present. Once again, there are multiple calcifications within the bladder lumen. Other solid organs: Liver and spleen are normal in size. There is poorly defined questionable low attenuation along the anterior left and right hepatic lobes seen on series 2 image 22. The liver overall demonstrates steatosis. Gallbladder demonstrate a large luminal calcification without wall thickening. No interval change.. Pancreas is normal in contours. No adrenal nodules. Peritoneum and bowel: Unenhanced bowel loops demonstrate normal wall thickness and caliber. No free fluid or air. Nodes and vessels: No retroperitoneal or mesenteric adenopathy by size criteria. Aorta and inferior vena cava are normal in caliber. Abdominal wall: No ventral hernias. Pelvis: No free pelvic fluid. No inguinal hernias or adenopathy. Bones: No suspicious bony lesions. No vertebral body compression fractures. IMPRESSION: 1. Bilateral renal calcifications. 2. Less prominent appearance of calcifications within the left kidney, particularly the layering renal pelvic calcifications, as described above. There is a distal left ureteral calcification measuring 5 mm causing moderate hydronephrosis and hydroureter. 3. Unchanged appearance of Peacock catheter within the bladder and numerous bladder calcifications. 4. Unchanged cholelithiasis. 5. Poorly defined area of questionable low attenuation along the anterior aspect of the liver as described above. This could represent artifact or variability of hepatic steatosis. However, a mass within this region cannot be definitively excluded. Followup with focal ultrasound is recommended. Dictated by: Melody Rea M.D. on 02/24/2017 at 14:28 Approved by: Melody Rea M.D. on 02/24/2017 at 14:35 Brief History HPI obtained by on 02/24 The patient is a pleasant 67-year-old white female with history of multiple sclerosis, atrial fibrillation on Coumadin, hypertension, and insulin-dependent diabetes mellitus who presented to the emergency room department at [facility] brought in in a private vehicle by her complaining of generalized weakness onset 2 days ago. The reason she decided to come in when she did this because she had "foul-smelling urine" according to her . Patient also complained of generalized confusion, nausea, subjective fever, decreased appetite the patient denied abdominal pain, vomiting, chills, flank pain. Patient has had a history of recurrent urinary tract infections previously with very similar symptoms. The patient was evaluated in the emergency room by Dr. Curt Galdamez who felt that the patient had an acute kidney injury and probable urinary tract infection. Incidentally noted that there was a left ureteral stone. Urology was consulted for this after consultation with possible cervicitis or cefuroxime was given in the emergency room. Patient has multiple drug allergies. The patient tolerated the cefuroxime very well. The patient was admitted to the hospital service for further evaluation and treatment. Hospital Course 1Urinary tract infection with sepsis presenting with confusion, nausea and subjective fever and decreased appetite. The primary pathogens at this time appear to be a Proteus species and an Alcaligenes species both of which are sensitive to Rocephin. Patient has numerous drug allergies (see list) we have decided to treat the patient was cefuroxime which she has tolerated in the past. abx was changed cefuroxime to ceftriaxone 2 g IV every 24 hours. Plan is to continue Ceftriaxone until 03/10 to finish 10days course per ID. 2Nephrolithiasis, POA, Patient had severe hydronephrosis on the left with left ureteral calculi as seen on ultrasound. Left ureteral stent was placed by Urology , patient was able to void well via suprapubic cath. 3Acute encephalopathy Secondary to the urinary tract infection, resolved with treatment 4.CALIXTO, postobstructive, creatinine further trended down to 1.04 upon discharge. chronic, stable # Multiple sclerosis, Patient is bedridden with suprapubic catheter and is unable to move her lower extremities. no signs of MS flare during hospitalization. # Atrial fibrillation, Rate appears to be controlled with pacemaker. continued Coumadin per pharmacy # History of DVT and pulmonary embolism, continued Coumadin per pharmacy. # History of MRSA nasal swab, The repeat nasal swab for MRSA was negative., checked decubitus ulcer, which is quite small, for culture. This is negative to date Exam Vital Signs (Last) Date Time Temp Pulse Resp B/P Pulse Ox O2 Delivery O2 Flow Rate FiO2 03/02/17 10:22 78 03/02/17 09:33 36.9 16 130/73 94 Room Air 02/26/17 16:15 10 Exam NAD, comfortably laying down on the bed no JVD, MMM, no LAD RRR, nl s1, s2 no mrg CTAB, no w,c S,ND,NT,normoactive BS+ flacid BLE, suprapubic cath, ostomy bag in place, no surrounding erythema/ tendernes Test 02/24/17 12:14 02/24/17 12:15 02/24/17 12:40 02/24/17 13:13 Urine Color Straw (YELLOW) Urine Appearance Cloudy (CLEAR,HAZY) Urine pH 8.5 (5.0-8.0) Urine Specific [place] 1.010 (1.003-1.035) Urine Protein 100mg/dL (NEG,TRACE) Urine Glucose (UA) Negativemg/dL (NEGATIVE) Urine Ketones Tracemg/dL (NEGATIVE) Urine Occult Blood Moderate (NEGATIVE) Urine Nitrite Positive (NEGATIVE) Urine Bilirubin Negative (NEGATIVE) Urine Urobilinogen Normalmg/dL (NORMAL) Urine Leukocyte Esterase Large (NEGATIVE) Urine RBC 3-10/hpf (0-2) Urine WBC 0-5/hpf (0-5) Urine Epithelial Cells Occasional/hpf (NONE-MOD) Urine Crystals Triple phosphate Urine Bacteria Many/hpf (NONE-FEW) Urine Hyaline Casts None/lpf (NONE) Urine Granular Casts None seen (NONE SEEN) Urine Waxy Casts None seen (NONE SEEN) Urine Red Blood Cell Casts None seen (NONE SEEN) Urine White Blood Cell Casts None seen (NONE SEEN) Urine Mucus None seen (None Seen) Urine Trichomonas None seen (NONE SEEN) Urine Yeast None (NONE SEEN) Urinalysis Comment None Urine Culture Reflexed Indicated Hold Urine Received (Received) Lactic Acid Level 1.8mmol/L (0.4-2.0) Hold [place] Top Tube Received (Received) Ketones Negative (Negative) Hold Purple Top Tube Received (Received) Hold Blue Top Tube Received (Received) Hold [place] Top Tube Received (Received) Test 02/25/17 06:15 02/26/17 06:41 03/01/17 06:05 03/02/17 06:15 Thyroid Stimulating Hormone (TSH) 1.140uIU/mL (0.450-4.500) Hemoglobin A1c 8.1% (4.8-5.6) White Blood Count 7.4th/mm3 (3.8-10.1) Red Blood Count 3.35mil/mm3 (3.90-5.20) Hemoglobin 9.3g/dL (12.0-15.6) Hematocrit 29.6% (35.0-46.0) Mean Corpuscular Volume 88.4fL (81-100) Mean Corpuscular Hemoglobin 27.8pg (27.0-35.0) Mean Corpuscular Hemoglobin Concent 31.4% (32.0-37.0) Red Cell Distribution Width 15.9% (12.3-15.4) Platelet Count 259bil/L (150-400) Neutrophils (%) (Auto) 64% (40-74) Lymphocytes (%) (Auto) 20% (14-46) Monocytes (%) (Auto) 7% (4-12) Eosinophils (%) (Auto) 3% (0-5) Basophils (%) (Auto) 1% (0-3) Band Neutrophils % 4% (1-5) Magnesium Level 1.6mg/dL (1.6-2.6) Procalcitonin 2.69ng/mL (0.00-0.08) Prothrombin Time 22.2sec (8.1-12.5) Prothromb Time International Ratio 2.04ratio Sodium Level 139mEq/L (134-144) Potassium Level 4.1mEq/L (3.5-5.2) Chloride Level 110mEq/L (97-108) Carbon Dioxide Level 15mmol/L (18-29) Blood Urea Nitrogen 16mg/dL (8-27) Creatinine 1.04mg/dL (0.57-1.00) Estimat Glomerular Filtration Rate 75mL/min (>59) Glucose Level 122mg/dL (60-99) Calcium Level 8.5mg/dL (8.5-10.1) Total Bilirubin 0.2mg/dL (0.0-1.2) Aspartate Amino Transf (AST/SGOT) 31U/L (0-50) Alanine Aminotransferase (ALT/SGPT) 61U/L (0-32) Alkaline Phosphatase 287U/L (25-165) Total Protein 5.5g/dL (6.4-8.4) Albumin 2.7g/dL (3.4-5.0) Microbiology Results Urine culture is nonrevealing. Dr. Marroquin and I have independently called the microbiology lab and asked them to try to isolate a predominant pathogen within the "mixed dary" Blood cultures pending.. Name: GARY GORDON Linus Age/Sex: 67/F Attend Dr: Krishna Leary Acct: [id number] Unit: [id number] Status: ADM IN Location: [facility] 249-1 Re02/24/17 Disch: Specimen: [id number] Collected: 02/24/17 Status: ENOCH Re#: [id number] Received: 02/25/17 Source: NSP Sp Desc : Subm Dr: Krishna Leary MD Ordered: GISELLE MRSA PCR Comments: Collected by Nurse/Unit? Y/N Y Procedure Result Verified Site Microbiology GISELLE MRSA PCR Final 02/25/17 MRSA BY PCR NEGATIVE REFERENCE INTERVAL NEGATIVE Discharge Medications Discharge Medications Baclofen (Baclofen) 20 Mg Tablet 20 MG PO BID (Reported) Levothyroxine (Levothyroxine) 112 Mcg Tablet 112 MCG PO DAILY (Reported) Magnesium Oxide (Magnesium Oxide) 400 Mg Tablet 400 MG PO DAILY (Reported) Multivits-Min/FA/Lycopene/Lut (Centrum Silver Tablet) 1 Each Tablet 1 EACH PO DAILY (Reported) NPH, Human Insulin Isophane (HUMulin-N U100 Insulin Vial) 100 Unit/1 Ml Vial 35 UNIT SUBQ QAM (Reported) NPH, Human Insulin Isophane (HUMulin-N U100 Insulin Vial) 100 Unit/1 Ml Vial 45 UNIT SUBQ QPM (Reported) Niacin (Niacin) 500 Mg Capsule.er 500 MG PO BID (Reported) Potassium Chloride (Potassium Chloride) 20 Meq Tab.er.prt 20 MEQ PO DAILY ( Reported) TAKE WITH FOOD Tamsulosin (Flomax) 0.4 Mg Capsule 0.4 MG PO HS (Reported) Warfarin Sodium (Warfarin Sodium) 4 Mg Tablet 4 MG PO DAILY (Reported) As needed Insulin Lispro (HumaLOG U100 Insulin Pen) 100 Unit/1 Ml Insuln.pen 5-10 UNIT SUBQ ACHS PRN PRN hyperglycemia (Reported) sliding scale insulin Nystatin (Nystatin) 15 Gm Powder 1 APPLIC TP TID PRN PRN rash (Reported) Additional med instructions Continue Ceftriaxone 2g q12h until 03/10 Followup Plan Disposition: home with home health Discharge Diet: No restrictions Discharge Activity: Home Health Phyical Therapy Patient Instructions You were hospitalized with infected kidney stones, required stent placed in your ureter. You were also treated with antibiotics. Please follow up with as scheduled, You need to repeat blood works including CBC, CMP, procalcitonin on 03/08 then see Please follow medicine instruction, antibiotics well be set up at home, managed by home health service. The Pt has been set up with the resumption of [facility] (RN/PT/OT/bath aid) and home infusions through [facility] for IV ABx through Feb. Follow-up Provider: Tali Menjivar MD Follow-up with PCP in: 2 weeks Time spent 65min Kierra Neil MD Mar 03, 2017 12:31
[2017-05-07] MEDS ORDERED: SODI126M NS (08:11)
[2017-05-07] MEDS ORDERED: DIPH1TAB PO (08:11)
== END 2017-03-02 14:15 | disposition home health service (06) | DRG 871 ==
LOC: SED 11:25 → MOC 14:38
PROVIDERS: ADMIT Internal Medicine Infectious Disease; ATTEND Internal Medicine Infectious Disease
PROC: 0TCB8ZZ Extirpation of Matter from Bladder, Via Natural or Artificial Opening Endoscopic (ICD-10-PCS; 2017-02-26)
PROC: 0T778DZ Dilation of Left Ureter with Intraluminal Device, Via Natural or Artificial Opening Endoscopic (ICD-10-PCS; principal; 2017-02-26 14:00)
DX: A41.9 Sepsis, unspecified organism (principal); G93.40 Encephalopathy, unspecified; N17.9 Acute kidney failure, unspecified; N39.0 Urinary tract infection, site not specified; G82.20 Paraplegia, unspecified; N13.6 Pyonephrosis; G35 Multiple sclerosis; L89.159 Pressure ulcer of sacral region, unspecified stage; Z74.01 Bed confinement status; I48.91 Unspecified atrial fibrillation; Z79.01 Long term (current) use of anticoagulants; I10 Essential (primary) hypertension; E11.9 Type 2 diabetes mellitus without complications; Z79.4 Long term (current) use of insulin; E03.9 Hypothyroidism, unspecified; Z95.0 Presence of cardiac pacemaker; Z93.3 Colostomy status; N32.0 Bladder-neck obstruction; N21.0 Calculus in bladder; Z86.711 Personal history of pulmonary embolism; Z86.718 Personal history of other venous thrombosis and embolism; Z86.14 Personal history of Methicillin resistant Staphylococcus aureus infection; Z93.6 Other artificial openings of urinary tract status; B96.4 Proteus (mirabilis) (morganii) as the cause of diseases classified elsewhere; B96.89 Other specified bacterial agents as the cause of diseases classified elsewhere

== ENCOUNTER 2017-05-10 07:07 | Day surgery (SDC) | payer MEDICARE ==
[~2017-05-10] VITALS: Ht 165.1 cm; Wt 77.0 kg
[2017-05-10] VITALS (10 sets, daily range): BP systolic 132–182; BP diastolic 52–72; PULSE 68–110; RESP 10–18; O2SAT 95–99
[~2017-05-10 07:07] MED LIST changes: +Ceftriaxone 1,000 mg/50 mL D5W Minibag Plus IV ONE; +DIPH1TAB PO; -INSU100I13 SUBQ; +Lactated Ringer's 1,000 ML IV ONE; -MAGN400T4 PO; -MERO1VIA IV; -MUPI1OIN6 TP; +NPH,100V11 SUBQ; +SODI126M NS; +TAMS0.4C98 PO; -VANC125C3 PO; -WARF3TAB7 PO; +WARF4TAB6 PO
[2017-05-10] MEDS ORDERED: fentaNYL-PF 50 mCg/mL 2 mL Inj ONE (08:00)
[2017-05-10] MEDS ORDERED: Neostigmine 1 mg/mL 10 mL Inj ONE (08:00)
[2017-05-10] MEDS ORDERED: EPHEDrine/NS 5 mg/mL 5 mL Syringe ONE (08:00)
[2017-05-10] MEDS ORDERED: Ondansetron 2 mg/mL 2 mL Inj ONE (08:00)
[2017-05-10] MEDS ORDERED: Propofol 10,000 mCg/mL 20 mL Inj ONE (08:00)
[2017-05-10] MEDS ORDERED: Rocuronium 10 mg/mL 5 mL Inj ONE (08:00)
[2017-05-10] MEDS ORDERED: Glycopyrrolate 0.2 MG/ML 1mL Inj ONE (08:00)
[2017-05-10 08:26] LABS: INR 1.1 ratio
--- NOTE | 2017-05-10 08:41 | PCM.HPANE ---
Patient Data Surgeon Admitting Provider: Attending Provider:Leigha Arora MD Primary Care Physician:Tali Menjivar MD Other Provider:Janet Reidingham Anesthesia Reason for Visit Left Ureteral Stone, Bladder Stone Ht/WT & BMI Height (Feet): 5 Height (Inches): 5 Weight (Kilograms): 77 Body Mass Index 28.00 Allergies Coded Allergies: metronidazole (Verified Allergy, Severe, N/V, 05/07/17) Cephalosporins (Verified Allergy, Unknown, UNKNOWN (IS TAKING ORAL CEFTIN) , 05/07/17) Quinolones (Verified Allergy, Unknown, UNKNOWN Reaction is to Cipro, ) ciprofloxacin (Verified Allergy, Unknown, 05/07/17) levofloxacin (Verified Allergy, Unknown, UNKNOWN, 05/07/17) metoclopramide HCl (Verified Allergy, Unknown, UNKNOWN, 05/07/17) nitrofurantoin (Verified Allergy, Unknown, UNKNOWN, 05/07/17) scopolamine (Verified Allergy, Unknown, UNKNOWN, 05/07/17) trimethoprim (Verified Allergy, Unknown, TONGUE SWELLING, 05/07/17) Awlnrzw-Qei-Foz Reductase Inhibitor (Verified Adverse Reaction, Severe, ELEVATED LIVER ENZYMES, 05/07/17) Sulfa (Sulfonamide Antibiotics) (Verified Adverse Reaction, Severe, NUMB MOUTH, 05/07/17) Uncoded Allergies: HOSPITAL LINENS (Allergy, Unknown, UNKNOWN, 01/10/14) PLASTIC TAPE (Adverse Reaction, Severe, SKIN IRRITATION, BLISTERS, 01/10/14) Past Anesthesia History Anesthesia History: Positive for:: Abnormal Airway (pt describes awake intubation, last few anesthetics at [facility] c/ glidescope), Anesthesia Reactions ( DIFFICULT INTUBATIONS), Difficult Intubation, Denies:: Malignant Hyperthermia Diabetes History Hx Diabetes?: Yes Type of Diabetes: Type II Glycemic Control: Insulin Dependent MRSA MRSA: Yes Medications Blood Thinner: Coumadin Hypertension Medication: No Home Meds Incl Beta Cathryn: No Reported Medications Sodium Chloride (Saline Nasal Mist)126 Ml Qdto519 Ml NS DAILY PRN PRN 05/07/17 Diphenoxylate/Atropine 2.5-0.025 mg (Lomotil 2.5-0.025 mg)1 Each Tablet1 Tablet PO Q8H PRN PRN 05/07/17 Tamsulosin (Flomax)0.4 Mg Capsule0.4 Mg PO HS 3/29/17 NPH, Human Insulin Isophane (HUMulin-N U100 Insulin Vial)100 Unit/1 Ml Vial45 Unit SUBQ QPM 02/24/17 NPH, Human Insulin Isophane (HUMulin-N U100 Insulin Vial)100 Unit/1 Ml Vial35 Unit SUBQ QAM 02/24/17 Warfarin Sodium 4 Mg Tablet4 Mg PO DAILY 02/24/17 Potassium Chloride 20 Meq Tab.er.prt20 Meq PO DAILY TAKE WITH FOOD 09/17/16 Nystatin 15 Gm Powder1 Applic TP TID PRN rash 09/17/16 Levothyroxine 112 Mcg Dlecro176 Mcg PO DAILY For Thyroid Replacement 09/17/16 Baclofen 20 Mg Hausqj54 Mg PO BID 09/07/15 Insulin Lispro (HumaLOG U100 Insulin Pen)100 Unit/1 Ml Insuln.pen5-10 Unit SUBQ ACHS PRN hyperglycemia sliding scale insulin 08/22/14 Niacin 500 Mg Capsule.er500 Mg PO BID 08/22/14 Multivits-Min/FA/Lycopene/Lut (Centrum Silver Tablet)1 Each Tablet1 Each PO DAILY 03/16/14 Discontinued Reported Medications Magnesium Oxide 400 Mg Uetidf961 Mg PO DAILY 10/19/14 History History of ENT Problems?: Yes HEENT History: Positive for:: Abnormal Airway (pt describes awake intubation, last few anesthetics at [facility] c/ glidescope) Difficult Intubation Denies:: Cataracts Dysphagia (hx aspiration pneumonia) Hearing Problem Sinus Problem TMJ Denture Type: None Teeth Condition: Tooth Decay Hx of Heart Problems?: Yes Cardiovascular History: Positive for:: Atrial Fibrillation (SVT 2002) Cardiac Surgery (S/P PACEMAKER 12/2015) Edema Hypertension (HYPERLIPIDEMIA) 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) Pacemaker (placed 12/2015 DDD-R MEDTRONIC) Thrombophlebitis (1994 DVT, HX PE W/ IVC FILTER) Denies:: Chest Pain Congestive Heart Failure Heart Murmur (ECHO 12/2015 EF 60-65%) Valvular Heart Disease Other Cardiac History: 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, orders in paper chart (no magnet needed) Hx of Respiratory Problem?: Yes Respiratory History: Positive for:: Dyspnea (PARK) Pneumonia (hx aspiration pneumonia) Pulmonary Embolism (Hx of S/P BROOK FILTER) Denies:: Asthma COPD Chest Surgery Emphysema Hemoptysis Tuberculosis Use of C-PAP Machine (SNORES) Hx Neurologic Problems?: Yes Neurological History: Positive for:: Multiple Sclerosis (unable to use legs, wheelchair bound) Denies:: Alzheimer's Disease CVA Dementia Dizziness Headaches Parkinson's Disease Seizures Other Neurological Pertinent: CAUDA EQUINA SYNDROME-NEUROGENIC BLADDER, MIN MOVEMENT LE,B/L FOOT DROP, WEAKENED UE Hx of GI Problems?: Yes Other GI Pertinent History: S/P COLON RESECTION, ILEOSTOMY Hx of Problems?: Yes Genitourinary History: Positive for:: Kidney Stones (LT KIDNEY/BLADDER STONES= CURRENT PROBLEM S/P CYSTO,LT STENT ) Urinary Tract Infection (Chronic condition. Hx of urosepsis) Denies:: HX of Hemodialysis HX of Peritoneal Dialysis: No Other Pertinent History: S/P SUPRAPUBIC CATH CAUDA EQUINA SYNDROME W/ NEUROGENIC BLADDER Female Hx: Positive for:: Problems with Breasts? (S/P RT BREAST BX, MASTECTOMY FOR CA) Denies:: Currently Endometriosis Pelvic Inflammatory Skin History: Positive for:: Pressure Ulcers (heels,buttocks,sacrum,) Denies:: History Skin Disorders? Hx Musculoskeletal Problems?: Yes Musculoskeletal History: Denies:: Back Injury Joint Replacement Musculoskeletal Trauma Hx of Psycho/Social Problems?: No Psycho Social History: Denies:: Anxiety Bipolar Disorder Hx Depression Suicide Attempt Hx Surgeries?: Yes (colostomy placement, mastectomy, suprapubic cath,CYSTO/ STENT,IVC, Pacemaker) Hx Any Other Health Problems?: Yes Other History: Positive for:: Cancer (mouth ca, breast ca) Hospitalization (UTI, Sepsis) Thyroid Disease Denies:: Endocrine Disease History Blood Transfusions: Positive for:: Blood Transfusions Denies:: Blood Transfuse Reaction Hx Diabetes: Yes Other Pertinent History: S/P PICC INSERTION, REMOVAL Hx Alcohol Use: Yes (occasional)Hx Substance Use: No Smoking Status: Never Smoker Have You Smoked inLast 12 mo: No Stop/Bang S-Snoring: Do You Snore Loudly: Yes T-Tired: feel tired, fatigued: Yes O-Obsered: Observed not breath: No P-Blood Pressure: treated: Yes B- Body Mass Index > 35 kg/m2: No A- Age over 50: Yes N- Neck Large Circumference: No G- Gender Male: No TK Total Score: 4 TK Risk Assessment: High Risk, =/>3 Yes Risk Assessment Category Category 1A: Patient has history of documented sleep apnea, and HAS NOT received any narcotic, sedative or anesthesia administration during this stay. Category 1B: Patient has history of documented sleep apnea, and HAS received any narcotic , sedative or anesthesia administration during this stay Category 2: Patient has SUSPECTED Obstructive Sleep Apnea, and HAS received any narcotic , sedative or anesthesia administration during this stay. Category 3: Patient has SUSPECTED Obstructive Sleep Apnea and HAS NOT received narcotic, sedative or anesthesia administration during this stay. Category 4: Outpatient in Procedural Areas with known sleep apnea or who screen positive for High Risk via the STOP/BANG questionnaire. Exam Exam Vital Signs Vital Signs Date Time Temp Pulse Resp B/P Pulse Ox O2 Delivery O2 Flow Rate FiO2 05/10/17 07:40 36 109 16 152/68 95 Room Air General Appearance: Alert, Oriented X3, Cooperative, No Acute Distress HEENT/AIRWAY: MP 3 Lungs: Clear to Auscultation Heart: Normal S1, Normal S2 Plan Impression Patient chart reviewed, patient interviewed and anesthestic plan with risks, benefits, and alternatives discussed, and informed consent obtained. NPO per Anesth. Guidelines: Yes ASA Physical Status: ASA3 Severe Disease Anesthetic Support Modalities: Gridley Scope Anesthetic Plan: GA Bene/Risks/Altern/Consents: Yes HP Complete Prior to Induction: Yes Braden Rossi MD May 10, 2017 08:03
[2017-05-10] MEDS ORDERED: 0.9% Sodium Chloride 1,000 ML IV ONE (08:47)
[2017-05-10] MEDS ORDERED: Lactated Ringer's 1,000 ML IV SCH (09:29)
[2017-05-10] MEDS ORDERED: Lactated Ringer's 500 ML IV PRN (09:29)
[2017-05-10] MEDS ORDERED: Ondansetron 2 mg/mL 2 mL Inj IVPUSH PRN (09:30)
[2017-05-10] MEDS ORDERED: Labetalol 5 mg/mL 4 mL Inj IV PRN (09:30)
[2017-05-10] MEDS ORDERED: EPHEDrine Sulfate 50 mg/mL Inj IVPUSH PRN (09:30)
[2017-05-10] MEDS ORDERED: Phenylephrine 10,000 mCg/mL Inj IVPUSH PRN (09:30)
[2017-05-10] MEDS ORDERED: Atropine 0.4 mg/mL Inj IVPUSH PRN (09:30)
[2017-05-10] MEDS ORDERED: fentaNYL-PF 50 mCg/mL 2 mL Inj IVPUSH PRN (09:30)
[2017-05-10] MEDS ORDERED: HYDROcodone-APAP 5-325 mg Tablet PO PRN (10:20)
--- NOTE | 2017-05-10 10:40 | PCM.ANEP1 ---
Post Anesthesia PACU Phase 1 Assessment Vital Signs Vital Signs Date Time Temp Pulse Resp B/P Pulse Ox O2 Delivery O2 Flow Rate FiO2 05/10/17 10:25 36.3 110 10 182/72 99 Simple Mask 8 05/10/17 07:40 36 109 16 152/68 95 Room Air Anesthetic Administered: GA Level of Alertness: Awake, talking CHRISTIAN's with Equal Strength: Yes (baseline) Pain: No Nausea or Vomiting: No CV Function & Hydration Stable: Yes Airway Device: Endotrachial Tube Oxygen Delivery: Simple Mask Lungs: Clear to Auscultation PACU Phase 2 Assessment Complications: No Follow up Care: N/A Patient Instructions Provided: N/A Braden Rossi MD May 10, 2017 10:39
--- NOTE | 2017-05-10 10:43 | DRSVH ---
PROCEDURE: X-RAY RETROGRADE UROGRAPHY INDICATIONS: LEFT URETEROSCOPY AND STONES TECHNIQUE: 2 intra-operative images acquired by the Urology service. COMPARISON: [facility], CR, XR RETROGRADE UROGRAPHY, 09/17/2016, 18:16. [facility], CR, XR RETROGRADE UROGRAPHY, 02/26/2017, 15:14. FINDINGS: Exam limited to two submitted images. Within these limits IVC filter is present. There i s mild prominence of the left renal collecting system and multiple intraluminal filling defects of va rying sizes. Proximal ureter were visualized appears grossly normal. IMPRESSION: Enlarged left renal collecting system redemonstrated containing multiple intraluminal filling defects . These filling defects may represent air, heterogeneous filling of contrast, or intraluminal calcul i. Correlate with real time examination. Dictated by: Vineet Price [facility] Interpreted: Timmy Story MD on 05/10/2017 at 10:39 Transcribed by: ROLDNA on 05/10/2017 at 10:42 Approved by: Timmy Story M.D. on 05/10/2017 at 11:35
--- NOTE | 2017-05-10 22:43 | OP ---
[address] [address] OPERATIVE REPORT PATIENT: LEIGHA GORDON : 1950 MR#: [id number] ADMIT: 05/10/2017 JOB ID: [id number] DATE OF SURGERY: 05/10/2017 PREOPERATIVE DIAGNOSIS(ES): 1. Bladder stones. 2. Left ureteral stone. POSTOPERATIVE DIAGNOSIS(ES): Bladder stones. PROCEDURES PERFORMED: 1. Cystoscopy. 2. Cystolitholapaxy with laser. 3. Left stent removal. 4. Left retrograde pyelogram. 5. Left ureteroscopy. (Modifier 22 is being requested given the patient's severe limb contractures and dysmorphic bladder from history of bladder augmentation requiring procedure time of over 100% longer for the same diagnoses). SURGEON: Leigha Arora MD. MEMBERSHIP MANAGER: None. FINDINGS: 1. Thin veil of bladder neck stricture. 2. Innumerable bladder stones. 3. Capacious left ureteral orifice without finding of left ureteral stone. ANESTHESIA: General. ESTIMATED BLOOD LOSS: Less than 5 mL. DRAINS: No new drains (patient's existing suprapubic catheter was retained). SPECIMENS: Bladder stones for gross only. COMPLICATIONS: None. CONDITION: Stable. INDICATION FOR PROCEDURE: The patient is a 67-year-old woman with a history of MS and urolithiasis. She presents for cystolitholapaxy and left ureteroscopy for left ureteral stone. DESCRIPTION OF PROCEDURE: After informed consent was obtained, the patient was taken to the operating room. A time-out was performed identifying correct patient, surgical site, and procedure. General anesthesia was smoothly induced. She was carefully placed in the lithotomy position. Given her severe limb contractures, the right foot was placed within the Yellowfin boot and all pressure points were identified and appropriately padded. Given the severe nature of the contracture of her left lower extremity this was placed within a candy cane stirrup so that the patient could be positioned without undue tension on her limbs. Her genitals were then prepped and draped in usual sterile fashion. It should be noted that the patient has excoriated and atrophic/thin genital skin. Upon entry into the urethral meatus there was seen a small opening approximately 10-Kyrgyz. This appeared to be consistent with her bladder neck surgery from the past. It was cannulated with a Sensor Tip wire which was easily navigated beyond it. A Pollack catheter was loaded over it, though during this manipulation the cystoscope was able to commence forward into the bladder revealing that this contracture was a thin veil of tissue only. There was no bleeding. The Pollack was subsequently removed. The Sensor Tip wire was then followed into the bladder. The Sensor Tip wire was then removed. The bladder had copious and innumerable stones within it. The bladder was irrigated and drained multiple times. The vast majority of stones were smaller than a 22-Kyrgyz sheath and so could be drained. There were five stones that were larger than 22-Kyrgyz and a 365 micron laser fiber wire was used to break the stones into small pieces and then subsequently evacuated through the scope. Upon survey of the bladder, the bladder was quite clean at that point. The bladder is dysmorphic given her history of bladder augmentation. The stent was seen emanating from the left ureteral orifice. It was grasped with stent graspers and brought down to the urethral meatus. Lexy clame was used to unclog the distal aspect of the stent as it had been encrusted. A Sensor Tip wire was loaded through it and advanced to the renal pelvis as seen under fluoroscopy. This stent was then removed and examined on the back table and ensured as removed in its entirety. A second Sensor Tip wire was then advanced in similar fashion. Next, the cystoscope was replaced in hopes of performing a retrograde pyelogram at this point, though, given the dysmorphic configuration of her bladder it was quite disorienting and inadvertently the left ureteral orifice was cannulated with the cystoscope as the wires were being followed up into the patient's bladder. This revealed that the left ureter is extremely dilated with the left ureteral orifice quite patulous and capacious. The cystoscope was then removed under direct vision. It had only cannulated the distal ureter. The semi-rigid ureteroscope was then used to follow the wires up into the left ureter. Given the patient's short status the ureteral scope could be advanced to the renal pelvis without difficulty. There were no stones within the ureter upon repeated investigation of the ureter. Retrograde pyelogram was performed. There were no discrete stones within the renal pelvis. The ureteroscope was then brought down under direct vision and removed from the patient's body. The Sensor Tip wires were then removed as well. The patient's suprapubic tube had been capped prior to beginning the procedure and it was then uncapped and left to dependent drainage. The patient appeared to tolerate the procedure well without apparent complications. So again modifier 22 is being requested given the patient's limb contractures, dysmorphic bladder, and overall procedure time of greater than 100% for the average operative time for these diagnoses. JESSY
[2017-05-18 15:10] LABS: Stone Color Tan (.)
== END 2017-05-10 23:59 | disposition home or self-care (01) ==
LOC: SAS 07:07
PROVIDERS: ATTEND Urology
DX: N21.0 Calculus in bladder (principal); N20.1 Calculus of ureter; G35 Multiple sclerosis; I44.2 Atrioventricular block, complete; I47.1 Supraventricular tachycardia; E11.9 Type 2 diabetes mellitus without complications; I10 Essential (primary) hypertension; E78.5 Hyperlipidemia, unspecified; Z95.0 Presence of cardiac pacemaker; Z93.2 Ileostomy status; Z79.4 Long term (current) use of insulin; Z79.01 Long term (current) use of anticoagulants
CPT/HCPCS: 36415; 52318; 52351; 74420; 82360; 85610; J0696; J2405; J2710; J3010; J7030; Q9967

== ENCOUNTER 2017-07-08 18:10 | Observation (INO) | payer MEDICARE ==
[~2017-07-08] VITALS: Ht 165.1 cm; Wt 84.7 kg
[~2017-07-08 18:10] MED LIST changes: -Ceftriaxone 1,000 mg/50 mL D5W Minibag Plus IV ONE; -Lactated Ringer's 1,000 ML IV ONE
[2017-07-08 18:18] VITALS: BP 129/76; PULSE 127; RESP 20; O2SAT 97
--- NOTE | 2017-07-08 18:36 | ED.REPORT ---
HPI-Abd Pain F 40 and Over Date of Service Jul 08, 2017 ED Provider: Wayne Bella MD A 67 year old female with an extensive medical history including MS w/ paresis s /p colostomy and chronic Peacock suprapubic catheter placement, recurrent nephrolithiasis, DVT and PE on Coumadin, atrial fibrillation, right breast cancer s/p mastectomy, recurrent UTI's and insulin dependent diabetes mellitus presents to the ED with general malaise that began yesterday. The patient was recently diagnosed with bladder stones and a left ureteral stone s/p cystolitholapaxy and left stent removal. Her family reports that the patient has been experiencing confusion and decreased appetite. Patient denies recent cough, congestion, abdominal pain, nausea, vomiting or diarrhea. Patient was previously admitted for 1 week to the ED in 02/2017 for acute kidney injury, UTI and sepsis. Nursing Notes Stated Complaint: UTI,POSSIBLE SEPSIS Chief Complaint: Female Abdominal Pain Nursing Notes Reviewed: Yes Allergies: Coded Allergies: metronidazole (Verified Allergy, Severe, N/V, 07/08/17) Cephalosporins (Verified Allergy, Unknown, UNKNOWN (IS TAKING ORAL CEFTIN) , 07/08/17) Quinolones (Verified Allergy, Unknown, UNKNOWN Reaction is to Cipro, ) ciprofloxacin (Verified Allergy, Unknown, 07/08/17) levofloxacin (Verified Allergy, Unknown, UNKNOWN, 05/07/17) metoclopramide HCl (Verified Allergy, Unknown, UNKNOWN, 05/07/17) nitrofurantoin (Verified Allergy, Unknown, UNKNOWN, 05/07/17) scopolamine (Verified Allergy, Unknown, UNKNOWN, 07/08/17) trimethoprim (Verified Allergy, Unknown, TONGUE SWELLING, 07/08/17) Gnyfvcq-Gwt-Ezb Reductase Inhibitor (Verified Adverse Reaction, Severe, ELEVATED LIVER ENZYMES, 07/08/17) Sulfa (Sulfonamide Antibiotics) (Verified Adverse Reaction, Severe, NUMB MOUTH, 07/08/17) Uncoded Allergies: HOSPITAL LINENS (Allergy, Unknown, UNKNOWN, 01/10/14) PLASTIC TAPE (Adverse Reaction, Severe, SKIN IRRITATION, BLISTERS, 01/10/14) Scheduled Ascorbate Calcium (Vitamin C) 500 Mg Tablet 500 MG PO BID Baclofen (Baclofen) 20 Mg Tablet 20 MG PO BID Levothyroxine (Levothyroxine) 112 Mcg Tablet 112 MCG PO DAILY Magnesium Oxide (Magnesium Oxide) 250 Mg Tablet 325 MG PO DAILY Multivits-Min/FA/Lycopene/Lut (Centrum Silver Tablet) 1 Each Tablet 1 EACH PO DAILY NPH, Human Insulin Isophane (HUMulin-N U100 Insulin Vial) 100 Unit/1 Ml Vial 45 UNIT SUBQ QPM NPH, Human Insulin Isophane (HUMulin-N U100 Insulin Vial) 100 Unit/1 Ml Vial 40 UNIT SUBQ QAM Niacin (Niacin) 500 Mg Capsule.er 500 MG PO BID Potassium Chloride (Potassium Chloride) 20 Meq Tab.er.prt 20 MEQ PO DAILY TAKE WITH FOOD Tamsulosin (Flomax) 0.4 Mg Capsule 0.4 MG PO HS Warfarin Sodium (Warfarin Sodium) 4 Mg Tablet 4 MG PO DAILY Scheduled PRN Insulin Lispro (HumaLOG U100 Insulin Pen) 100 Unit/1 Ml Insuln.pen 5-10 UNIT SUBQ ACHS PRN PRN hyperglycemia sliding scale insulin Nystatin (Nystatin) 15 Gm Powder 1 APPLIC TP TID PRN PRN rash General Time Seen by MD: 18:27 Chief Complaint Other (altered mental status) Hx Obtained From: Patient Arrived By: Walk-in Sudden in Onset?: No Symptom Duration: Since onset Progression since Onset: Unchanged Pertinent Negative: Pt denies other symptoms Recent Healthcare: Recent doctor visit, Recent hospitalization (Sepsis/UTI ) Risk Factors )( AAA Risk Stratification Risk factors reviewed Past Medical History Past Medical History Multiple Sclerosis with paresis Nephrolithiasis Recurrent sacral decubitus ulcers Hypothyroid Chronic coumadin anticoagulation DVT and PE Breast cancer Mouth cancer AFib Aspiration penumonia GI Bleeds Liver Disease MRSA Hx UTIs Reports: Diabetes mellitus, Hypertension Past Surgical History Mastectomy (Right) Chronic suprapubic catheter Colostomy Pacemaker Family History Noncontributory Smoking History Never Smoker Social History Other Social History: Good social support, Local resident Ambulatory Status Wheelchair Review of Systems + decreased appetite Constitutional: Reports: Malaise Respiratory: Denies: Non-productive cough GI: Denies: Abdominal pain, Diarrhea, Nausea, Vomiting Complete sys rev & neg: except as marked. Ears / Nose / Throat: Denies: Nasal congestion Neurologic: Reports: Confusion Physical Exam Vital Signs Vital Signs (First) Date Time Temp Pulse Resp B/P Pulse Ox O2 Delivery O2 Flow Rate FiO2 07/08/17 18:18 37.8 127 20 129/76 97 Room Air Initial VS: Reviewed Head / Eyes: Atraumatic, Normocephalic, PERRL Neck: Supple, Non-tender, Full range of motion Extremities: Vascular intact, Neuro intact, No swelling, No tenderness Skin: Warm, Dry, No cyanosis Neurologic: Alert, Oriented, Nonfocal Psychiatric: Mood/affect normal, Behavior normal, Normal thought content General/Constitutional: Awake, Alert, No acute distress Respiratory / Chest: Atraumatic, Breath sounds NL, Breath sounds = bilat, No respiratory distress Cardiovascular: Regular rhythm Heart Rate / Rhythm: Positive: Tachycardia Heart Sounds / Murmur: Positive: Systolic murmur present.. (II/ - Left Upper Sternal Border) Abdomen: Atraumatic, Soft, Non-tender, No guarding, No rebound Catheter is in place without any erythema, swelling or signs of infection Ostomy bag in place without any erythema, swelling or signs of infection Interpretation & Diagnostics Lab Results Interpretation Result Diagram: 07/08/17191907/08/17 192 Test 07/08/17 19:20 07/08/17 19:32 07/08/17 19:40 White Blood Count 15.1th/mm3 (3.8-10.1) Red Blood Count 4.44mil/mm3 (3.90-5.20) Hemoglobin 12.6g/dL (12.0-15.6) Hematocrit 38.8% (35.0-46.0) Mean Corpuscular Volume 87.4fL (81-100) Mean Corpuscular Hemoglobin 28.4pg (27.0-35.0) Mean Corpuscular Hemoglobin Concent 32.5% (32.0-37.0) Red Cell Distribution Width 14.7% (12.3-15.4) Platelet Count 201bil/L (150-400) Neutrophils (%) (Auto) 85.4% (40-74) Lymphocytes (%) (Auto) 6.7% (14-46) Monocytes (%) (Auto) 7.1% (4-12) Eosinophils (%) (Auto) 0.2% (0-5) Basophils (%) (Auto) 0.3% (0-3) Prothrombin Time 11.7sec (8.1-12.5) Prothromb Time International Ratio 1.09ratio Sodium Level 137mEq/L (134-144) Potassium Level 4.7mEq/L (3.5-5.2) Chloride Level 103mEq/L (97-108) Carbon Dioxide Level 17mmol/L (18-29) Blood Urea Nitrogen 27mg/dL (8-27) Creatinine 0.96mg/dL (0.57-1.00) Estimat Glomerular Filtration Rate 83mL/min (>59) Glucose Level 214mg/dL (60-99) Lactic Acid Level 1.3mmol/L (0.4-2.0) Calcium Level 10.5mg/dL (8.5-10.1) Magnesium Level 2.0mg/dL (1.6-2.6) Total Bilirubin 0.9mg/dL (0.0-1.2) Aspartate Amino Transf (AST/SGOT) 82U/L (0-50) Alanine Aminotransferase (ALT/SGPT) 113U/L (0-32) Alkaline Phosphatase 192U/L (25-165) Total Protein 8.0g/dL (6.4-8.4) Albumin 4.3g/dL (3.4-5.0) Lipase 28U/L (13-60) Urine Color Yellow (YELLOW) Urine Appearance Cloudy (CLEAR,HAZY) Urine pH 7.0 (5.0-8.0) Urine Specific [place] 1.010 (1.003-1.035) Urine Protein 100mg/dL (NEG,TRACE) Urine Glucose (UA) Negativemg/dL (NEGATIVE) Urine Ketones Negativemg/dL (NEGATIVE) Urine Occult Blood Moderate (NEGATIVE) Urine Nitrite Positive (NEGATIVE) Urine Bilirubin Negative (NEGATIVE) Urine Urobilinogen Normalmg/dL (NORMAL) Urine Leukocyte Esterase Large (NEGATIVE) Urine RBC 11-50/hpf (0-2) Urine WBC Packed/hpf (0-5) Urine Epithelial Cells Occasional/hpf (NONE-MOD) Urine Crystals None seen (NONE SEEN) Urine Bacteria Moderate/hpf (NONE-FEW) Urine Hyaline Casts None/lpf (NONE) Urine Granular Casts None seen (NONE SEEN) Urine Waxy Casts None seen (NONE SEEN) Urine Red Blood Cell Casts None seen (NONE SEEN) Urine White Blood Cell Casts None seen (NONE SEEN) Urine Mucus None seen (None Seen) Urine Trichomonas None seen (NONE SEEN) Urine Yeast None (NONE SEEN) Urinalysis Comment None Urine Culture Reflexed Indicated Procalcitonin 0.28ng/mL (0.00-0.08) Re-Eval/Medical Decision Med Decision/Clinical Course 67-year-old female history of MS, colostomy, suprapubic catheter with recurrent UTIs presenting with altered mental status since this afternoon. This typically happens with her UTIs. Her urine does suggest infection and white blood cell count is elevated. She is febrile here. She will be admitted for altered mental status which is likely due to her UTI. She will be treated with ceftriaxone per previous admission sensitivities. Admitted to hospital. Re-Evaluation/Progress : Time of Eval: 20:07 Patient Status: Condition improved Re-Evaluation/Progress Note: The patient's symptoms have improved upon recheck. She is informed of her results and diagnosis. The patient understands and agrees with the intended treatment plan. Code status is discussed in the presence of family and the patient would like to be DNR/DNI Consultation : Referral / Consult Name: Refugio White MD Consulted With: Hospitalist Call Returned at: 20:09 Spot Machine Operator: Will see patient, Agrees with eval, Agrees with plan, Accepts admit Note: Patient condition is discussed. Accepts admission. Counseled Regarding: Diagnosis, Lab results, Need for admission Discharge & Departure Primary Impression: Altered mental status Additional Impressions: Urinary tract infection Fever Disposition: ADMITTED TO HOSPITAL Discharge Condition All VS Reviewed: Yes Condition: Improved Referrals: Tali Menjivar MD (PCP) Scribe Attestation Portions of this note were transcribed by Adamaris Urena. I, Dr. Bella personally performed the history, physical exam and medical decision-making; I reviewed and confirmed the accuracy of the information in the transcribed note. copies to: Tali Menjivar MD, Ben M MD Jul 08, 2017 18:36 ADAMARIS URENA Jul 08, 2017 18:44
[2017-07-08] MEDS ORDERED: 0.9% Sodium Chloride 1,000 ML IV ONE (18:38)
[2017-07-08] MEDS ORDERED: Ondansetron 2 mg/mL 2 mL Inj IVPUSH PRN ×2 (18:40→20:10)
[2017-07-08 19:34] LABS: BASOPHILS % (AUTO) 0.3 % (0-3); EOSINOPHILS % (AUTO) 0.2 % (0-5); MONOCYTES % (AUTO) 7.1 % (4-12); Mean Corpuscular Hemoglobin 28.4 pg (27.0-35.0); Mean Corpuscular Volume 87.4 fL (81-100); NEUTROPHILS % (AUTO) 85.4 % (40-74); Platelet Count 201 bil/L (150-400)
[2017-07-08 19:46] LABS: APPEARANCE,URINE CLOUDY (CLEAR,HAZY); COLOR,URINE YELLOW (YELLOW); OCCULT BLOOD,URINE MODERATE (NEGATIVE); UROBILINOGEN,URINE NORMAL (NORMAL)
[2017-07-08 19:50] LABS: INR 1.09 ratio
[2017-07-08] MEDS ORDERED: cefTRIAXone Inj 2,000 MG in Dextrose 5% Minibag Plus 50 ML IV ONE (20:00)
[2017-07-08] MEDS ORDERED: Alum-Mag Hydrox-Simeth 30 mL Suspension PO PRN (20:10)
[2017-07-08] MEDS ORDERED: NPH,100V11 SUBQ (20:15)
[2017-07-08] MEDS ORDERED: ASCO-294 PO (20:15)
[2017-07-08] MEDS ORDERED: MAGN250T37 PO (20:15)
[2017-07-08] MEDS ORDERED: Polyethylene Glycol (PEG) 17 Gm Powder PO PRN (20:25)
[2017-07-08 21:15] VITALS: BP 124/69; PULSE 86; RESP 17; O2SAT 92
[2017-07-09] MEDS: 0.9% Sodium Chloride 1,000 ML IV SCH ×3 (00:03→16:24)
[2017-07-09] MEDS ORDERED: Glucose 40% Oral Gel 15 Gm Tube PO PRN (00:10)
--- NOTE | 2017-07-09 00:22 | PCM.HPMED ---
Subjective Date of Service Jul 08, 2017 Primary Provider: Admitting Physician: Primary Care Physician: Karely Deshpande Attending Physician: Admit Status: From the Emergency Department, Full Admit Chief Complaint: General malaise. . 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 The patient was recently diagnosed with bladder stones and a left ureteral stone status post cystolitholapaxy and left stent removal. Her family reports that the patient has been experiencing confusion and decreased appetite. She denies recent headache, vision changes, sore throat, cough, congestion, chest pain, shortness of breath, abdominal pain, nausea, vomiting, fever, chills, bladder pain or discomfort around the suprapubic catheter, diarrhea or constipation. She reports that she is unsure why she is at the hospital as she feels well and does not believe she was lethargic as her reported. The patient was previously admitted for 1 week to the ED in for acute kidney injury, UTI and sepsis. Vital signs in the ER: Temperature 37.8. Pulse 127. Respiratory rate 20. Blood pressure 129/76. Pulse ox 97% on room air. She was given ondansetron IV 4 mg 1, ceftriaxone IV 2 g 1, vancomycin with dosing per pharmacy, and 1 L of NS. PCP is Karely EDUARDO. Urologist is Dr. Arora. . Review of Systems: A comprehensive review of systems was conducted with the patient and found to be negative except as above in the History of Present Illness. . Allergies Coded Allergies: metronidazole (Verified Allergy, Severe, N/V, 07/08/17) Cephalosporins (Verified Allergy, Unknown, UNKNOWN (IS TAKING ORAL CEFTIN) , 07/08/17) Quinolones (Verified Allergy, Unknown, UNKNOWN Reaction is to Cipro, ) ciprofloxacin (Verified Allergy, Unknown, 07/08/17) levofloxacin (Verified Allergy, Unknown, UNKNOWN, 05/07/17) metoclopramide HCl (Verified Allergy, Unknown, UNKNOWN, 05/07/17) nitrofurantoin (Verified Allergy, Unknown, UNKNOWN, 05/07/17) scopolamine (Verified Allergy, Unknown, UNKNOWN, 07/08/17) trimethoprim (Verified Allergy, Unknown, TONGUE SWELLING, 07/08/17) Hcddcyh-Dzt-Kfe Reductase Inhibitor (Verified Adverse Reaction, Severe, ELEVATED LIVER ENZYMES, 07/08/17) Sulfa (Sulfonamide Antibiotics) (Verified Adverse Reaction, Severe, NUMB MOUTH, 07/08/17) Uncoded Allergies: HOSPITAL LINENS (Allergy, Unknown, UNKNOWN, 01/10/14) PLASTIC TAPE (Adverse Reaction, Severe, SKIN IRRITATION, BLISTERS, 01/10/14) Home Medications Baclofen 20 mg twice a day. Humalog SSI. Levothyroxine 112 g daily. Lomotil 1 tablet every 8 hours as needed Multivitamin 1 tablet daily. Niacin 500 mg twice a day. NPH 40 units every morning and 45 units every afternoon. Nystatin powder applied topically 3 times a day as needed for yeast infection. Potassium chloride 20 mEq daily. Saline nasal spray daily as needed. Tamsulosin 0.4 mg daily at bedtime. Warfarin 4 mg daily. PMH 1. Multiple Sclerosis with paresis and chronic suprapubic Peacock catheter. 2. Nephrolithiasis. 3. Recurrent sacral decubitus ulcers. 4. Hypothyroidism. 5. History of DVT and PE on chronic anticoagulation with warfarin. 6. Right breast cancer status post right mastectomy. 7. Tongue cancer status post resection. 8. Paroxysmal atrial fibrillation. 9. History of aspiration penumonia. 10. History of GI bleeds. 11. Liver disease. 12. MRSA. 13. History of recurrent UTIs. 14. Diabetes mellitus type II, insulin using. 15. Hypertension. 16. Complete heart block status post pacemaker placement. . Surgical History 1. Right mastectomy. 2. Chronic suprapubic Peacock catheter. 3. Colostomy. 4. Pacemaker. 5. Tonsillectomy. 6. Tongue resection. . Family History Mother who of Alzheimer's dementia. She has two brothers who have cancer, one with spinal cancer and the other with brain cancer. Cousin and grandfather who had MS. . Social History Hx Alcohol Use: No Hx Substance Use: No Hx Tobacco Use: No Smoking Status: Never Smoker Living Arrangement: with Family Additional Information The patient was born in [place] and grew up in [place] Her great grandfather was Joby Tracey who founded [place] and there is a statue of him in [facility]. The patient went to [place] [employer] and graduated. 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 The patient met her Angel through her best friend and she has been for 43 years. She has 2 children one boy who is in [place] and one girl who was in [place] living with the patient and Angel. The patient has been bedbound for approximately 10 years now. She has a lift to get her into a wheelchair for transportation.She has a nurse Wednesday, Wednesday, Wednesday who helps her bathe and change her suprapubic catheter on a weekly basis. . Exam Vital Signs Vital Sign - Last Date Time Temp Pulse Resp B/P Pulse Ox O2 Delivery O2 Flow Rate FiO2 07/08/17 18:18 37.8 127 20 129/76 97 Room Air Exam General: Elderly female lying in bed in no acute distress, chronically ill- appearing, pallor, appropriately interactive. HEENT: Normocephalic, atraumatic. External ears without defect. Pupils equal, round, and reactive to light. Anicteric sclerae, moist conjunctivae, and no lid lag. Oropharynx free of erythema and cobble stoning with moist mucosa. Neck: Supple with full range of motion. No jugular venous distension. No bruits. No lymphadenopathy or thyromegaly. Cardiovascular: Regular rate and rhythm without murmurs, rubs, or gallops appreciated Pulmonary: Clear to auscultation bilaterally in anterior lung rodriges without crackles, wheezes, or rhonchi. Normal respiratory effort with no use of accessory muscles. Abdomen: Soft, suprapubic tenderness, nondistended sounds present. No hepatosplenomegaly or masses appreciated. Colostomy in place with brown liquid stool. Genitourinary: Suprapubic catheter in place mild erythema around bandage but does not appear to be infected. Extremities: No clubbing, cyanosis, or edema. Lower extremities flaccid and internally rotated. Skin: Normal temperature, turgor, and texture; no rash, ulcers, or subcutaneous nodules appreciated. Neurological: Bedbound due to MS. Lower extremities flaccid and internally rotated. Psychiatric: Normal mood and affect. Alert and oriented to person and place. . Lab and Diagnostics Labs Item Value Date Time Urine Color Yellow 07/08/171931 Urine Appearance Cloudy 07/08/171931 Urine Specific [place] 1.010 07/08/171931 Urine pH 7.0 07/08/171931 Urine Protein 100 mg/dL 07/08/171931 Urine Glucose (UA) Negative mg/dL 07/08/171931 Urine Ketones Negative mg/dL 07/08/171931 Urine Occult Blood Moderate 07/08/171931 Urine Nitrite Positive 07/08/171931 Urine Bilirubin Negative 07/08/171931 Urine Urobilinogen Normal mg/dL 07/08/171931 Urine Leukocyte Esterase Large 07/08/171931 Urine RBC 11-50 /hpf 07/08/171931 Urine WBC Packed /hpf 07/08/171931 Urine Epithelial Cells Occasional /hpf 07/08/171931 Urine Crystals None seen 07/08/171931 Urine Bacteria Moderate /hpf 07/08/171931 Urine Hyaline Casts None /lpf 07/08/171931 Urine Granular Casts None seen 07/08/171931 Urine Waxy Casts None seen 07/08/171931 Urine Red Blood Cell Casts None seen 07/08/171931 Urine White Blood Cell Casts None seen 07/08/171931 Urine Mucus None seen 07/08/171931 Urine Trichomonas None seen 07/08/171931 Urine Yeast None 07/08/171931 Urinalysis Comment None 07/08/171931 Item Value Date Time Prothrombin Time 11.7 sec 07/08/171919 Prothromb Time International Ratio 1.09 ratio 07/08/171919 Item Value Date Time Calcium Level 10.5 mg/dL H 07/08/171919 Lactic Acid Level 1.3 mmol/L 07/08/171919 Magnesium Level 2.0 mg/dL 07/08/171919 Total Bilirubin 0.9 mg/dL 07/08/171919 Aspartate Amino Transf (AST/SGOT) 82 U/L H 07/08/171919 Alanine Aminotransferase (ALT/SGPT) 113 U/L H 07/08/171919 Alkaline Phosphatase 192 U/L H 07/08/171919 Total Protein 8.0 g/dL 07/08/171919 Albumin 4.3 g/dL 07/08/171919 Lipase 28 U/L 07/08/171919 Result Diagram: 07/08/17191907/08/171919 Microbiology Blood culture 2 pending. Urine culture pending. . Assessment & Plan Leigha Lutz is a 67-year-old female with a past medical history significant for MS with paresis that is post colostomy and chronic suprapubic Peacock catheter , recurrent nephrolithiasis, history of DVT and PE on warfarin, atrial fibrillation, right breast cancer status post mastectomy, recurrent UTI's and insulin dependent diabetes mellitus type II, insulin using, who presented to [facility] emergency Department for general malaise that began yesterday. 1. Acute urinary tract infection with chronic suprapubic Peacock catheter for urinary retention, present on admission. Active. - Patient presented with generalized malaise with chronic suprapubic Peacock catheter and moderate leukocytosis. Afebrile. Does not meet sepsis criteria. - Urinalysis with packed WBCs and positive leukocyte esterase and nitrite. Urine culture pending, as above. - Lactic acid normal at 1.3. - Procalcitonin 0.28. - Received ceftriaxone 2 g in ED. The patient has had history of pseudomonas and Proteus mirabilis UTI in the past sensitive to cefepime. Ordered cefepime 1 g every 12 hours. - Patient received 1 L of NS in the ED. - Ordered blood cultures 2 pending, as above. - Continue tamsulosin 0.4 mg daily at bedtime. - Maintain good hygienic technique and keep catheter sterile. Changed weekly and recently changed by caregiver. - Needs closely monitoring and Urology follow up as outpatient Chronic problems: 2. Paroxysmal atrial fibrillation, present on admission. Stable. - Continue to monitor on telemetry. - Subtherapeutic INR at 1.09. Continue Warfarin with dosing per pharmacy. 3. Hypertension, present on admission. Stable. - Not medically treated. - Continue to monitor BP 4. Acquired hypothyroidism, present on admission. Stable. - Continue levothyroxine 112 g daily. 5. Multiple sclerosis, present on admission. Stable. - The patient is bedbound with internally rotated and flaccid lower extremities. - Continue Baclofen 20 mg twice a day for spasticity. 6. Diabetes mellitus type II, insulin using, present on admission. Stable. - Last hemoglobin A1c 8.1% in 01/2017. Repeat hemoglobin A1c pending. - Ordered carbohydrate consistent/heart healthy diet. - Continue high dose correctional scale insulin. - Continue NPH 40 units every morning and 45 units every afternoon. 7. Chronically elevated LFT's since 2009, present on admission. Stable. - The patient has had an extensive GI workup in the past suspect for which they suspect it is multifactorial and due to meds and NAFLD. - Continue to monitor with CMP daily. - May want to consider a GI follow-up as an outpatient to discern etiology of liver disease and follow-up the previous liver workup done in the past as outpatient records do not indicate this has been done. PRN antiemetics: Zofran and Maalox. PRN bowel regimen: Senna and MiraLAX. PRN analgesics: Tylenol. Patient is admitted under observation status with expected length of stay less than 2 midnights due to severity of presenting symptoms, risk of adverse event, and complexity of treatment plan. . VTE Prophylaxis: Sub-Q Heparin (Unfractionated) (until therapeutic on warfarin) , SCDs, Other (warfarin) Resuscitation Status: CPR: Attempt Resuscitation Attending Statement The patient was seen and examined together with Dr. El on 07/08 and I agree with the history, exam and plan as outlined in the note above. copies to: Leigha Arora MD; Karely Deshpande Georgia M DO Jul 08, 2017 20:11 Refugio White MD Jul 09, 2017 03:10
[2017-07-09] MEDS ORDERED: Heparin 5,000 Unit/mL Inj SUBQ SCH (00:30)
[2017-07-09] MEDS: Heparin 5,000 Unit/mL Inj SUBQ SCH ×3 (00:34→18:10)
--- NOTE | 2017-07-09 01:12 | PCM.CONPHA ---
Subjective Date of Service: Jul 09, 2017 Requesting Provider: Erin El [facility]. . Reason for Pharmacy Consult: Anticoagulation Management Objective Vital Signs Date Time Temp Pulse Resp B/P Pulse Ox O2 Delivery O2 Flow Rate FiO2 07/08/17 21:15 37.6 86 17 124/69 92 Room Air 07/08/17 18:18 37.8 127 20 129/76 97 Room Air Intake and Output 07/07/17 07/08/17 07/09/17 00:00 00:00 00:00 Intake Total 1000 ml Balance 1000 ml Weight (Kilograms): 79.600 Height (Feet): 5 Height (Inches): 5.00 Test 07/08/17 19:20 07/08/17 19:32 07/08/17 19:40 White Blood Count 15.1th/mm3 (3.8-10.1) Red Blood Count 4.44mil/mm3 (3.90-5.20) Hemoglobin 12.6g/dL (12.0-15.6) Hematocrit 38.8% (35.0-46.0) Mean Corpuscular Volume 87.4fL (81-100) Mean Corpuscular Hemoglobin 28.4pg (27.0-35.0) Mean Corpuscular Hemoglobin Concent 32.5% (32.0-37.0) Red Cell Distribution Width 14.7% (12.3-15.4) Platelet Count 201bil/L (150-400) Neutrophils (%) (Auto) 85.4% (40-74) Lymphocytes (%) (Auto) 6.7% (14-46) Monocytes (%) (Auto) 7.1% (4-12) Eosinophils (%) (Auto) 0.2% (0-5) Basophils (%) (Auto) 0.3% (0-3) Prothrombin Time 11.7sec (8.1-12.5) Prothromb Time International Ratio 1.09ratio Sodium Level 137mEq/L (134-144) Potassium Level 4.7mEq/L (3.5-5.2) Chloride Level 103mEq/L (97-108) Carbon Dioxide Level 17mmol/L (18-29) Blood Urea Nitrogen 27mg/dL (8-27) Creatinine 0.96mg/dL (0.57-1.00) Estimat Glomerular Filtration Rate 83mL/min (>59) Glucose Level 214mg/dL (60-99) Lactic Acid Level 1.3mmol/L (0.4-2.0) Calcium Level 10.5mg/dL (8.5-10.1) Magnesium Level 2.0mg/dL (1.6-2.6) Total Bilirubin 0.9mg/dL (0.0-1.2) Aspartate Amino Transf (AST/SGOT) 82U/L (0-50) Alanine Aminotransferase (ALT/SGPT) 113U/L (0-32) Alkaline Phosphatase 192U/L (25-165) Total Protein 8.0g/dL (6.4-8.4) Albumin 4.3g/dL (3.4-5.0) Lipase 28U/L (13-60) Urine Color Yellow (YELLOW) Urine Appearance Cloudy (CLEAR,HAZY) Urine pH 7.0 (5.0-8.0) Urine Specific [place] 1.010 (1.003-1.035) Urine Protein 100mg/dL (NEG,TRACE) Urine Glucose (UA) Negativemg/dL (NEGATIVE) Urine Ketones Negativemg/dL (NEGATIVE) Urine Occult Blood Moderate (NEGATIVE) Urine Nitrite Positive (NEGATIVE) Urine Bilirubin Negative (NEGATIVE) Urine Urobilinogen Normalmg/dL (NORMAL) Urine Leukocyte Esterase Large (NEGATIVE) Urine RBC 11-50/hpf (0-2) Urine WBC Packed/hpf (0-5) Urine Epithelial Cells Occasional/hpf (NONE-MOD) Urine Crystals None seen (NONE SEEN) Urine Bacteria Moderate/hpf (NONE-FEW) Urine Hyaline Casts None/lpf (NONE) Urine Granular Casts None seen (NONE SEEN) Urine Waxy Casts None seen (NONE SEEN) Urine Red Blood Cell Casts None seen (NONE SEEN) Urine White Blood Cell Casts None seen (NONE SEEN) Urine Mucus None seen (None Seen) Urine Trichomonas None seen (NONE SEEN) Urine Yeast None (NONE SEEN) Urinalysis Comment None Urine Culture Reflexed Indicated Procalcitonin 0.28ng/mL (0.00-0.08) Assessment/Plan Assessment/Plan A: * Warfarin dosing management by pharmacy for 67 y/o woman with history of DVT and PE and atrial fibrillation * INR subtherapeutic at 1.09 * Patient takes warfarin 4 mg daily at home per medication reconciliation * She is on heparin 5000units SQ q8h P: * Give one 4 mg warfarin dose tonight * Reassess INR in the morning * Pharmacy to dose from there Thank you. Pharmacy will continue to follow this patient. Sharon Jackson Jul 09, 2017 01:12
[2017-07-09 04:52] VITALS: PULSE 84
[2017-07-09 05:15] VITALS: BP 110/65; PULSE 81; RESP 17; O2SAT 93
--- NOTE | 2017-07-09 05:59 | NUR ---
Arrival on unit Pt arrived to [facility] rm 1031 at 2115 from the ED via gurney. Pt was transferred with 4 persons and a slide board to bed. Homa sling placed under Pt as she will be a full homa to transfer due to dx of MS and immobile from waist down. Pt is CPR. A/O x4, making needs known, very pleasant. Pt has colostomy with loose brown stool and subra pubic catheter draining teresa urine with sediment to gravity. Pt denies pain, IV patent, asymptomatic, IV fluids started. Diet is ADA carb consistent. Pt with dx of UTI and antibiotics started. Oriented to room and call light. Pt has been here before many times and is familiar and comfortable. Pt is bedrest, uses electric w/c at home at times. Care continues.
[2017-07-09 06:59] LABS: BASOPHILS % (AUTO) 0.2 % (0-3); EOSINOPHILS % (AUTO) 0.3 % (0-5); MONOCYTES % (AUTO) 7.8 % (4-12); Mean Corpuscular Hemoglobin 28.7 pg (27.0-35.0); Mean Corpuscular Volume 89.9 fL (81-100); NEUTROPHILS % (AUTO) 74.9 % (40-74); Platelet Count 163 bil/L (150-400)
[2017-07-09 07:16] LABS: INR 1.12 ratio
[2017-07-09 07:44] LABS: Magnesium 1.9 mg/dL (1.6-2.6)
[2017-07-09 07:50] VITALS: PULSE 84
[2017-07-09] MEDS: Insulin LISPRO 300 Unit/3 mL Inj SUBQ SCH ×4 (08:00→23:53)
[2017-07-09 09:18] VITALS: BP 115/69; PULSE 77; RESP 18; O2SAT 94
[2017-07-09] MEDS: Cefepime Inj 1,000 MG in Dextrose 5% Minibag Plus 50 ML IV SCH ×2 (09:49→20:39)
[2017-07-09] MEDS: Nystatin 100,000 Unit/Gm 15 Gm Powder TOPICAL PRN (09:52)
[2017-07-09] MEDS: Insulin Human NPH 100 Unit/mL 3 mL Inj SUBQ SCH ×2 (09:54→23:48)
[2017-07-09] MEDS: Potassium Chloride 20 mEq SR Tablet PO SCH (10:03)
[2017-07-09 14:35] VITALS: BP 126/71; PULSE 79; RESP 18; O2SAT 94
--- NOTE | 2017-07-09 16:15 | CONS ---
[address] [address] CONSULTATION REPORT PATIENT: GARY GORDON : 1950 MR#: [id number] ADMIT: 07/08/2017 JOB ID: [id number] DATE OF SERVICE: 07/09/2017 INFECTIOUS DISEASE CONSULTATION: I thank Dr. El for this timely consult. REASON FOR CONSULTATION: Complicated urinary tract infection. HISTORY OF PRESENT ILLNESS: The patient is a 67-year-old woman with advanced multiple sclerosis who is functionally bedridden secondary to hemiparesis who has an indwelling chronic Peacock as well as having undergone colostomy. I have seen her numerous times over the last three years for a very complex urinary tract infections and the most recent of these visits was in late January. In late January she presented and was clearly septic and very toxic with a complicated UTI which was eventually found to be related to an impacted stone. She recovered after that and was discharged after that admission and was discharged home on a substantial about two week course of intravenous cephalosporin therapy. Subsequently she has done relatively well with respect to her UTI situation and her stent that had been placed in her ureter has been removed. In any event, she presented yesterday once again to the hospital with some generalized weakness, decreased mental status and obtundation that really started on July 07. This is a typical pattern with which she presents with UTI. She and her family reported confusion, diminished appetite and lethargy with very little else in the way of symptomatology. This is a fairly typical presentation for her and she tends to recover reasonably rapidly unless she is especially toxic. Today, the patient tells me she is rapidly returning to her normal self. As usual, she is quite tearful this afternoon and states she really no longer has any symptoms. As is typical of her admission, she already is advocating for an early discharge and wants to minimize her hospital days as much as possible. Today she denies any fevers, chills or sweats. She states she is no longer confused and also denies sore throat, significant cough or chest pain, nausea or vomiting. She notes she has, of course, the chronic suprapubic as well as the chronic colostomy. PAST MEDICAL HISTORY: 1. Multiple sclerosis with paraplegia, neurogenic bladder and history of multiple decubitus ulcers. 2. History of recurrent and multi-drug resistant UTIs. 3. History of MRSA wound infections. 4. Recurrent aspiration pneumonia. 5. Insulin-dependent type 2 diabetes. 6. Hypothyroidism. 7. 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 8. History of breast cancer. 9. History of tongue cancer. 10. Paroxysmal atrial fibrillation. 11. History of recurrent GI bleed. 12. Chronically elevated LFTs thought to be due to SCHMITT. ALLERGIES: Include SULFA DRUGS. Most CEPHALOSPORINS though she seems to tolerate cefuroxime and cefepime at least, QUINOLONES, NITROFURANTOIN and FLAGYL. She does tolerate, as mentioned, cefuroxime, ceftriaxone, cefepime and carbapenems. SOCIAL HISTORY: The patient lives in [place] with her and oftentimes a daughter. She neither smokes nor drinks. FAMILY HISTORY: Negative for TB in first degree relatives. REVIEW OF SYSTEMS: Is basically as stated above. The patient currently has no fevers, chills, sweats, headache, sore throat, cough, shortness of breath or chest pain. She denies nausea, vomiting or diarrhea. She is having no problems with her colostomy. She states she her skin is in good condition with no skin breakdown. The remainder of the review of systems basically negative. PHYSICAL EXAMINATION: Reveals an afebrile woman. Temperature 36.9, pulse 79, respiratory rate 18, blood pressure 126/71. She is saturating well on room air and in no acute distress. Examination of the mental status reveals that she is oriented, tearful and in no distress. Head without trauma. Eyes without conjunctivitis or scleral icterus. Nose normal. Oral cavity without thrush or hairy leukoplakia. Neck supple. Lungs relatively clear though I could not get the patient to sit up or roll over so anterior clear. Cardiac tones without new murmur. Regular rate and rhythm noted. Abdomen soft, nontender. There is a colostomy present. The abdomen is a bit distended but soft and without focal mass or tenderness. She has a suprapubic catheter. She has hemiparesis and she cannot move her lower extremities. The lower extremities are without evidence of skin breakdown, edema or synovitis. Remainder of the physical examination unremarkable. LABORATORIES: Include white count 15,000 yesterday. It is already normal today at 8000 with basically normal differential. It had shown a left shift yesterday. Creatinine is 1, which is actually better than her baseline interestingly. LFTs still elevated as they have been in the past. Her ALT is now 129. It usually is in a range between 50 and 110s, is a little bit above normal. Procalcitonin 0.28. This is much better than on prior admissions. Recall that during her late January admission, her procalcitonin was over 50 on admission. Urinalysis shows 11-50 white cells. That urinalysis is growing gram-negative rods to be identified. In reviewing prior urine cultures, it is notable that her January admission grew Proteus. She grew Proteus and Alcaligenes prior to that. In August 2016, she grew Morganella and other organisms prior to that. IMAGING: No imaging has been done on this admission. IMPRESSION: This is yet another in a series of admissions for complicated urinary tract infections with this unfortunate woman with advanced multiple sclerosis. During her last admission in late January and early February, the patient was frankly in shock and critically ill with an impacted stone and very high procalcitonin levels. This time it appears much more benign as the patient came in yesterday a bit obtunded and has already returned basically to her normal state of health. Oral therapy for her is always fraught with difficulty though because of her multiple allergies, but I think what we might do here is wait for the cultures, and if there is an appropriate susceptibility, try and treat her with an oral cephalosporin drug such as cefdinir or cefuroxime. If this is not feasible, we could consider a short course of IV outpatient therapy using peripheral IVs at home or in the [facility]. Another option might be the use of fosfomycin if we think this was strictly a lower urinary tract infection. RECOMMENDATIONS: 1. For now we will continue with cefepime as she seems to be tolerating it. 2. We await the susceptibilities tomorrow and depending on those susceptibilities, we may be able to switch to oral cephalosporin. 3. Even if this is a highly resistant organism, we may be able to give just a short course of an IV agent, either cephalosporin or carbapenem, and then switch to either oral cephalosporin or perhaps even fosfomycin to facilitate an early discharge. 4. I will likely not be rounding tomorrow but please contact me by telephone and we can discuss the susceptibility results and make a discharge plan for this complex woman.
--- NOTE | 2017-07-09 16:31 | NUR ---
mental status pt is alert, no confusion noted at this time, VSS, urine still cloudy with sediment from S/P cath
--- NOTE | 2017-07-09 16:34 | NUR ---
Social Work: Initial Assessment/Readiness for Discharge/Multi-Disciplinary Rounds D: EMR reviewed. Please see Initial Assessment linked to this note for more information. Pt is a 67 y/o female admitted [facility] for UTI per H&P. Pt does not have a readmit risk score assigned. Pt's insurance is [employer] and PCP is Karely EDUARDO. SW met with pt at bedside to conduct initial assessment. Pt was alert and oriented x3. SW explained role and wrote phone number on white board. SW provided "Your Discharge Planning Checklist" and encouraged pt to contact SW for any discharge planning questions. Pt discussed in multidisciplinary rounds. Per MD, pt may discharge home today or tomorrow pending ID. No SW needs identified, no MD orders received. SW will continue to follow for ID recommendations and potential needs at time of discharge . Pt lives at home with her spouse and family in [place]. Pt needs assistance with all ADLs. Pt has a hospital bed, barrier lift, and electric wheelchair at home. Pt's spouse owns a wheelchair van and provides transport for pt. Pt is open with [facility] NDIA[facility] RN PT [employer] [facility] [facility] 3x/wk M|W|F. Pt has a colostomy at baseline. Pt has ample family support and care at home. Pt stated she has no concerns at this time regarding discharge and her spouse will provide transport when pt is medically stable for discharge. SW provided a copy of DPOA/advanced directive ppw and encouraged pt to provide a notarized copy to the hospital once complete. A: Pt who is not independent at baseline and does not have the capacity for self care without assistance. Pt has ample assistance at home and owns a hospital bed, barrier lift, and electric wheelchair at baseline. Pt is also open with [facility] NDIA[facility] RN PT [employer] 3x/wk M|W|F. Pt has a colostomy at baseline which is cared for by family and [employer]. No concerns identified for pt's care at home due to ample support, DME, and ongoing HH. P: Pt anticipated to discharge today or tomorrow pending ID. Pt anticipated to discharge home with spouse via POV wheelchair van. Pt to resume [facility] RN PT [employer] 3x/wk M|W|F. SW to request resumption of HH care orders and fax to [facility] at time of discharge. [facility] notified and RIAZ provided access. JOSUÉ Talavera Addendum: 07/09/17 at 1645 by BRIANNE RIZO Amended: Links added.
--- NOTE | 2017-07-09 17:04 | NUR ---
LUPILLO explained and signed. Copy of WESLEY given to pt.
[2017-07-09 22:11] VITALS: BP 126/70; PULSE 76; RESP 16; O2SAT 95
[2017-07-09] MEDS ORDERED: Epinephrine Racemic 2.25% 0.5 mL Inhalation Solution NEB ONE (22:34)
[2017-07-09] MEDS ORDERED: Albuterol 2.5 mg/3 mL Inhalation Solution NEB ONE (22:38)
[2017-07-10] VITALS (7 sets, daily range): BP systolic 113–127; BP diastolic 65–73; PULSE 73–81; RESP 15–17; O2SAT 93–95
[2017-07-10] MEDS: Heparin 5,000 Unit/mL Inj SUBQ SCH ×3 (01:45→17:49)
[2017-07-10] MEDS: 0.9% Sodium Chloride 1,000 ML IV SCH ×3 (02:24→22:24)
--- NOTE | 2017-07-10 04:18 | NUR ---
Mental status/activity Pt has been A/O 3 all shift. Very pleasant, no confusion noted. No c/o pain or NV. Suprapubic cath patent draining yello urine to gravity, continues to have sediment. Pt in bed all shift, repositioned every 2hrs-off loading only, Pt refuses to lie on side. Care continues
[2017-07-10 08:18] LABS: BASOPHILS % (AUTO) 0.6 % (0-3); MONOCYTES % (AUTO) 7.8 % (4-12); Mean Corpuscular Volume 90.2 fL (81-100); NEUTROPHILS % (AUTO) 60.8 % (40-74); Platelet Count 167 bil/L (150-400)
[2017-07-10 08:52] LABS: INR 1.19 ratio
[2017-07-10] MEDS: Cefepime Inj 1,000 MG in Dextrose 5% Minibag Plus 50 ML IV SCH ×2 (09:33→21:43)
[2017-07-10] MEDS: Potassium Chloride 20 mEq SR Tablet PO SCH (10:56)
[2017-07-10] MEDS: Insulin LISPRO 300 Unit/3 mL Inj SUBQ SCH ×4 (11:00→23:14)
[2017-07-10] MEDS: Insulin Human NPH 100 Unit/mL 3 mL Inj SUBQ SCH ×2 (11:01→23:13)
--- NOTE | 2017-07-10 11:32 | PCM.PNMED ---
Subjective Date of Service Jul 10, 2017 Subjective no overnight event, pt remained strong, alert and oriented, afebrile seen by yesterday, awaits final UCX Exam Vital Signs Vital Sign - Last Date Time Temp Pulse Resp B/P Pulse Ox O2 Delivery O2 Flow Rate FiO2 07/10/17 08:39 37.1 81 17 113/68 94 Room Air Intake and Output 07/09/17 07/09/17 07/10/17 Cumulative From/Thru 15:00 23:00 07:00 07/08/17 18:18 - 07/10/17 06:57 Intake Total 1270 ml 1602 ml 4896 ml Output Total 1000 ml 1400 ml 3600 ml Balance 270 ml 202 ml 1296 ml Intake Oral 1270 ml 800 ml 2470 ml IV Total 802 ml 2426 ml Output Urine Total 1000 ml 1200 ml 3200 ml Stool Total 200 ml 400 ml # Bowel Movements 0 IVs and Medications Medications Reviewed: Medications were reviewed in detail Lab and Diagnostics Result Diagram: 07/10/17 0726 07/10/17 0726 Microbiology Blood culture 2 pending. Urine culture pending. . 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 acute, active UTI in the setting of self-catherization, MS, POA, pt had multiple MDR UTI in the past. on admission, SIRS negative with mildly elevated wbc, PCT. pt was started on ceftriaxone 2 g in ED. Given history of pseudomonas and Proteus mirabilis UTI in the past sensitive to cefepime, therefore cefepime continued. ID consulted on 07/09. -pt clinically remained stable, afebrile. -continue cefepime for now, until UCX returns, as per . -awaits BCX, UCX, - Continue tamsulosin 0.4 mg daily at bedtime. - Maintain good hygienic technique and keep catheter sterile. Changed weekly and recently changed by caregiver. - Needs closely monitoring and Urology follow up as outpatient Chronic problems: 2. Paroxysmal atrial fibrillation, present on admission. Stable. - Continue to monitor on telemetry. - Subtherapeutic INR at 1.09. Continue Warfarin with dosing per pharmacy. 3. Hypertension, present on admission. Stable. - Not medically treated. - Continue to monitor BP 4. Acquired hypothyroidism, present on admission. Stable. - Continue levothyroxine 112 g daily. 5. Multiple sclerosis, present on admission. Stable. - The patient is bedbound with internally rotated and flaccid lower extremities. - Continue Baclofen 20 mg twice a day for spasticity. 6. Diabetes mellitus type II, insulin using, present on admission. Stable. - Last hemoglobin A1c 8.1% in 01/2017. Repeat hemoglobin A1c pending. - Ordered carbohydrate consistent/heart healthy diet. - Continue high dose correctional scale insulin. - Continue NPH 40 units every morning and 45 units every afternoon. 7. Chronically elevated LFT's since 2009, present on admission. Stable. - The patient has had an extensive GI workup in the past suspect for which they suspect it is multifactorial and due to meds and NAFLD. - Continue to monitor with CMP daily. - May want to consider a GI follow-up as an outpatient to discern etiology of liver disease and follow-up the previous liver workup done in the past as outpatient records do not indicate this has been done. PRN antiemetics: Zofran and Maalox. PRN bowel regimen: Senna and MiraLAX. PRN analgesics: Tylenol. dispo: likely 1-2more days, likely iv abx short course. VTE Prophylaxis: Sub-Q Heparin (Unfractionated) (until therapeutic on warfarin) , SCDs, Other (warfarin) Resuscitation Status: CPR: Attempt Resuscitation Time spent 35min Kierra Neil MD Jul 10, 2017 09:33
--- NOTE | 2017-07-10 20:12 | NUR ---
Skin integrity Patient with poor skin integrity sri anal area with macerated /excoriated skin. Patient with yeasty odor nystatin cream applied after sri care. Patient with previous pressure area that have scarring noted to buttocks. Small open area noted to medial coccyx area. incontinent brief removed so that area can get air to it. Patient has suprapubic cath and colostomy.
[2017-07-10] MEDS: Nystatin 100,000 Unit/Gm 15 Gm Powder TOPICAL PRN (21:43)
[2017-07-11 00:02] VITALS: PULSE 76
[2017-07-11] MEDS ORDERED: 0.9% Sodium Chloride 250 ML ONE (01:55)
[2017-07-11] MEDS: Heparin 5,000 Unit/mL Inj SUBQ SCH ×2 (01:59→09:32)
[2017-07-11 07:24] VITALS: BP 117/71; PULSE 71; RESP 18; O2SAT 96
[2017-07-11 07:34] LABS: INR 1.3 ratio
--- NOTE | 2017-07-11 08:02 | PCM.PHAPRO ---
Progress General malaise. . WARFARIN DOSING PER PHARMACY [facility] NTV RTM DFF Date Jul 10-Jul 11-Jun INR 1.09 1.19 1.3 INR change 0.1 0.11 Warf Dose 4 4 5 -Subtherapeutic INR but uptrending. Unclear home compliance. Currently of cefepime for suspected UTI. -With subtherapeutic level at presentation to hospital and slow uptrend, will make slight dose increase to warfarin 5 mg this evening. Limiting increase due to concurrent ABX use Ed Dominguez, PharmD Alberto,Ed Patel Jul 11, 2017 08:02
[2017-07-11] MEDS: 0.9% Sodium Chloride 1,000 ML IV SCH (08:24)
[2017-07-11] MEDS ORDERED: CEFU250T82 PO (09:01)
[2017-07-11] MEDS: Cefepime Inj 1,000 MG in Dextrose 5% Minibag Plus 50 ML IV SCH (09:30)
[2017-07-11] MEDS: Potassium Chloride 20 mEq SR Tablet PO SCH (09:31)
[2017-07-11] MEDS: Insulin Human NPH 100 Unit/mL 3 mL Inj SUBQ SCH (09:33)
[2017-07-11] MEDS: Insulin LISPRO 300 Unit/3 mL Inj SUBQ SCH ×2 (09:33→12:20)
--- NOTE | 2017-07-11 11:01 | PCM.DIMED ---
Discharge Instructions Date of Service Jul 11, 2017 Dates of Hospitalization Jul 08, 2017 at 20:35 Discharge Diagnosis Discharge Diagnosis Complicated UTI with Providencia Rettgeri in the setting of multiple sclerosis, self urinary catheterization Medication Instructions Additional med instructions Please continue cefuroxime to 50 mg twice a day for 12 more days Diet Discharge Diet: No restrictions Activity Discharge Activity: No restrictions Call your provider Call your provider for: Fever or Chills, Shortness of breath, Excessive diarrhea Patient Instructions Patient Instructions Your were hospitalized because of decreased level of consciousness, likely due to urinary tract infection. Your treated appropriately with IV antibiotics and discharged with oral antibiotics. Please follow up with primary doctor in 2 weeks [facility] will be resumed on discharge with PT/OT/RN/HH 3x/wk Follow-up Provider: Michelle Nova DO Follow-up with PCP in: 2 weeks Kierra Neil MD Jul 11, 2017 11:00
--- NOTE | 2017-07-11 14:13 | NUR ---
"Social Work: Discharge/Multi-Disciplinary Rounds D: EMR reviewed. Please see Initial Assessment linked to this note for more information. Pt discussed in multidisciplinary rounds and is medically stable for discharge home via POV and resume HH services. No other SW needs identified. No other MD orders received. A: Pt who is not independent at baseline and does not have the capacity for self care without assistance. Pt has ample assistance at home and owns a hospital bed, barrier lift, and electric wheelchair at baseline. Pt is also open with [facility] NDIAYE RN PT [employer] 3x/wk M|W|F. Pt has a colostomy at baseline which is cared for by family and [employer]. No concerns identified for pt's care at home due to ample support, DME, and ongoing HH. P: Pt to discharge today with spouse via POV wheelchair van. Pt to resume [facility] RN PT [employer] 3x/wk M|W|F. RIAZ updated at [facility] at [facility] and notified [facility] of pt's discharge. Azra agreeable and [facility] will resume HH services. RIAZ provided access. JOSUÉ Talavera"
--- NOTE | 2017-07-11 16:47 | NUR ---
Discharge Patient was discharged home with her . Patient is wheelchair/bed bound related to her MS. Patient transferred to wheelchair via lift in room. Patient given verbal and written home care instructions with present and both agree to understanding them. hard script for antibiotics given and patients will have filled. patient did state a foam thigh guard that fits to her wheelchair was taken off in ER for transfer and did not make it to room with her. Lost and found checked nothing found so patients name was given to charge nurse in ER who will continue to look for piece.
--- NOTE | 2017-07-12 00:34 | PCM.DC.MED ---
Discharge Summary Date of Service Jul 11, 2017 Dates of Hospitalization Date of Hospital Admission Jul 08, 2017 at 20:35 Date of Discharge: Jul 11, 2017 Providers: Admitting Physician: Refugio White MD Primary Care Physician: Karely Deshpande Attending Physician: Kierra Reese MD Diagnosis at Time of Discharge Diagnosis at Time of Discharge acute dx Complicated UTI with Providencia Rettgeri in the setting of multiple sclerosis, self urinary catheterization chronic dx Paroxysmal atrial fibrillation, Hypertension Acquired hypothyroidism Multiple sclerosis Diabetes mellitus type II elevated liver enzymes Brief History HPI obtained by on 07/08 Leigha Lutz is a 67-year-old female with a past medical history significant for 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 The patient was recently diagnosed with bladder stones and a left ureteral stone status post cystolitholapaxy and left stent removal. Her family reports that the patient has been experiencing confusion and decreased appetite. She denies recent headache, vision changes, sore throat, cough, congestion, chest pain, shortness of breath, abdominal pain, nausea, vomiting, fever, chills, bladder pain or discomfort around the suprapubic catheter, diarrhea or constipation. She reports that she is unsure why she is at the hospital as she feels well and does not believe she was lethargic as her reported. The patient was previously admitted for 1 week to the ED in for acute kidney injury, UTI and sepsis. Vital signs in the ER: Temperature 37.8. Pulse 127. Respiratory rate 20. Blood pressure 129/76. Pulse ox 97% on room air. She was given ondansetron IV 4 mg 1, ceftriaxone IV 2 g 1, vancomycin with dosing per pharmacy, and 1 L of NS. PCP is Karely EDUARDO. Urologist is Dr. Arora. . 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 acute dx UTI in the setting of self-catherization, MS, Since pt had multiple MDR UTI in the past. Increased lethargy was thought to be from UTI. SIRS was negative with mildly elevated wbc, PCT. pt was started on ceftriaxone 2 g in ED. Given history of pseudomonas and Proteus mirabilis UTI in the past sensitive to cefepime, therefore cefepime continued. ID consulted on 07/09. Based final UCX-Providencia, pt was discharged to Cefuroxime to finish 14days course. pt remained at baseline mental status, pleasant, deemed safe for d/c. Chronic dx 2. Paroxysmal atrial fibrillation, present on admission. Stable. - Continue to monitor on telemetry. - Subtherapeutic INR at 1.09. Continue Warfarin with dosing per pharmacy. 3. Hypertension, present on admission. Stable. - Not medically treated. - Continue to monitor BP 4. Acquired hypothyroidism, present on admission. Stable. - Continue levothyroxine 112 g daily. 5. Multiple sclerosis, present on admission. Stable. - The patient is bedbound with internally rotated and flaccid lower extremities. - Continue Baclofen 20 mg twice a day for spasticity. 6. Diabetes mellitus type II, insulin using, present on admission. Stable. - Last hemoglobin A1c 8.1% in 01/2017. Repeat hemoglobin A1c pending. - Ordered carbohydrate consistent/heart healthy diet. - Continue high dose correctional scale insulin. - Continue NPH 40 units every morning and 45 units every afternoon. 7. Chronically elevated LFT's since 2009, present on admission. Stable. - The patient has had an extensive GI workup in the past suspect for which they suspect it is multifactorial and due to meds and NAFLD. - Continue to monitor with CMP daily. - May want to consider a GI follow-up as an outpatient to discern etiology of liver disease and follow-up the previous liver workup done in the past as outpatient records do not indicate this has been done. PRN antiemetics: Zofran and Maalox. PRN bowel regimen: Senna and MiraLAX. PRN analgesics: Tylenol. dispo: likely 1-2more days, likely iv abx short course. Exam Vital Signs (Last) Date Time Temp Pulse Resp B/P Pulse Ox O2 Delivery O2 Flow Rate FiO2 07/11/17 07:24 37.0 71 18 117/71 96 Room Air Exam pt was examined on the day of d/c Test 07/08/17 19:20 07/08/17 19:32 07/08/17 19:40 07/09/17 06:33 Lactic Acid Level 1.3mmol/L (0.4-2.0) Lipase 28U/L (13-60) Urine Color Yellow (YELLOW) Urine Appearance Cloudy (CLEAR,HAZY) Urine pH 7.0 (5.0-8.0) Urine Specific Oaks 1.010 (1.003-1.035) Urine Protein 100mg/dL (NEG,TRACE) Urine Glucose (UA) Negativemg/dL (NEGATIVE) Urine Ketones Negativemg/dL (NEGATIVE) Urine Occult Blood Moderate (NEGATIVE) Urine Nitrite Positive (NEGATIVE) Urine Bilirubin Negative (NEGATIVE) Urine Urobilinogen Normalmg/dL (NORMAL) Urine Leukocyte Esterase Large (NEGATIVE) Urine RBC 11-50/hpf (0-2) Urine WBC Packed/hpf (0-5) Urine Epithelial Cells Occasional/hpf (NONE-MOD) Urine Crystals None seen (NONE SEEN) Urine Bacteria Moderate/hpf (NONE-FEW) Urine Hyaline Casts None/lpf (NONE) Urine Granular Casts None seen (NONE SEEN) Urine Waxy Casts None seen (NONE SEEN) Urine Red Blood Cell Casts None seen (NONE SEEN) Urine White Blood Cell Casts None seen (NONE SEEN) Urine Mucus None seen (None Seen) Urine Trichomonas None seen (NONE SEEN) Urine Yeast None (NONE SEEN) Urinalysis Comment None Urine Culture Reflexed Indicated Hemoglobin A1c 7.3% (4.8-5.6) Magnesium Level 1.9mg/dL (1.6-2.6) Test 07/10/17 07:26 07/11/17 06:40 White Blood Count 5.4th/mm3 (3.8-10.1) Red Blood Count 3.46mil/mm3 (3.90-5.20) Hemoglobin 9.7g/dL (12.0-15.6) Hematocrit 31.2% (35.0-46.0) Mean Corpuscular Volume 90.2fL (81-100) Mean Corpuscular Hemoglobin 28.0pg (27.0-35.0) Mean Corpuscular Hemoglobin Concent 31.1% (32.0-37.0) Red Cell Distribution Width 14.5% (12.3-15.4) Platelet Count 167bil/L (150-400) Neutrophils (%) (Auto) 60.8% (40-74) Lymphocytes (%) (Auto) 27.2% (14-46) Monocytes (%) (Auto) 7.8% (4-12) Eosinophils (%) (Auto) 3.0% (0-5) Basophils (%) (Auto) 0.6% (0-3) Procalcitonin 0.24ng/mL (0.00-0.08) Prothrombin Time 14.0sec (8.1-12.5) Prothromb Time International Ratio 1.30ratio Sodium Level 142mEq/L (134-144) Potassium Level 4.5mEq/L (3.5-5.2) Chloride Level 110mEq/L (97-108) Carbon Dioxide Level 19mmol/L (18-29) Blood Urea Nitrogen 22mg/dL (8-27) Creatinine 0.81mg/dL (0.57-1.00) Estimat Glomerular Filtration Rate 100mL/min (>59) Glucose Level 153mg/dL (60-99) Calcium Level 9.5mg/dL (8.5-10.1) Total Bilirubin 0.3mg/dL (0.0-1.2) Aspartate Amino Transf (AST/SGOT) 115U/L (0-50) Alanine Aminotransferase (ALT/SGPT) 304U/L (0-32) Alkaline Phosphatase 257U/L (25-165) Total Protein 6.3g/dL (6.4-8.4) Albumin 3.6g/dL (3.4-5.0) Microbiology Results Blood culture 2 pending. Urine culture pending. . Discharge Medications Discharge Medications Ascorbate Calcium (Vitamin C) 500 Mg Tablet 500 MG PO BID (Reported) Baclofen (Baclofen) 20 Mg Tablet 20 MG PO BID (Reported) Cefuroxime Axetil (Cefuroxime) 250 Mg Tablet 250 MG PO BID Prescribed by: KIERRA REESE MD Levothyroxine (Levothyroxine) 112 Mcg Tablet 112 MCG PO DAILY (Reported) Magnesium Oxide (Magnesium Oxide) 250 Mg Tablet 325 MG PO DAILY (Reported) Multivits-Min/FA/Lycopene/Lut (Centrum Silver Tablet) 1 Each Tablet 1 EACH PO DAILY (Reported) NPH, Human Insulin Isophane (HUMulin-N U100 Insulin Vial) 100 Unit/1 Ml Vial 45 UNIT SUBQ QPM (Reported) NPH, Human Insulin Isophane (HUMulin-N U100 Insulin Vial) 100 Unit/1 Ml Vial 40 UNIT SUBQ QAM (Reported) Niacin (Niacin) 500 Mg Capsule.er 500 MG PO BID (Reported) Potassium Chloride (Potassium Chloride) 20 Meq Tab.er.prt 20 MEQ PO DAILY ( Reported) TAKE WITH FOOD Tamsulosin (Flomax) 0.4 Mg Capsule 0.4 MG PO HS (Reported) Warfarin Sodium (Warfarin Sodium) 4 Mg Tablet 4 MG PO DAILY (Reported) As needed Insulin Lispro (HumaLOG U100 Insulin Pen) 100 Unit/1 Ml Insuln.pen 5-10 UNIT SUBQ ACHS PRN PRN hyperglycemia (Reported) sliding scale insulin Nystatin (Nystatin) 15 Gm Powder 1 APPLIC TP TID PRN PRN rash (Reported) Additional med instructions Please continue cefuroxime to 50 mg twice a day for 12 more days Followup Plan Discharge Diet: No restrictions Discharge Activity: No restrictions Patient Instructions Your were hospitalized because of decreased level of consciousness, likely due to urinary tract infection. Your treated appropriately with IV antibiotics and discharged with oral antibiotics. Please follow up with primary doctor in 2 weeks [facility] health will be resumed on discharge with PT/OT/RN/HH 3x/wk Follow-up Provider: Michelle Nova DO Follow-up with PCP in: 2 weeks Kierra Reese MD Jul 12, 2017 00:34
== END 2017-07-11 16:05 | disposition home or self-care (01) ==
LOC: SED 18:10 → INTOOBSV 20:35 → OSC 20:35
PROVIDERS: ADMIT Hospitalist; ATTEND Hospitalist
DX: N39.0 Urinary tract infection, site not specified (principal); G35 Multiple sclerosis; N33 Bladder disorders in diseases classified elsewhere; B96.89 Other specified bacterial agents as the cause of diseases classified elsewhere; B96.5 Pseudomonas (aeruginosa) (mallei) (pseudomallei) as the cause of diseases classified elsewhere; I48.0 Paroxysmal atrial fibrillation; Z87.440 Personal history of urinary (tract) infections; Z87.442 Personal history of urinary calculi; E03.9 Hypothyroidism, unspecified; Z85.3 Personal history of malignant neoplasm of breast; E11.9 Type 2 diabetes mellitus without complications; I10 Essential (primary) hypertension; R74.0 Nonspecific elevation of levels of transaminase and lactic acid dehydrogenase [LDH]; Z90.11 Acquired absence of right breast and nipple; Z99.3 Dependence on wheelchair; Z86.14 Personal history of Methicillin resistant Staphylococcus aureus infection; Z88.1 Allergy status to other antibiotic agents; Z93.3 Colostomy status; Z66 Do not resuscitate; Z79.4 Long term (current) use of insulin; Z85.810 Personal history of malignant neoplasm of tongue; Z79.01 Long term (current) use of anticoagulants; Z86.718 Personal history of other venous thrombosis and embolism; Z86.711 Personal history of pulmonary embolism; Z95.0 Presence of cardiac pacemaker
CPT/HCPCS: 36415; 80053; 81000; 83036; 83605; 83690; 83735; 84145; 85025; 85610; 87040; 87077; 87086; 87088; 87186; 96361; 96365; 96366; 96367; 96372; 96375; 99285; G0378; J0692; J0696; J1644; J1815; J2405; J7030; J7050